=== PATIENT | female | born 1955 | race Caucasian/White ===

== ENCOUNTER → 2019-07-26 13:02 | Outpatient (BNVA) | payer MEDICARE, OTHER, SELFPAY | PROVIDERS: Visit Provider Internal Medicine Rheumatology | DX: M05.9 Rheumatoid arthritis with rheumatoid factor, unspecified (principal); L23.0 Allergic contact dermatitis due to metals; M25.561 Pain in right knee; M25.562 Pain in left knee; G89.29 Other chronic pain; Z96.653 Presence of artificial knee joint, bilateral | CPT/HCPCS: 99214 ==

== ENCOUNTER 2019-11-20 06:24 | Emergency (ER) | payer MEDICARE, OTHER, SELFPAY ==
[2019-11-20] VITALS (9 sets, daily range): BP systolic 119–156; BP diastolic 52–75; PULSE 74–81; RESP 16–20; TEMP 36.8; O2SAT 92–100; BMI 44.4
--- NOTE | 2019-11-20 06:45 | XR_ITS ---
WS: [id number] LEFT HIP HISTORY: pain COMPARISON: 04/18/2019 LEFT hip: Quality examination is limited by body habitus. Poor visualization of the joint and osseous structures. Mild narrowing of the hip joint. XR/XR hip LT 2-3V wo/w pel* [id number] IMPRESSION: 1. Technically very limited evaluation of the LEFT hip due to body habitus. 2. No fracture identified.
--- NOTE | 2019-11-20 06:45 | XR_ITS ---
WS: [id number] LEFT KNEE: 3 VIEW(S) TECHNIQUE: AP, oblique(s) and lateral. HISTORY: pain COMPARISON: 04/18/2019 LEFT knee prosthesis with long revision's on each side of the joint space. No joint space narrowing or osteophytes. No joint effusion. No soft tissue abnormality. XR/XR knee LT 3V* [id number] IMPRESSION: 1. Status post LEFT knee arthroplasty. 2. No fracture.
--- NOTE | 2019-11-20 06:45 | USCV_ITS ---
LazaroRadha steinberg Age: 64 Gender: F : 1955 Exam Date: 11/20/2019 08:17 Ordering Phys: Jacinta Moore MD Technologist: Marycruz Vargas [place] [facility] [place]: [place] HISTORY: Left lower extremity pain. PROCEDURES: Comparison: none available. Venous duplex imaging was performed in only the left lower extremity. The following venous structures were evaluated: common femoral vein, profunda vein, proximal portion of the greater saphenous vein, superficial femoral vein, and the popliteal vein. In addition, the posterior tibial and peroneal trunk were evaluated. Serial compression, augmentation maneuvers, and spectral Doppler flow evaluation were performed. FINDINGS: Examination was technically limited due to body habitus. Normal 2-D Doppler and augmentation and compressibility throughout the lower extremity venous structures. Additional imaging through the proximal calf veins also reveals no thrombus. Limited evaluation of the greater saphenous vein is patent with no thrombus.. There is subcutaneous left lower extremity edema noted. CONCLUSIONS No DVT left lower extremity. There is subcutaneous left lower extremity edema noted. Dr. Amy Parsons DO (Electronically Signed) Final Date: 20 Nov 2019 09:55 S
--- NOTE | 2019-11-20 06:45 | XR_ITS ---
WS: [id number] PORTABLE CHEST HISTORY: cp COMPARISON: None available. Lungs are clear and well expanded. No pleural effusion or pneumothorax. Cardiac size: Normal. Mediastinum/Aorta: Normal mediastinum. No osseous abnormality seen. XR/XR chest 1V portable [id number] IMPRESSION: Unremarkable portable chest.
--- NOTE | 2019-11-20 06:45 | ECG_ITS ---
Measurements Intervals [place] Rate: 73 P: 43 ME: 161 QRS: -22 QRSD: 91 T: 7 QT: 363 QTc: 401 SINUS RHYTHM LOW QRS VOLTAGE IN PRECORDIAL LEADS [QRS DEFLECTION < 1.0 mV IN CHEST LEADS] No previous ECG available for comparison Electronically Signed On 11-20-2019 10:29:34 CDT by Ciro Villegas MD [id number]
--- NOTE | 2019-11-20 06:48 | W.ED.EXTPRO ---
HPI - Extremity Problem General: Chief complaint: Extremity Injury, Lower Stated complaint: L LEG PAIN Time Seen by Provider: 11/20/19 06:26 Source: patient Mode of arrival: ambulatory Limitations: no limitations History of Present Illness: HPI Narrative: 64-year-old female with a history of chronic left knee pain from arthritis. Patient has had multiple knee replacements on that knee. She states she started having knee pain again yesterday and is went to her hip as well. States the pain is sharp in nature and much worse with walking. It is improved with rest. States she has had pain in her calf as well and does have a history of DVT in the past. She states she had slight chest pain yesterday with her pain in her knee that is since resolved. She denies any shortness of breath. She denies any fever or cough. MD Complaint: extremity pain Onset (ago): day(s) Pain Consistency: constant Location: left Severity scale (1-10): 6 Quality: sharp Radiation: none Relieving factors: nothing Exacerbating factors: nothing Associated symptoms: Deny chest pain, fever(s) or rash Review of Systems Const: Denies: fever(s), chills, body aches or change in appetite Eyes: Denies: blurry vision or eye discomfort ENMT: Denies: throat pain or dental pain Card: Denies: chest pain Resp: Denies: dyspnea GI: Denies: abdominal pain, nausea, vomiting or diarrhea : Denies: dysuria Musc: Reports: joint pain Skin/Breast: Denies: rash Neuro: Denies: headache(s) Psych: Denies: depression Andrés/Lymph: Denies: easy bruising All/Imm: Denies: urticaria PFSH ED PFSH: Medical History Chronic knee pain after total replacement of both knee joints Hypersensitivity reaction 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, current reaction Surgical History History of bilateral knee replacement Social History Smoking and tobacco status: never smoked Physical Exam Const: COMMON NORMALS: no acute distress, patient oriented x3 and healthy appearing HENMT: COMMON NORMALS: normocephalic and atraumatic HEAD & SCALP: normocephalic and atraumatic Eye: COMMON NORMALS: Equal, round and reactive pupils present and EOMs intact bilaterally PUPIL: Yes Equal, round and reactive pupils present Neck/C-Spine: COMMON NORMALS: full ROM and supple Chest: COMMONS NORMALS: normal inspection of the chest and normal palpation of entire chest wall Resp: COMMON NORMALS: normal respiratory effort, No retractions, No use of accessory muscles and clear to auscultation bilaterally AUSCULTATION: clear to auscultation bilaterally Cardio: COMMON NORMALS: regular rate, regular rhythm and No murmurs present (Cardio) RATE: regular rate RHYTHM: regular rhythm GI: COMMON NORMALS: Normal to inspection, nondistended, normoactive bowel sounds present, Soft to palpation, non-tender and no masses PALPATION: Yes Soft to palpation Extremity: NARRATIVE EXTREMITY EXAM: Tenderness to left calf along with knee and hip on the left side. No warmth or redness. Patient does have swelling but it is chronic due to lymphedema. Neuro: COMMON NORMALS: patient oriented x3, moves all extremities and no focal motor deficits Psych: COMMON NORMALS: mental status grossly normal, Normal thought process present and cooperative THOUGHT PROCESS: Normal thought process present Skin: COMMON NORMALS: no rashes or lesions noted and no wounds GENERAL SKIN EXAM: no rashes or lesions noted Course Vital Signs: Vital signs: Vital Signs Temperature 98.2 F 11/20/19 06:41 Pulse Rate 78 11/20/19 09:39 Respiratory Rate 18 11/20/19 09:39 Blood Pressure 119/52 11/20/19 09:39 Pulse Oximetry 92 11/20/19 09:39 MDM - Extremity (Nontraumatic) MDM Narrative: Medical decision making narrative: Patient presents here with knee and hip pain is acute on chronic in nature. Patient has no signs of blood clot or septic joint. X-rays are normal. Patient is stable for discharge and is to follow-up with primary care doctor in 3 to 5 days return if worsening. Lab Data: Labs: Lab Results 11/20/19 11/20/19 11/20/19 Range/Units 06:45 06:45 06:45 WBC 9.7 (4.0-10.0) 10^3/ uL RBC 4.43 (4.1-5.3) 10^6/u L Hgb 13.1 (11.5-15.3) g/dL Hct 42.2 (37.0-47.0) % MCV 95.3 (81-99) fL MCH 29.6 (28.0-34.0) pg MCHC 31.0 (30.0-36.0) g/dL RDW 14.6 (12.1-15.1) % Plt Count 308 (130-400) 10^3/c mm MPV 10.0 (7.4-10.4) fL Neut % (Auto) 69.0 % Lymph % (Auto) 18.0 % Mcduffie % (Auto) 7.9 % Eos % (Auto) 3.2 % Baso % (Auto) 0.7 % Neut # (Auto) 6.7 (1.8-7.7) 10^3/u L Lymph # (Auto) 1.8 (0.8-4.8) 10^3/u L Mcduffie # (Auto) 0.8 (0.2-0.9) 10^3/u L Eos # (Auto) 0.3 (0.0-0.8) 10^3/u L Baso # (Auto) 0.1 (0.0-0.1) 10^3/u L Nucleated RBC % (a uto) 0 % Nucleated RBCs # 0.0 /100WBC Sodium 138 (136-145) mmol/L Potassium 4.2 (3.5-5.1) mmol/L Chloride 98 (98-107) mmol/L Carbon Dioxide 27 (22-29) mmol/L Anion Gap 17.2 (5-19) BUN 21 (8-23) mg/dL Creatinine 1.0 H (0.5-0.9) mg/dL GFR Calculation 55.5 L (90-130) mL/min Glucose 146 H (65-115) mg/dL Calculated Osmolal ity 285 (285-295) mOsm/k g Calcium 9.8 (8.5-10.5) mg/dL Total Bilirubin 0.3 (0.15-1.2) mg/dL AST 15 (0-32) U/L ALT 22 (0-33) U/L Alkaline Phosphata se 80 (35-105) IU/L Troponin T Baselin e 8 (0-10) ng/mL Troponin T 120 Min cachil dehe (0-10) ng/mL Delta Troponin T (0-10) ABS# Total Protein 7.2 (6.6-8.7) g/dL Albumin 4.3 (3.5-5.2) g/dL Globulin 2.9 (1.3-4.6) g/dL 05/25/20 Range/Units 08:48 WBC (4.0-10.0) 10^3/ uL RBC (4.1-5.3) 10^6/u L Hgb (11.5-15.3) g/dL Hct (37.0-47.0) % MCV (81-99) fL MCH (28.0-34.0) pg MCHC (30.0-36.0) g/dL RDW (12.1-15.1) % Plt Count (130-400) 10^3/c mm MPV (7.4-10.4) fL Neut % (Auto) % Lymph % (Auto) % Mcduffie % (Auto) % Eos % (Auto) % Baso % (Auto) % Neut # (Auto) (1.8-7.7) 10^3/u L Lymph # (Auto) (0.8-4.8) 10^3/u L Mcduffie # (Auto) (0.2-0.9) 10^3/u L Eos # (Auto) (0.0-0.8) 10^3/u L Baso # (Auto) (0.0-0.1) 10^3/u L Nucleated RBC % (a uto) % Nucleated RBCs # /100WBC Sodium (136-145) mmol/L Potassium (3.5-5.1) mmol/L Chloride (98-107) mmol/L Carbon Dioxide (22-29) mmol/L Anion Gap (5-19) BUN (8-23) mg/dL Creatinine (0.5-0.9) mg/dL GFR Calculation (90-130) mL/min Glucose (65-115) mg/dL Calculated Osmolal ity (285-295) mOsm/k g Calcium (8.5-10.5) mg/dL Total Bilirubin (0.15-1.2) mg/dL AST (0-32) U/L ALT (0-33) U/L Alkaline Phosphata se (35-105) IU/L Troponin T Baselin e (0-10) ng/mL Troponin T 120 Min cachil dehe 8.94 (0-10) ng/mL Delta Troponin T 0.94 (0-10) ABS# Total Protein (6.6-8.7) g/dL Albumin (3.5-5.2) g/dL Globulin (1.3-4.6) g/dL Imaging Data^: CXR: Attestation: I personally reviewed and interpreted this imaging study as follows: My impression: no acute abnormality xr L hip: Attestation: I personally reviewed and interpreted this imaging study as follows: My impression: no acute abnormality xr L knee: Attestation: I personally reviewed and interpreted this imaging study as follows: My impression: no acute abnormality EKG Data^: EKG 1: Attestation: I personally reviewed and interpreted this EKG as follows: EKG interpretation date: 11/20/19 EKG interpretation time: 07:16 Interpretation: nsr hr [address] or t wave abnormalities qrs 91 qtc 388 EKG 2: Attestation: I personally reviewed and interpreted this EKG as follows: EKG interpretation date: 11/20/19 EKG interpretation time: 08:46 Interpretation: nsr hr [address] or t wave abnormalities qrs 93 qtc 373 Discharge Plan Discharge Patient Disposition: Home, Self-Care Clinical Impression: Hip pain, left Knee pain, left Qualifiers: Chronicity: acute Qualified Code(s): M25.562 - Pain in left knee Condition: Stable Prescriptions: New Robaxin-750 750 mg tablet 750 mg PO Q6H Qty: 30 RF: 0 Naprosyn 500 mg tablet 500 mg PO BID PRN (Reason: pain) Qty: 20 RF: 0 No Action potassium chloride 10 mEq capsule, extended release 10 meq PO BID RF: 0 oxycodone 5 mg tablet 5 mg PO Q6H PRN (Reason: Pain) RF: 0 losartan 50 mg tablet 25 mg PO DAILY RF: 0 tizanidine 4 mg capsule 4 mg PO Q8H PRN (Reason: Pain) RF: 0 furosemide [Lasix] 20 mg tablet 40 mg PO QAM RF: 0 pioglitazone 30 mg tablet 30 mg PO DAILY RF: 0 albuterol sulfate 90 mcg/actuation HFA aerosol inhaler 2 puff INHALATION Q6H PRN (Reason: Shortness Of Breath) RF: 0 levothyroxine 100 mcg capsule 175 mcg PO DAILY RF: 0 pramipexole 0.5 mg tablet 0.5 mg PO TID RF: 0 diclofenac sodium [Voltaren] 1 % gel 2 gm TOPICAL QID PRN (Reason: UNKNOWN) RF: 0 lactulose 10 gram/15 mL solution See Rx Instructions .ROUTE .COMPLEX RF: 0 aspirin [Aspirin Low Dose] 81 mg Tablet,Delayed Release (Dr/Ec) 81 mg PO DAILY RF: 0 glimepiride 4 mg Tablet 4 mg PO QAM RF: 0 nitroglycerin 0.4 mg Tablet, Sublingual 0.4 mg SUBLINGUAL Q5M PRN (Reason: Chest Pain) RF: 0 gabapentin 300 mg Capsule 300 mg PO TID RF: 0 montelukast 10 mg Tablet 10 mg PO QPM RF: 0 metoprolol succinate 50 mg Capsule,Sprinkle,Er 24hr 50 mg PO DAILY RF: 0 magnesium oxide 400 mg magnesium Tablet 400 mg PO DAILY RF: 0 Calcium 500 500 mg calcium (1,250 mg) Tablet 500 mg PO DAILY RF: 0 Arnuity Ellipta 200 mcg/actuation Blister With Device 1 inh INHALATION DAILY RF: 0 Spiriva Respimat 1.25 mcg/actuation Mist 2 puff INHALATION DAILY RF: 0 Discharge Orders: Discharge Order (Routine); Ordered 11/20/19 Ordered By: Jacinta Moore Discharge Diet: Advance as tolerated Discharge Activity: Resume usual activity Patient Instructions: Knee Pain (ED) Discharge Date/Time: 11/20/19 09:39 Coding Level of Care Code ED Contract Designer for Chg Fwd Exam Comprehensive
[2019-11-20 06:58] LABS: Basophils # 0.1 10^3/uL (0.0-0.1); Basophils % 0.7 %; Eosinophils # 0.3 10^3/uL (0.0-0.8); Eosinophils % 3.2 %; Hematocrit 42.2 % (37.0-47.0); Hemoglobin 13.1 g/dL (11.5-15.3); Lymphocytes # 1.8 10^3/uL (0.8-4.8); Mean Corpuscular Hemoglobin 29.6 pg (28.0-34.0); Mean Corpuscular Volume 95.3 fL (81-99); Monocytes # 0.8 10^3/uL (0.2-0.9); Monocytes % 7.9 %; Neutrophils # 6.7 10^3/uL (1.8-7.7); Nucleated Red Blood Cells % 0 %; Platelet Count 308 10^3/cmm (130-400); Red Blood Count 4.43 10^6/uL (4.1-5.3); Red Cell Distribution Width 14.6 % (12.1-15.1); White Blood Count 9.7 10^3/uL (4.0-10.0)
[2019-11-20] MEDS: ondansetron 2 mg/ML SDV 2 mL 4 MG IVP (07:05)
[2019-11-20] MEDS: morphine 4 mg/mL SDV 1 mL IVP ×3 (07:05→08:46)
[2019-11-20 07:11] LABS: Alanine Aminotransferase 22 U/L (0-33); Albumin Level 4.3 g/dL (3.5-5.2); Alkaline Phosphatase 80 IU/L (35-105); Anion Gap 17.2 (5-19); Aspartate Amino Transferase 15 U/L (0-32); Blood Urea Nitrogen 21 mg/dL (8-23); Calcium 9.8 mg/dL (8.5-10.5); Carbon Dioxide 27 mmol/L (22-29); Chloride 98 mmol/L (98-107); Globulin 2.9 g/dL (1.3-4.6); Glomerular Filtration Rate 55.5 mL/min (90-130); Glucose 146 mg/dL (65-115); Osmolality Calculated 285 mOsm/kg (285-295); Potassium 4.2 mmol/L (3.5-5.1); Sodium 138 mmol/L (136-145); Total Bilirubin 0.3 mg/dL (0.15-1.2); Total Protein 7.2 g/dL (6.6-8.7)
[2019-11-20 07:12] LABS: Troponin(5th) Baseline 8 ng/mL (0-10)
[2019-11-20] MEDS: dexamethasone 10 mg/mL INJ IVP (09:09)
[2019-11-20 09:25] LABS: Troponin 5 2HR 8.94 ng/mL (0-10); Troponin 5 2HR Delta 0.94 ABS# (0-10)
--- NOTE | 2019-11-20 12:45 | ECG_ITS ---
Measurements Intervals [place] Rate: 64 P: 52 MS: 155 QRS: -16 QRSD: 93 T: 26 QT: 364 QTc: 376 SINUS RHYTHM WITH OCCASIONAL VENTRICULAR PREMATURE COMPLEXES LOW QRS VOLTAGE IN PRECORDIAL LEADS [QRS DEFLECTION < 1.0 mV IN CHEST LEADS] POSSIBLE ANTERIOR MYOCARDIAL INFARCTION , PROBABLY OLD [30 ms Q WAVE IN V3/V4, OR R < 0.2 mV IN V4] No previous ECG available for comparison Electronically Signed On 11-20-2019 10:33:21 CDT by Ciro Villegas MD [email or web address]
== END 2019-11-20 09:39 | disposition home or self-care (01) ==
PROVIDERS: Emergency Provider Emergency Medicine
DX: M25.552 Pain in left hip (principal); Z79.82 Long term (current) use of aspirin; Z96.653 Presence of artificial knee joint, bilateral
CPT/HCPCS: 12345; 36415; 71045; 73502; 73562; 80053; 84484; 85025; 93005; 93010; 93971; 96374; 96375; 96376; 99283; 99284; J1100; J2270; J2405

== ENCOUNTER 2019-12-07 06:00 | Outpatient (RCR) | payer MEDICARE, OTHER, SELFPAY | END 2019-12-26 23:59 | disposition home or self-care (01) | LOC: MPT 06:00 | PROVIDERS: PCP Internal Medicine; Visit Provider Internal Medicine | DX: M54.42 Lumbago with sciatica, left side (principal) | CPT/HCPCS: 97110; 97140; 97161; 97530 ==

== ENCOUNTER 2020-01-24 15:18 | Outpatient (CLI) | payer MEDICARE, OTHER, SELFPAY ==
[2020-01-24 15:50] LABS: Basophils # 0.1 10^3/uL (0.0-0.1); Basophils % 0.9 %; Eosinophils # 0.3 10^3/uL (0.0-0.8); Eosinophils % 2.3 %; Hematocrit 41.9 % (37.0-47.0); Hemoglobin 12.9 g/dL (11.5-15.3); Mean Corpuscular HGB Conc 30.8 g/dL (30.0-36.0); Mean Corpuscular Hemoglobin 30.2 pg (28.0-34.0); Mean Corpuscular Volume 98.1 fL (81-99); Mean Platelet Volume 9.7 fL (7.4-10.4); Monocytes # 0.9 10^3/uL (0.2-0.9); Neutrophils # 7.71 10^3/uL (1.8-7.7); Neutrophils % 69.7 %; Nucleated Red Blood Cells % 0 %; Platelet Count 307 10^3/cmm (130-400); Red Blood Count 4.27 10^6/uL (4.1-5.3); Red Cell Distribution Width 14.7 % (12.1-15.1); White Blood Count 11.1 10^3/uL (4.0-10.0)
[2020-01-25 17:44] LABS: Immunoglobulin E 7 kU/L (<OR=114)
== END 2020-01-24 15:19 | disposition home or self-care (01) ==
LOC: LAB 15:22
PROVIDERS: PCP Internal Medicine; Visit Provider Internal Medicine Pulmonary Disease
DX: R05 Cough (principal); K21.9 Gastro-esophageal reflux disease without esophagitis; R09.82 Postnasal drip; J45.909 Unspecified asthma, uncomplicated; Z86.718 Personal history of other venous thrombosis and embolism; Z86.711 Personal history of pulmonary embolism
CPT/HCPCS: 82785; 85025

== ENCOUNTER 2020-02-05 10:39 | Outpatient (CLI) | payer MEDICARE, SELFPAY ==
--- NOTE | 2020-02-05 10:45 | FL_ITS ---
WS: [id number] UPPER GI WITH AIR TECHNICAL: Double contrast upper GI. Only AP imaging could be performed due to patient's difficulty w ith mobility. Limited examination. FLUOROSCOPY TIME: 3 minutes CLINICAL INFORMATION: K21.9 Gastro-esophageal reflux disease without esophagitis COMPARISON: None. FINDINGS: Swallowing: Normal. Esophagus: Moderate esophageal dysmotility. Fundoplication appears intact with narrowing at the GE ju nction. Delayed emptying on the upright and supine imaging with tertiary contractions. Gastroesophageal reflux: Moderate Stomach: Limited evaluation grossly normal. Duodenum: Limited evaluation grossly normal Other findings: None. FL/FL upper GI w air* [id number] IMPRESSION: 1. Limited examination due to patient's difficulty with positioning 2. Moderate esophageal dysmotility with tertiary contractions in the distal es ophagus. Active reflux is visualized into the mid and upper esophagus with calvin yed emptying. 3. Delayed emptying on the upright and supine imaging. Gen fundoplication a ppears grossly intact. Expected Gen narrowing at the GE junction. 4. Limited double contrast stomach appears unremarkable with no gross abnormal ities
== END 2020-02-05 10:40 | disposition home or self-care (01) ==
PROVIDERS: PCP Internal Medicine; Visit Provider Surgery
DX: K21.9 Gastro-esophageal reflux disease without esophagitis (principal)
CPT/HCPCS: 74246

== ENCOUNTER → 2020-02-12 11:19 | Outpatient (BNVA) | payer MEDICARE, OTHER, SELFPAY | PROVIDERS: PCP Internal Medicine; Visit Provider Internal Medicine | DX: R05 Cough (principal); Z20.828 Contact with and (suspected) exposure to other viral communicable diseases | CPT/HCPCS: 87635 ==

== ENCOUNTER 2020-02-15 11:19 | Outpatient (CLI) | payer MEDICARE, SELFPAY ==
--- NOTE | 2020-02-15 13:46 | PFTS_ITS ---
Date of Study:02/15/20 Date of Dictation: MECHANICS: Forced vital capacity (FVC) is normal. Forced expiratory volume in one second (FEV1) is normal. FEV1/FVC is normal. FLOW VOLUME LOOP: Normal. LUNG VOLUMES: Total lung capacity (TLC) is normal. Residual volume (RV) is elevated. DIFFUSING CAPACITY FOR CARBON MONOXIDE: Mild reduced. INTERPRETATION: Spirometry is normal. Lung volumes revealed mildly increased residual volume which is likely nonspecific. Gas exchange (DLCO) is mildly reduced. MTDD
== END 2020-02-15 11:20 | disposition home or self-care (01) ==
LOC: RT 11:21
PROVIDERS: PCP Internal Medicine; Visit Provider Internal Medicine Pulmonary Disease
DX: J45.909 Unspecified asthma, uncomplicated (principal)
CPT/HCPCS: 94010; 94726; 94729

== ENCOUNTER 2020-03-18 11:22 | Outpatient (RCR) | payer MEDICARE, SELFPAY | END 2020-03-27 23:59 | disposition home or self-care (01) | LOC: MPT 11:22 | PROVIDERS: PCP Internal Medicine; Referring Provider Internal Medicine; Visit Provider Internal Medicine | DX: M54.30 Sciatica, unspecified side (principal) | CPT/HCPCS: 97110; 97140; 97161; 97530 ==

== ENCOUNTER 2020-03-28 06:00 | Outpatient (RCR) | payer MEDICARE, SELFPAY | END 2020-04-27 23:59 | disposition home or self-care (01) | LOC: MPT 06:00 | PROVIDERS: PCP Internal Medicine; Referring Provider Internal Medicine; Visit Provider Internal Medicine | DX: M54.42 Lumbago with sciatica, left side (principal) | CPT/HCPCS: 97110; 97113; 97140; 97530; L0637 ==

== ENCOUNTER 2020-04-28 06:00 | Outpatient (RCR) | payer MEDICARE, SELFPAY | END 2020-05-27 23:59 | disposition home or self-care (01) | LOC: MPT 06:00 | PROVIDERS: PCP Internal Medicine; Referring Provider Internal Medicine; Visit Provider Internal Medicine | DX: M54.30 Sciatica, unspecified side (principal) | CPT/HCPCS: 97110; 97140; 97530 ==

== ENCOUNTER 2020-04-29 13:14 | Outpatient (CLI) | payer MEDICARE, SELFPAY ==
--- NOTE | 2020-04-29 13:30 | USCV_ITS ---
Lazaro Radha Age: 65 Gender: F : 1955 Exam Date: 04/29/2020 13:16 Ordering Phys: Pio Samuels MD Technologist: Mabel Urrutia [place] [facility] [place] HX OF PE BP: 120 / 51 HR: 92 Rhythm: Sinus Technical Quality: Adequate MEASUREMENTS (Male / Female) Normal Values 2D ECHO LV Diastolic Diameter PLAX 4.0 cm 4.2 - 5.9 / 3.9 - 5.3 cm LV Systolic Diameter PLAX 2.9 cm LV Chamber Size 3.2 cm IVS Diastolic Thickness 0.9 cm 0.6 - 1.0 / 0.6 - 0.9 cm IVS Systolic Thickness 1.4 cm LVPW Diastolic Thickness 2.2 cm 0.6 - 1.0 / 0.6 - 0.9 cm LVPW Systolic Thickness 2.3 cm RV Chamber Size 2.8 cm LVOT Diameter 2.0 cm LV Ejection Fraction 2D Teich 52.9 % LV Ejection Fraction MOD 2C 66.3 % LV Ejection Fraction 2C AL 70.3 % LA Diameter 3.5 cm LA Width 3.1 cm LA Height 4.5 cm RA Width 2.8 cm RA Height 4.2 cm Aorta at Sinotubular Diameter 2.9 cm M-MODE LV Diastolic Diameter MM 4.9 cm 4.2 - 5.9 / 3.9 - 5.3 cm LV Systolic Diameter MM 2.9 cm LV Ejection Fraction MM Teich 72.9 % IVS Diastolic Thickness MM 0.7 cm 0.6 - 1.0 / 0.6 - 0.9 cm IVS Systolic Thickness MM 1.0 cm LVPW Diastolic Thickness MM 0.8 cm 0.6 - 1.0 / 0.6 - 0.9 cm LVPW Systolic Thickness MM 1.2 cm Aortic Annulus Diameter 3.1 cm LA Ao Ratio MM 1.4 MV E Point Septal Separation 0.7 cm DOPPLER AV Peak Velocity 134.0 cm/s LVOT Peak Velocity 109.0 cm/s AV Area Cont Eq vti 2.9 cm squared AV Area Cont Eq pk 2.6 cm squared MV Area PHT 6.5 cm squared Mitral E to A Ratio 0.6 MV E' Velocity 37.5 cm/s Mitral E to MV E' Ratio 5.5 Mitral E to LV E' Lateral Ratio 5.1 Mitral E to LV E' Septal Ratio 6.0 TR Peak Velocity 234.3 cm/s TR Peak Gradient 22.0 mmHg TV Peak E Velocity 53.0 cm/s Right Atrial Pressure 3.0 mmHg Pulmonary Artery Systolic Pressu 25.0 mmHg PV Peak Velocity 82.0 cm/s RV Acceleration Time 0.2 s RV Ejection Time 0.4 s RV AcT/ET 0.4 FINDINGS Left Ventricle Normal left ventricular size and systolic function, EF 67 %. No regional wall motion abnormalities. Grade I/IV diastolic dysfunction (abnormal relaxation filling pattern), normal to mildly elevated filling pressures. Right Ventricle Possibly normal size and ejection fraction Right Atrium Normal right atrial size. Normal right atrial size. Left Atrium Normal left atrial size. Mitral Valve No gross abnormalities noted Aortic Valve No gross abnormalities noted Tricuspid Valve No gross abnormalities noted Pulmonic Valve Pulmonic valve not well visualized. Pericardium No pericardial effusion. Aorta Normal aortic annulus size. CONCLUSIONS Normal left ventricular size and systolic function, EF 67 %. No regional wall motion abnormalities. Grade I/IV diastolic dysfunction (abnormal relaxation filling pattern), normal to mildly elevated filling pressures. No significant valvular abnormalities Normal cardiac chamber sizes Technically difficult study because of the poor ultrasonic window. Dr Uday Ramirez MD FACC (Electronically Signed) Final Date: 29 April 2020 21:13 S
== END 2020-04-29 13:15 | disposition home or self-care (01) ==
LOC: US 13:16
PROVIDERS: PCP Internal Medicine; Visit Provider Internal Medicine Pulmonary Disease
DX: Z86.711 Personal history of pulmonary embolism (principal); Z86.718 Personal history of other venous thrombosis and embolism
CPT/HCPCS: 93306

== ENCOUNTER 2020-05-28 06:00 | Outpatient (RCR) | payer MEDICARE, SELFPAY | END 2020-06-27 23:59 | disposition home or self-care (01) | LOC: MPT 06:00 | PROVIDERS: PCP Internal Medicine; Referring Provider Internal Medicine; Visit Provider Internal Medicine | DX: M54.30 Sciatica, unspecified side (principal) | CPT/HCPCS: 97110; 97140; 97530 ==

== ENCOUNTER 2020-06-17 12:35 | Outpatient (CLI) | payer MEDICARE, SELFPAY ==
--- NOTE | 2020-06-17 12:46 | XRR_ITS ---
PROCEDURE INFORMATION: Exam: XR Chest, 2 Views Exam date and time: 06/17/2020 12:51 PM Age: 65 years old Clinical indication: Cough and shortness of breath; Additional info: Rule out pneumonia TECHNIQUE: Imaging protocol: XR of the chest Views: 2 views. COMPARISON: CR XR chest 1V portable [id number] 11/20/2019 6:47 AM FINDINGS: Lungs: Unremarkable. No consolidation. Pleural space: Unremarkable. No pleural effusion. No pneumothorax. Heart/Mediastinum: Unremarkable. No cardiomegaly. Bones/joints: Unremarkable. XR/XR chest 2V* [id number] IMPRESSION: No acute findings.
== END 2020-06-17 12:36 | disposition home or self-care (01) ==
PROVIDERS: PCP Internal Medicine; Visit Provider Internal Medicine Pulmonary Disease
DX: J18.9 Pneumonia, unspecified organism (principal)
CPT/HCPCS: 71046

== ENCOUNTER 2020-06-28 06:00 | Outpatient (RCR) | payer MEDICARE, SELFPAY | END 2020-07-28 23:59 | disposition home or self-care (01) | LOC: MPT 06:00 | PROVIDERS: PCP Internal Medicine; Referring Provider Internal Medicine; Visit Provider Internal Medicine | DX: M54.30 Sciatica, unspecified side (principal) | CPT/HCPCS: 97110; 97140; 97530 ==

== ENCOUNTER 2020-07-29 06:00 | Outpatient (RCR) | payer MEDICARE, SELFPAY | END 2020-08-25 23:59 | disposition home or self-care (01) | LOC: MPT 06:00 | PROVIDERS: PCP Internal Medicine; Referring Provider Internal Medicine; Visit Provider Internal Medicine | DX: M54.30 Sciatica, unspecified side (principal) | CPT/HCPCS: 97110; 97140 ==

== ENCOUNTER → 2020-08-15 00:01 | Outpatient (BNVA) | payer MEDICARE, SELFPAY | PROVIDERS: PCP Internal Medicine; Visit Provider Family Medicine | DX: R30.0 Dysuria (principal) | CPT/HCPCS: 81000; 87077; 87086; 87184 ==

== ENCOUNTER 2020-08-26 06:00 | Outpatient (RCR) | payer MEDICARE, SELFPAY | END 2020-09-25 23:59 | disposition home or self-care (01) | LOC: MPT 06:00 | PROVIDERS: PCP Internal Medicine; Referring Provider Internal Medicine; Visit Provider Internal Medicine | DX: M54.30 Sciatica, unspecified side (principal) | CPT/HCPCS: 97140; 97530 ==

== ENCOUNTER 2020-09-26 06:00 | Outpatient (RCR) | payer MEDICARE, SELFPAY | END 2020-10-25 23:59 | disposition home or self-care (01) | LOC: MPT 06:00 | PROVIDERS: PCP Internal Medicine; Referring Provider Internal Medicine; Visit Provider Internal Medicine | DX: R22.43 Localized swelling, mass and lump, lower limb, bilateral (principal) | CPT/HCPCS: 97140; 97530 ==

== ENCOUNTER → 2020-10-07 11:11 | Outpatient (BNVA) | payer MEDICARE, SELFPAY | PROVIDERS: PCP Internal Medicine; Visit Provider Family Medicine | DX: R39.9 Unspecified symptoms and signs involving the genitourinary system (principal) | CPT/HCPCS: 81000; 87077; 87086; 87184 ==

== ENCOUNTER → 2020-10-16 08:44 | Outpatient (BNVA) | payer MEDICARE, SELFPAY | PROVIDERS: PCP Internal Medicine; Referring Provider Family Medicine; Visit Provider Podiatrist Foot & Ankle Surgery | DX: M79.671 Pain in right foot (principal); M79.672 Pain in left foot; M21.41 Flat foot [pes planus] (acquired), right foot; M21.42 Flat foot [pes planus] (acquired), left foot | CPT/HCPCS: 73630 ==

== ENCOUNTER 2020-10-16 13:31 | Outpatient (CLI) | payer MEDICARE, SELFPAY | END 2020-10-16 13:32 | disposition home or self-care (01) | LOC: SPT 13:33 | PROVIDERS: PCP Internal Medicine; Visit Provider Podiatrist Foot & Ankle Surgery | DX: Z46.89 Encounter for fitting and adjustment of other specified devices (principal); M76.821 Posterior tibial tendinitis, right leg | CPT/HCPCS: 97760; L1902 ==

== ENCOUNTER 2020-11-03 08:46 | Emergency (ER) | payer MEDICARE, SELFPAY ==
[2020-11-03 08:57] VITALS: BP 154/75; PULSE 99; RESP 20; TEMP 36.7; O2SAT 100; BMI 43.2
--- NOTE | 2020-11-03 09:00 | CTR_ITS ---
PROCEDURE INFORMATION: Exam: CT Abdomen And Pelvis With Contrast Exam date and time: 11/03/2020 9:20 AM Age: 65 years old Clinical indication: Abdominal pain TECHNIQUE: Imaging protocol: Computed tomography of the abdomen and pelvis with contrast. Radiation optimization: All CT scans at this facility use at least one of these dose optimization techniques: automated exposure control; mA and/or kV adjustment per patient size (includes targeted exams where dose is matched to clinical indication); or iterative reconstruction. Contrast material: OMNI 300; Contrast volume: 95 ml; Contrast route: INTRAVENOUS (IV); COMPARISON: CR XR hip LT 2-3V wo/w pel* [id number] 11/20/2019 6:47 AM RADIATION DOSE METRICS: Total DLP (mGy-cm): 1804.42 FINDINGS: Liver: Normal. No mass. Gallbladder and bile ducts: Normal. No calcified stones. No ductal dilation. Pancreas: Normal. No ductal dilation. Spleen: Normal. No splenomegaly. Adrenal glands: Normal. No mass. Kidneys and ureters: Normal. No hydronephrosis. Stomach and bowel: 3.1 x 2.4 x 1.7 cm epiploic appendagitis anterior to the mid descending colon. Mild bowel wall thickening in the mid descending colon at the same level which could represent coexisting mild infectious colitis. Mild diverticulosis in the left colon without definite diverticulitis. Appendix: Normal appendix. Intraperitoneal space: Unremarkable. No free air. No significant fluid collection. Vasculature: IVC filter. Lymph nodes: Unremarkable. No enlarged lymph nodes. Urinary bladder: Unremarkable as visualized. Reproductive: Unremarkable as visualized. Bones/joints: Unremarkable. No acute fracture. Soft tissues: Unremarkable. CT/CT abdomen pelvis w con* [id number] IMPRESSION: 1. 3.1 x 2.4 x 1.7 cm epiploic appendagitis anterior to the mid descending colon. 2. Mild bowel wall thickening in the mid descending colon at the same level which could represent coexisting mild infectious colitis. 3. Mild diverticulosis in the left colon without definite diverticulitis. COMMENTS: For patients with an IVC filter, recommend assessment for a management plan for the patient's IVC filter. If there is no established management plan, recommend referral to an interventional clinician on a nonemergent basis for evaluation. Radiation Dose CTDIVOL = (mGy): DLP = 1804.42 (mGy-cm)
--- NOTE | 2020-11-03 09:04 | W.ED.ABDPA2 ---
HPI - Abdominal Pain General: Chief Complaint: Abdominal Pain Stated Complaint: L SIDE PAIN (3 DAYS) Time Seen by Provider: 11/03/20 08:50 Source: patient Mode of arrival: ambulatory Limitations: no limitations History of Present Illness: HPI narrative: Radha is a very nice 44-year-old female comes in complaining of a 3-day history of left-sided abdominal pain. Said the pain was gradual in onset this got progressively worse. She stated initially the pain was in the left lower quadrant was a dull aching pain with occasional sharp stabbing pains. Over the next 2 days the patient is describing pain that is moved more proximal is not the left upper quadrant. The pain is causing her to feel nauseous but she has not vomited. She denies any fevers or chills. She denies any urinary frequency, urgency or dysuria. She has not witnessed any hematuria. Patient denies any vaginal discharge or bleeding. Patient states that she is chronically constipated but has noticed that her stools have been more loose but was not called in maru diarrhea. Is been no blood in her stools. She is unaware of anything that makes her symptoms better or worse. Patient denies ever having anything similar to this in the past. Because the pain is progressed and she cannot get relief she decided to come to the hospital to be evaluated. Associated Symptoms: Reports diarrhea and nausea; Denies chills, coffee ground emesis, constipation, GI cramping, dysuria, fever(s), heartburn, hematochezia, hematuria, hematemesis, melena, syncope and vomiting Review of Systems Const: Denies: fever(s), chills, body aches, fatigue, malaise or diaphoresis Eyes: Denies: change in vision, blurry vision, photophobia, eye discomfort, eye discharge, eye redness or yellow eyes ENMT: Denies: throat pain, odynophagia, hoarseness, swelling of lips/tongue, ear or mastoid pain, ear discharge, change in hearing or nasal discharge Card: Denies: chest pain, palpitations, irregular heart rhythm, edema, lightheadedness, syncope, pre-syncope, dyspnea on exertion or orthopnea Resp: Denies: dyspnea, productive cough, non-productive cough, wheezing, hemoptysis or chest congestion GI: Reports: abdominal pain, nausea and diarrhea; Denies: vomiting, hematemesis, coffee ground emesis, heartburn, constipation, GI cramping, hematochezia or melena : Denies: flank pain, dysuria, urinary frequency, urinary urgency or hematuria Musc: Denies: neck pain, back pain, extremity pain, extremity swelling, joint pain, joint swelling, joint redness, joint warmth or joint stiffness Skin/Breast: Denies: rash, pruritus, erythema, skin pain or skin tenderness Neuro: Denies: headache(s), numbness in extremities, weakness in extremities, sensory changes, lack of coordination, difficulty walking, dizziness, vertigo, confusion, Slurred speech present or seizure-like activity Andrés/Lymph: Denies: easy bruising, easy bleeding, petechiae, purpura or enlarged lymph nodes All/Imm: Denies: urticaria, throat swelling, tongue swelling, facial swelling or acute wheezing PFSH ED PFSH: Medical History Arthritis of both knees Chronic knee pain after total replacement of both knee joints Diabetes mellitus Encounter for health education History of revision of total replacement of left knee joint (~2017) Hypersensitivity reaction Mechanical complication of prosthetic knee implant Morbid obesity Nickel allergy, current reaction Surgical History History of bilateral knee replacement History of colonoscopy (~2017) History of esophagogastroduodenoscopy (EGD) (~2017) History of Gen fundoplication (~2010) History of total bilateral knee replacement Family History Denies family history of Anesthesia complication Bleeding disorder Social History Smoking and tobacco status: never smoked Second hand smoke exposure: Yes Smoking risk assessment/counseling performed?: Yes Alcohol intake: never Lives independently: Yes Household members: spouse Marital status: Current occupational status: retired Pets and animals: No History of recent travel: No Current gender identity: Female Female Reproductive History: Spontaneous abortions: No Physical Exam Const: COMMON NORMALS: no acute distress, patient oriented x3, no limitations and alert GENERAL APPEARANCE: cooperative HENMT: COMMON NORMALS: normocephalic, atraumatic, external ears normal, EAC's normal and Normal external nose present HEAD & SCALP: normal to inspection, normocephalic and atraumatic FACE & SINUS: normal facial exam and face symmetric NOSE: Normal external nose present and Normal nares present EXTERNAL EAR: Yes external ears normal EXTERNAL AUDITORY CANAL: EAC's normal MOUTH: Normal oral and palatal mucosa present, lip normal and tongue normal Eye: COMMON NORMALS: Equal, round and reactive pupils present and conjunctivae normal GENERAL EYE: appearance normal, both eyes and all related structures ALIGNMENT: Yes alignment normal PERIORBITAL: periorbital findings normal EYELID: eyelids normal CONJUNCTIVA: Yes conjunctivae normal SCLERA: sclerae normal PUPIL: Yes Equal, round and reactive pupils present Neck/C-Spine: COMMON NORMALS: full ROM, no lymphadenopathy, supple, no meningeal signs and no JVD GENERAL: Yes normal visual inspection and Yes trachea midline Chest: COMMONS NORMALS: normal inspection of the chest and normal palpation of entire chest wall Resp: COMMON NORMALS: normal respiratory effort, No retractions, No use of accessory muscles and clear to auscultation bilaterally EFFORT & INSPECTION: Yes able to speak in complete sentences and Yes symmetric chest movement AUSCULTATION: clear to auscultation bilaterally, no crackles, no rales, no rhonchi and no wheezes Cardio: COMMON NORMALS: no JVD, regular rate, regular rhythm, S1 normal heart sound present and S2 normal heart sound present RATE: regular rate RHYTHM: regular rhythm HEART SOUNDS: S1 normal heart sound present, S2 normal heart sound present, no click, no gallops, no murmurs and no rubs GI: COMMON NORMALS: Soft to palpation and No hepatosplenomegaly present PALPATION: Yes Soft to palpation, Yes Tenderness to palpation present (GI) Details: LUQ (Mild without rebound or guarding), No Guarding due to palpation present (GI), No Rigid due to palpation, Yes No hepatosplenomegaly present, No Hernia present, No Palpable mass present and No Pulsatile mass present : COMMON NORMALS: Yes no CVA tenderness BLADDER/KIDNEY EXAM: Yes no CVA tenderness EXTERNAL FEMALE EXAM: No Hernia present Back/Pelvis: COMMON NORMALS: no CVA tenderness, thoracic and lumbar spine normal to inspection, no thoracic nor lumbar tenderness and thoraco-lumbar ROM normal Extremity: COMMON NORMALS: normal to inspection, full ROM, capillary refill normal, no joint enlargement, no clubbing, cyanosis or edema and no calf tenderness Neuro: COMMON NORMALS: patient oriented x3, CN's II-XII intact bilaterally, moves all extremities, no focal motor deficits and no sensory deficits noted SENSORIUM/ORIENTATION: Yes alert MENINGEAL SIGNS: Yes no meningeal signs SPEECH: speech normal Psych: COMMON NORMALS: mental status grossly normal, Normal thought process present, cooperative, normal affect, speech normal and activity/motor behavior normal SPEECH: Yes normal speech THOUGHT PROCESS: Normal thought process present Skin: COMMON NORMALS: no rashes or lesions noted, turgor normal, no jaundice, no petechiae and no mottling GENERAL SKIN EXAM: no rashes or lesions noted and turgor normal Course Vital Signs: Vital signs: Vital Signs Temperature 98.0 F 11/03/20 08:57 Pulse Rate 99 11/03/20 08:57 Respiratory Rate 18 11/03/20 09:36 Blood Pressure 154/75 11/03/20 08:57 Pulse Oximetry 100 11/03/20 08:57 MDM - Abdominal Pain MDM Narrative: Medical decision making narrative: 0907 -patient is a nice 65-year-old female who comes in complaining of a 3-day history of sharp and dull constant left-sided abdominal pain. Patient's vital signs are stable and her exam does not reveal any evidence of peritonitis at this time. Differential includes diverticulitis, abdominal artery aneurysm, pancreatitis, gastritis, kidney stone among many others. We will proceed with work-up for lab, CT scan and will treat the patient for pain and nausea. 1205 -Radha CT scan comes back with epiploic appendagitis as well as some focal colitis. Her exam does not reveal evidence of peritonitis. Her white count is only slightly elevated. I reviewed the case in full with Dr. Howard who is on-call for surgery and he did not believe this needs to be treated any different than normal. She could go home with pain medication, antibiotics and nausea medication. He recommended a liquid diet and he agreed to see the patient in follow-up in his office. I reviewed this plan with the patient and she states she is currently planning on having a revision of a gastric bypass surgery by Dr. Sorenson in [place]. The surgery is scheduled for the next 9 days. She understands this may delay that surgery and she agrees to go home with the medicines as I have prescribed and we will continue her liquid diet and follow-up with Dr. Sorenson on Wednesday or Wednesday to be rechecked and to plan for her surgery in the future. She understands if she develops more pain, fever, has blood in her stools or has any other concerns she needs to return here immediately for recheck. Differential Diagnosis: Differential diagnosis abdominal pain: Likely abdominal pain, acute appendicitis, calculus of kidney, constipation, diverticulitis, gastroenteritis, pancreatitis and small bowel obstruction Lab Data: Attestation: I reviewed the patient's lab results. Labs: Lab Results 11/03/20 11/03/20 11/03/20 Range/Units 09:25 09:25 09:25 WBC 10.6 H (4.0-10.0) 10^3/ uL RBC 4.45 (4.1-5.3) 10^6/u L Hgb 13.5 (11.5-15.3) g/dL Hct 42.4 (37.0-47.0) % MCV 95.3 (81-99) fL MCH 30.3 (28.0-34.0) pg MCHC 31.8 (30.0-36.0) g/dL RDW 13.8 (12.1-15.1) % Plt Count 286 (130-400) 10^3/c mm MPV 9.9 (7.4-10.4) fL Neut % (Auto) 71.0 % Lymph % (Auto) 16.9 % Bradford % (Auto) 9.1 % Eos % (Auto) 1.5 % Baso % (Auto) 0.6 % Neut # (Auto) 7.54 (1.8-7.7) 10^3/u L Lymph # (Auto) 1.8 (0.8-4.8) 10^3/u L Bradford # (Auto) 1.0 H (0.2-0.9) 10^3/u L Eos # (Auto) 0.2 (0.0-0.8) 10^3/u L Baso # (Auto) 0.1 (0.0-0.1) 10^3/u L Nucleated RBC % (a uto) 0 % Nucleated RBCs # 0.0 /100WBC Sodium 139 (136-145) mmol/L Potassium 4.0 (3.5-5.1) mmol/L Chloride 101 (98-107) mmol/L Carbon Dioxide 26 (22-29) mmol/L Anion Gap 16.0 (5-19) BUN 17 (8-23) mg/dL Creatinine 0.7 (0.5-0.9) mg/dL GFR Calculation 83.5 L (90-130) mL/min Glucose 136 H (65-115) mg/dL Calculated Osmolal ity 292 (285-295) mOsm/k g Calcium 9.0 (8.5-10.5) mg/dL Total Bilirubin 0.4 (0.15-1.2) mg/dL AST 27 (0-32) U/L ALT 24 (0-33) U/L Alkaline Phosphata se 73 (35-105) IU/L Total Protein 7.1 (6.6-8.7) g/dL Albumin 4.1 (3.5-5.2) g/dL Globulin 3.0 (1.3-4.6) g/dL Lipase 24 (13-60) U/L Urine Color Straw (Yellow) Urine Appearance Cloudy (CLEAR) Urine pH 5 (5-7) Ur Specific Gravit y 1.020 (1.005-1.030) Urine Protein Neg (Negative) Urine Glucose (UA) Norm (Normal) Urine Ketones Negative (Negative) Urine Blood 2+ H (Negative) Urine Nitrate Negative (Negative) Urine Bilirubin Neg (Negative) Urine Urobilinogen Norm (Negative) mg/dL Ur Leukocyte Enriqueta ase 2+ H (Negative) Urine RBC 40-50 H (0-2) /hpf Urine WBC Too numerous to c nt H (0-5) /hpf Ur Squamous Epith Cells 5-10 H (0-5) /hpf Amorphous Sediment Not Reportable Urine Bacteria 2+ H (NONE) /hpf Urine Mucus 1+ /hpf 11/03/20 Range/Units 11:06 WBC (4.0-10.0) 10^3/ uL RBC (4.1-5.3) 10^6/u L Hgb (11.5-15.3) g/dL Hct (37.0-47.0) % MCV (81-99) fL MCH (28.0-34.0) pg MCHC (30.0-36.0) g/dL RDW (12.1-15.1) % Plt Count (130-400) 10^3/c mm MPV (7.4-10.4) fL Neut % (Auto) % Lymph % (Auto) % Bradford % (Auto) % Eos % (Auto) % Baso % (Auto) % Neut # (Auto) (1.8-7.7) 10^3/u L Lymph # (Auto) (0.8-4.8) 10^3/u L Bradford # (Auto) (0.2-0.9) 10^3/u L Eos # (Auto) (0.0-0.8) 10^3/u L Baso # (Auto) (0.0-0.1) 10^3/u L Nucleated RBC % (a uto) % Nucleated RBCs # /100WBC Sodium (136-145) mmol/L Potassium (3.5-5.1) mmol/L Chloride (98-107) mmol/L Carbon Dioxide (22-29) mmol/L Anion Gap (5-19) BUN (8-23) mg/dL Creatinine (0.5-0.9) mg/dL GFR Calculation (90-130) mL/min Glucose (65-115) mg/dL Calculated Osmolal ity (285-295) mOsm/k g Calcium (8.5-10.5) mg/dL Total Bilirubin (0.15-1.2) mg/dL AST (0-32) U/L ALT (0-33) U/L Alkaline Phosphata se (35-105) IU/L Total Protein (6.6-8.7) g/dL Albumin (3.5-5.2) g/dL Globulin (1.3-4.6) g/dL Lipase (13-60) U/L Urine Color Straw (Yellow) Urine Appearance Sl hazy (CLEAR) Urine pH 5 (5-7) Ur Specific Gravit y 1.010 (1.005-1.030) Urine Protein Neg (Negative) Urine Glucose (UA) Norm (Normal) Urine Ketones Negative (Negative) Urine Blood 2+ H (Negative) Urine Nitrate Negative (Negative) Urine Bilirubin Neg (Negative) Urine Urobilinogen Norm (Negative) mg/dL Ur Leukocyte Enriqueta ase Negative (Negative) Urine RBC 0-4 H (0-2) /hpf Urine WBC 15-25 H (0-5) /hpf Ur Squamous Epith Cells Rare (0-5) /hpf Amorphous Sediment Not Reportable Urine Bacteria 1+ H (NONE) /hpf Urine Mucus /hpf Imaging Data ^: CT Abd/Pel: Radiologist's impression: [facility] [address] [place] [address] CT Scan Report Signed Patient: Radha Willis Unit #: [id number] : [id number] Age/Sex: 65 / F ADM Date: 11/03/20 Loc: ER Room/Bed: Attending Dr: Ordering Provider/Ordering MD: Yeimy Ghosh DO Date of Service: 11/03/20 Procedure(s): CT abdomen pelvis w con* [id number] Accession Number(s): [id number] Report Number: [id number] PROCEDURE INFORMATION: Exam: CT Abdomen And Pelvis With Contrast Exam date and time: 11/03/2020 9:20 AM Age: 65 years old Clinical indication: Abdominal pain TECHNIQUE: Imaging protocol: Computed tomography of the abdomen and pelvis with contrast. Radiation optimization: All CT scans at this facility use at least one of these dose optimization techniques: automated exposure control; mA and/or kV adjustment per patient size (includes targeted exams where dose is matched to clinical indication); or iterative reconstruction. Contrast material: OMNI 300; Contrast volume: 95 ml; Contrast route: INTRAVENOUS (IV); COMPARISON: CR XR hip LT 2-3V wo/w pel* [id number] 11/20/2019 6:47 AM RADIATION DOSE METRICS: Total DLP (mGy-cm): 1804.42 FINDINGS: Liver: Normal. No mass. Gallbladder and bile ducts: Normal. No calcified stones. No ductal dilation. Pancreas: Normal. No ductal dilation. Spleen: Normal. No splenomegaly. Adrenal glands: Normal. No mass. Kidneys and ureters: Normal. No hydronephrosis. Stomach and bowel: 3.1 x 2.4 x 1.7 cm epiploic appendagitis anterior to the mid descending colon. Mild bowel wall thickening in the mid descending colon at the same level which could represent coexisting mild infectious colitis. Mild diverticulosis in the left colon without definite diverticulitis. Appendix: Normal appendix. Intraperitoneal space: Unremarkable. No free air. No significant fluid collection. Vasculature: IVC filter. Lymph nodes: Unremarkable. No enlarged lymph nodes. Urinary bladder: Unremarkable as visualized. Reproductive: Unremarkable as visualized. Bones/joints: Unremarkable. No acute fracture. Soft tissues: Unremarkable. CT/CT abdomen pelvis w con* [id number] IMPRESSION: 1. 3.1 x 2.4 x 1.7 cm epiploic appendagitis anterior to the mid descending colon. 2. Mild bowel wall thickening in the mid descending colon at the same level which could represent coexisting mild infectious colitis. 3. Mild diverticulosis in the left colon without definite diverticulitis. COMMENTS: For patients with an IVC filter, recommend assessment for a management plan for the patient's IVC filter. If there is no established management plan, recommend referral to an interventional clinician on a nonemergent basis for evaluation. Radiation Dose CTDIVOL = (mGy): DLP = 1804.42 (mGy-cm) Dictated By: Vinay Ponce MD Signed By: Vinay Ponce MD Signed Date/Time: 11/03/201130 DD/ 1131 Discharge Plan Discharge Patient Disposition: Home Clinical Impression: Epiploic appendagitis, Acute UTI, Colitis Condition: Stable Prescriptions: New hydrocodone-acetaminophen 5-325 mg tablet 1 tab PO Q8H PRN (Reason: pain) Qty: 14 RF: 0 ciprofloxacin HCl [Cipro] 500 mg tablet 500 mg PO BID Qty: 20 RF: 0 metronidazole [Flagyl] 500 mg tablet 500 mg PO TID 10 Days Qty: 30 RF: 0 promethazine 25 mg tablet 25 mg PO Q4H PRN (Reason: nausea and vomiting) Qty: 20 RF: 0 No Action potassium chloride 10 mEq capsule, extended release 20 meq PO DAILY PRN (Reason: TAKES WITH LASIX) RF: 0 tizanidine 4 mg capsule 4 mg PO Q8H PRN (Reason: Pain) RF: 0 furosemide [Lasix] 20 mg tablet 40 mg PO QAM PRN (Reason: Edema) RF: 0 pioglitazone 30 mg tablet 30 mg PO QAM RF: 0 albuterol sulfate 90 mcg/actuation HFA aerosol inhaler 2 puff INHALATION Q6H PRN (Reason: Shortness Of Breath) RF: 0 pramipexole 0.5 mg tablet See Rx Instructions .ROUTE .COMPLEX RF: 0 diclofenac sodium [Voltaren] 1 % gel 2 - 4 gm TOPICAL QID PRN (Reason: Pain) RF: 0 (DME) pen needle, diabetic [Comfort EZ Pen [place]] 32 gauge x 1/4 needle See Rx Instructions .ROUTE .MEDSUPPLY Qty: 50 RF: 0 (DME) supinator to the right ankle See Rx Instructions .Route .MEDSUPPLY Qty: 1 RF: 0 (DME) accomadative orthotic See Rx Instructions .Route .MEDSUPPLY Qty: 1 RF: 0 montelukast 10 mg tablet 10 mg PO QPM 30 Days Qty: 30 RF: 2 (DME) Blood Glucose Test Strip See Rx Instructions .ROUTE .MEDSUPPLY Qty: 100 RF: 2 (DME) OneTouch Verio test strips Strip See Rx Instructions .ROUTE .MEDSUPPLY Qty: 50 RF: 12 glimepiride 4 mg Tablet 4 mg PO QAM RF: 0 nitroglycerin 0.4 mg Tablet, Sublingual 0.4 mg SUBLINGUAL Q5M PRN (Reason: Chest Pain) RF: 0 gabapentin 300 mg Capsule 300 mg PO BID@08,17 RF: 0 Euthyrox 25 mcg tablet 25 mcg PO QAM RF: 0 losartan 25 mg tablet 25 mg PO QPM RF: 0 levothyroxine 200 mcg tablet 200 mcg PO QAM RF: 0 Arnuity Ellipta 100 mcg/actuation Blister With Device 1 inh INHALATION DAILY PRN (Reason: UNKNOWN) RF: 0 Zyrtec 10 mg tablet 10 mg PO BID RF: 0 pantoprazole 40 mg tablet,delayed release (DR/EC) 40 mg PO QPM RF: 0 Victoza 2-Carlton 0.6 mg/0.1 mL (18 mg/3 mL) pen injector 1.8 mg SUBCUT DAILY RF: 0 Spiriva Respimat 1.25 mcg/actuation mist 2 puff inhalation DAILY PRN (Reason: UNKNOWN) RF: 0 Discharge Orders: Discharge ED (Routine); Ordered 11/03/20 Ordered By: Yeimy Ghosh Referrals: Natalya Rivero MD [Primary Care Provider] - Discharge Diet: Full LIquid Discharge Activity: Limit activity as instructed Patient Instructions: Infectious Colitis (ED), Opioid Safety Activity Restrictions/Additional Instructions: Please return to the ER immediately for any of the signs or symptoms listed on your discharge instruction sheets, worsening/changing of your symptoms, you are not getting better as quickly as expected, or for ANY other cause or concerns. Continue your liquid diet until advised further by your surgeon Dr. Sorenson. Call for an appointment to be seen by him in the next 1 to 2 days. If your abdominal pain worsens, you develop a fever, began to vomit, you have blood in your stools, or you have any worsening of your symptoms at all please return to the ER immediately for recheck. Do not take your tizanidine while you are taking the antibiotic ciprofloxacin that I have prescribed you. 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
[2020-11-03] MEDS: sodium chloride 0.9% 1,000 ML 999 ML IV (09:33)
[2020-11-03] MEDS: ondansetron 2 mg/ML SDV 2 mL 4 MG IVP (09:35)
[2020-11-03 09:36] VITALS: RESP 18
[2020-11-03] MEDS: HYDROmorphone 1 mg/mL INJ 1 mL 0.5 MG IVP (09:36)
[2020-11-03 09:40] LABS: Basophils # 0.1 10^3/uL (0.0-0.1); Basophils % 0.6 %; Eosinophils # 0.2 10^3/uL (0.0-0.8); Eosinophils % 1.5 %; Hematocrit 42.4 % (37.0-47.0); Hemoglobin 13.5 g/dL (11.5-15.3); Lymphocytes # 1.8 10^3/uL (0.8-4.8); Lymphocytes % 16.9 %; Mean Corpuscular HGB Conc 31.8 g/dL (30.0-36.0); Mean Corpuscular Hemoglobin 30.3 pg (28.0-34.0); Mean Corpuscular Volume 95.3 fL (81-99); Mean Platelet Volume 9.9 fL (7.4-10.4); Monocytes % 9.1 %; Neutrophils # 7.54 10^3/uL (1.8-7.7); Nucleated Red Blood Cells % 0 %; Platelet Count 286 10^3/cmm (130-400); Red Blood Count 4.45 10^6/uL (4.1-5.3); Red Cell Distribution Width 13.8 % (12.1-15.1); White Blood Count 10.6 10^3/uL (4.0-10.0)
[2020-11-03 09:53] LABS: Add Urine Microscopic? YES; Bilirubin Urine Neg (Negative); Blood Urine 2+ (Negative); Glucose Urine UA Norm (Normal); Ketones Urine Negative (Negative); Leukocyte Esterase Urine 2+ (Negative); Nitrate Urine Negative (Negative); Protein Urine Neg (Negative); Urine Appearance Cloudy (CLEAR); Urine Color Straw (Yellow); Urobilinogen Urine Norm (Negative); pH Urine 5 (5-7)
[2020-11-03 09:54] LABS: RBC Urine 40-50 /hpf (0-2); WBC Urine TOO NUMEROUS TO CNT /hpf (0-5)
[2020-11-03 09:55] LABS: Add Urine Culture? Yes; Bacteria Urine 2+ /hpf; Mucus Urine 1+ /hpf
[2020-11-03 10:00] LABS: Alanine Aminotransferase 24 U/L (0-33); Albumin Level 4.1 g/dL (3.5-5.2); Alkaline Phosphatase 73 IU/L (35-105); Aspartate Amino Transferase 27 U/L (0-32); Blood Urea Nitrogen 17 mg/dL (8-23); Carbon Dioxide 26 mmol/L (22-29); Chloride 101 mmol/L (98-107); Glomerular Filtration Rate 83.5 mL/min (90-130); Glucose 136 mg/dL (65-115); Lipase 24 U/L (13-60); Osmolality Calculated 292 mOsm/kg (285-295); Sodium 139 mmol/L (136-145); Total Bilirubin 0.4 mg/dL (0.15-1.2); Total Protein 7.1 g/dL (6.6-8.7)
--- NOTE | 2020-11-03 10:22 | PC.PHAR ---
PT STATES SHE TAKES CARE OF HER OWN MEDICATIONS-PT STATES SHE HASNT HAD TO USE HER VICTOZA IN A WEEK-PT STATES SHE USES HER SPIRIVA RESPIMAT AND ARNUITY INHALER PRN-PT STATES SHE CANT TAKE CRESTOR FILLED ON 09/12/20 90D/S-PT STATES SHE HAS BEEN OFF OF ASPIRIN SINCE August-PT STATES SHE ONLY TAKES LASIX AND KCL PRN-PT STATES SHE ONLY TAKES GABAPENTIN BID FILLED TID-PT STATES DR CLIFTON WHEELER DCED HER METOPROLOL ER AND ASPIRIN-NOTES ARE MADE ON RXS
[2020-11-03] MEDS: iohexol 300 mg/mL 100 mL Btl IV (10:43)
[2020-11-03 11:39] LABS: Bacteria Urine 1+ /hpf; Bilirubin Urine Neg (Negative); Blood Urine 2+ (Negative); Glucose Urine UA Norm (Normal); Ketones Urine Negative (Negative); Leukocyte Esterase Urine Negative (Negative); Nitrate Urine Negative (Negative); Protein Urine Neg (Negative); RBC Urine 0-4 /hpf (0-2); Squamous Epithelial Cell Urine RARE /hpf (0-5); Urine Appearance SL Hazy (CLEAR); Urine Color Straw (Yellow); Urobilinogen Urine Norm (Negative); WBC Urine 15-25 /hpf (0-5); pH Urine 5 (5-7)
[2020-11-03 11:40] LABS: Add Urine Culture? Yes
[2020-11-03] MEDS: ciprofloxacin 400 MG/200 ML PREMIX 200 MG IV (12:08)
[2020-11-03 12:27] VITALS: BP 151/68; PULSE 97; RESP 18; O2SAT 94
[2020-11-03] MEDS: metroNIDAZOLE IV 500 MG/100 ML PREMIX 100 MG IV (13:42)
[2020-11-03 13:51] VITALS: RESP 19
[2020-11-03] MEDS: morphine 4 mg/mL SDV 1 mL IVP (13:51)
[2020-11-03 14:40] VITALS: BP 132/58; PULSE 84; RESP 18; TEMP 36.4; O2SAT 97
== END 2020-11-03 15:01 | disposition home or self-care (01) ==
PROVIDERS: Emergency Provider Emergency Medicine; PCP Internal Medicine
DX: K63.89 Other specified diseases of intestine (principal); N39.0 Urinary tract infection, site not specified; K52.9 Noninfective gastroenteritis and colitis, unspecified; E11.9 Type 2 diabetes mellitus without complications; Z77.22 Contact with and (suspected) exposure to environmental tobacco smoke (acute) (chronic)
CPT/HCPCS: 74177; 80053; 81001; 83690; 85025; 87077; 87086; 87186; 96365; 96367; 96375; 99284; J0744; J1170; J2270; J2405; J7030; Q9967; S0030

== ENCOUNTER → 2020-11-24 10:29 | Outpatient (BNVA) | payer MEDICARE, SELFPAY | PROVIDERS: PCP Internal Medicine; Visit Provider Nurse Practitioner Family | DX: N30.00 Acute cystitis without hematuria (principal); B37.9 Candidiasis, unspecified | CPT/HCPCS: 81000 ==

== ENCOUNTER 2020-12-05 06:00 | Outpatient (RCR) | payer MEDICARE, SELFPAY | END 2020-12-25 23:59 | disposition home or self-care (01) | LOC: MPT 06:00 | PROVIDERS: PCP Internal Medicine; Referring Provider Emergency Medicine; Visit Provider Emergency Medicine | DX: M54.30 Sciatica, unspecified side (principal) | CPT/HCPCS: 97140; 97161; 97530 ==

== ENCOUNTER → 2020-12-16 15:47 | Outpatient (BNVA) | payer MEDICARE, SELFPAY | PROVIDERS: PCP Family Medicine; Visit Provider Family Medicine | DX: R22.43 Localized swelling, mass and lump, lower limb, bilateral (principal); E03.9 Hypothyroidism, unspecified; E11.59 Type 2 diabetes mellitus with other circulatory complications; E11.9 Type 2 diabetes mellitus without complications; Z98.84 Bariatric surgery status | CPT/HCPCS: 80053; 83036; 84439; 84443; 84481; 85025 ==

== ENCOUNTER 2020-12-26 06:00 | Outpatient (RCR) | payer MEDICARE, SELFPAY | END 2021-01-25 23:59 | disposition home or self-care (01) | LOC: MPT 06:00 | PROVIDERS: PCP Family Medicine; Referring Provider Emergency Medicine; Visit Provider Emergency Medicine | DX: M54.30 Sciatica, unspecified side (principal); M54.5 Low back pain; M79.605 Pain in left leg; M79.604 Pain in right leg; N39.0 Urinary tract infection, site not specified | CPT/HCPCS: 81003; 87086; 97110; 97116; 97140; 97530 ==

== ENCOUNTER 2021-01-26 06:00 | Outpatient (RCR) | payer MEDICARE, SELFPAY | END 2021-02-25 23:59 | disposition home or self-care (01) | LOC: MPT 06:00 | PROVIDERS: PCP Family Medicine; Referring Provider Emergency Medicine; Visit Provider Emergency Medicine | DX: M54.30 Sciatica, unspecified side (principal) | CPT/HCPCS: 97110; 97116; 97140 ==

== ENCOUNTER → 2021-02-05 13:37 | Outpatient (BNVA) | payer MEDICARE, SELFPAY | PROVIDERS: PCP Family Medicine; Visit Provider Urology | DX: N39.0 Urinary tract infection, site not specified (principal); B37.3 Candidiasis of vulva and vagina | CPT/HCPCS: 81003 ==

== ENCOUNTER 2021-02-26 06:00 | Outpatient (RCR) | payer MEDICARE, SELFPAY | END 2021-03-27 23:59 | disposition home or self-care (01) | LOC: MPT 06:00 | PROVIDERS: PCP Family Medicine; Referring Provider Emergency Medicine; Visit Provider Emergency Medicine | DX: M54.30 Sciatica, unspecified side (principal) | CPT/HCPCS: 97110 ==

== ENCOUNTER → 2021-03-06 11:30 | Outpatient (BNVA) | payer MEDICARE, SELFPAY | PROVIDERS: PCP Family Medicine; Visit Provider Family Medicine | DX: E03.9 Hypothyroidism, unspecified (principal); E11.59 Type 2 diabetes mellitus with other circulatory complications; I10 Essential (primary) hypertension; M51.36 Other intervertebral disc degeneration, lumbar region; N39.0 Urinary tract infection, site not specified; E66.01 Morbid (severe) obesity due to excess calories; L65.9 Nonscarring hair loss, unspecified; Z98.890 Other specified postprocedural states | CPT/HCPCS: 80053; 82607; 83036; 84439; 84443; 84481 ==

== ENCOUNTER 2021-04-01 20:35 | Emergency (ER) | payer MEDICARE, SELFPAY ==
[2021-04-01 20:50] VITALS: BP 119/68; PULSE 75; RESP 20; TEMP 36.7; O2SAT 95; BMI 35.2
--- NOTE | 2021-04-01 20:51 | CTR_ITS ---
PROCEDURE INFORMATION: Exam: CT Cervical Spine Without Contrast Exam date and time: 04/01/2021 8:51 PM Age: 66 years old Clinical indication: Injury or trauma; Blunt trauma; Patient HX: Fall at home. C/O neck pain. TECHNIQUE: Imaging protocol: Computed tomography images of the cervical spine without contrast. Radiation optimization: All CT scans at this facility use at least one of these dose optimization techniques: automated exposure control; mA and/or kV adjustment per patient size (includes targeted exams where dose is matched to clinical indication); or iterative reconstruction. COMPARISON: CT head wo con* [id number] 04/01/2021 9:05 PM RADIATION DOSE METRICS: Total DLP (mGy-cm): 327.16 FINDINGS: Bones/joints: Mild to moderate multilevel spine degenerative changes including degenerative disc disease, spondylosis and facet degenerative changes. Mild kyphosis which may be secondary to patient positioning and/or muscle spasm and/or multilevel degenerative change. Discs/Spinal canal/Neural foramina: No significant disc protrusion. No severe spinal canal stenosis. No significant neural foraminal narrowing. Lungs: Lung apices are normal. Soft tissues: Exam limitation secondary to artifact from one or more metallic earrings. CT/CT cervical spin wo con* [id number] IMPRESSION: No acute C-spine findings. Radiation Dose CTDIVOL = (mGy): DLP = 327.16 (mGy-cm)
--- NOTE | 2021-04-01 20:51 | CTR_ITS ---
PROCEDURE INFORMATION: Exam: CT Head Without Contrast Exam date and time: 04/01/2021 8:51 PM Age: 66 years old Clinical indication: Injury or trauma; Blunt trauma (contusions or hematomas); Injury details: Fall x travel pta. Hit chin on hardwood floor. Headache and neck pain TECHNIQUE: Imaging protocol: Computed tomography of the head without contrast. Radiation optimization: All CT scans at this facility use at least one of these dose optimization techniques: automated exposure control; mA and/or kV adjustment per patient size (includes targeted exams where dose is matched to clinical indication); or iterative reconstruction. COMPARISON: No relevant prior studies available. RADIATION DOSE METRICS: Total DLP (mGy-cm): 835.28 FINDINGS: Brain: Normal. No hemorrhage. Unremarkable white matter. No mass effect. Cerebral ventricles: No ventriculomegaly. Paranasal sinuses: Visualized sinuses are unremarkable. No fluid levels. Mastoid air cells: Visualized mastoid air cells are well aerated. Bones/joints: Unremarkable. No acute fracture. Soft tissues: Unremarkable. CT/CT head wo con* [id number] IMPRESSION: No acute intracranial abnormality. Radiation Dose CTDIVOL = (mGy): DLP = 835.28 (mGy-cm)
--- NOTE | 2021-04-01 20:51 | ED_ITS ---
HPI - Fall General: Chief Complaint: Fall Stated Complaint: NECK/BACK PAIN/FALL Time Seen by Provider: 04/01/21 20:51 History of Present Illness: HPI Narrative: Ms. Gracia is a 66-year-old lady with history of hypertension, hyperlipidemia, diabetes, and chronic knee pain s/p bilateral knee replacements who presents emergency department due to fall. She reports over the past few weeks she has had a lot of social stressors and has been very tired. She just had a trip to [place] and was sitting on edge of a chair when she fell asleep. She fell forward striking her face and landing on her bilateral knees. She immediately had pain primarily in the back of her neck and bilateral knees. She did not ambulate after this fall. Pain is moderate to severe in intensity and worse in the back of her neck. She does endorse right shoulder pain as well and mild sensory changes in this extremity. No other specific exacerbating relieving factors, changes in health, or any other new symptoms reported. Review of Systems General: Reports: 10 or more systems reviewed and unremarkable except in HPI and below PFSH ED PFSH: Medical History Arthritis of both knees Chronic knee pain after total replacement of both knee joints Diabetes mellitus Encounter for health education History of revision of total replacement of left knee joint (~2017) Hypersensitivity reaction Hypertension Mechanical complication of prosthetic knee implant Morbid obesity Nickel allergy, current reaction Urinary tract infection Yeast vaginitis Surgical History History of bilateral knee replacement History of colonoscopy (~2017) History of esophagogastroduodenoscopy (EGD) (~2017) History of Gen fundoplication (~2010) History of total bilateral knee replacement S/P gastric bypass Social History Smoking and tobacco status: never smoked Alcohol intake: never Marital status: Current occupational status: retired History of recent travel: No Female Reproductive History: Spontaneous abortions: No Physical Exam Narrative: EXAM NARRATIVE: GENERAL/CONSTITUTIONAL - well-appearing. Discomfort due to pain. Eyes - PERRL, no conjunctival injection ENMT - Atraumatic external nose and ears. Moist mucous membranes. No obvious intraoral lesion requiring intervention. NECK -c-collar in place. trachea midline CARDIOVASCULAR - regular rate and rhythm. Peripheral pulses 2+ and equal RESPIRATORY -clear to auscultation bilaterally. No retractions or accessory muscle use. ABDOMEN/GI - Nontender/Nondistended. No tenderness to percussion or evidence of peritonitis MSK - Extremities without obvious deformity. Bilateral knees and left hip tenderness to palpation. Right shoulder tenderness palpation no midline T or L- spine tenderness. SKIN - Warm, Dry NEURO - alert and appropriately oriented. strength and sensation intact. Moves all extremities equally. PSYCH - Appropriate mood and affect Course ED course: - Patient was seen and evaluated by me at bedside - Patient placed on cardiac monitors, IV access obtained - Initial evaluation notable for discomfort due to pain -Analgesia given - Imaging notable for no acute bony abnormality. - Upon serial reexamination after treatment the patient was improved with analgesia - Based on patient history, evaluation, labs, and imaging as interpreted the most likely cause of the patient's condition is soft tissue injury secondary to fall without evidence of bony injury. No evidence of clinical exam of spinal cord injury related to fall with head strike. - The results of ED evaluation were discussed with the patient including prescriptions and/or symptomatic cares (if applicable) including appropriate and responsible use, followup plan, and return precautions. The patient verbalized understanding and felt safe for discharge. - Patient discharged in satisfactory condition. Vital Signs: Vital signs: Vital Signs Temperature 98.1 F 04/01/21 20:50 Pulse Rate 61 04/01/21 23:31 Respiratory Rate 15 04/01/21 23:31 Blood Pressure 133/59 04/01/21 23:31 Pulse Oximetry 95 04/01/21 23:31 MDM - Fall Medical Records: Attestation: I reviewed the patient's medical records. Lab Data: Attestation: I reviewed the patient's lab results. Discharge Plan Discharge Patient Disposition: Home Clinical Impression: Neck pain, Acute shoulder pain, Chronic hip pain, Chronic knee pain Fall Qualifiers: Encounter type: subsequent encounter Qualified Code(s): W19.XXXD - Unspecified fall, subsequent encounter Condition: Stable Prescriptions: New oxycodone 5 mg tablet 2.5 mg PO Q6H PRN (Reason: pain) Qty: 8 RF: 0 No Action albuterol sulfate 90 mcg/actuation HFA aerosol inhaler 2 puff INHALATION Q6H PRN (Reason: Shortness Of Breath) RF: 0 (DME) supinator to the right ankle See Rx Instructions .Route .MEDSUPPLY Qty: 1 RF: 0 (DME) accomadative orthotic See Rx Instructions .Route .MEDSUPPLY Qty: 1 RF: 0 biotin 1 mg tablet 1 mg PO TID RF: 0 Maximum Daily Multivitamin 18-0.4 mg tablet PO DAILY RF: 0 mecobalamin (vitamin B12) 5,000 mcg tablet,disintegrating PO DAILY RF: 0 amoxicillin-pot clavulanate 875-125 mg tablet 1 tab PO BID Qty: 30 RF: 2 fluconazole 150 mg tablet 150 mg PO Q3D Qty: 2 RF: 2 metoprolol tartrate 25 mg tablet 25 mg PO DAILY 90 Days Qty: 90 RF: 1 losartan 25 mg tablet 12.5 mg PO QPM 90 Days Qty: 45 RF: 1 levothyroxine 200 mcg tablet 200 mcg PO QAM 90 Days Qty: 90 RF: 1 Euthyrox 25 mcg tablet 25 mcg PO QAM 90 Days Qty: 90 RF: 1 Hold Instructions: Doctor's Order pantoprazole 40 mg tablet,delayed release (DR/EC) 40 mg PO QPM 90 Days Qty: 90 RF: 0 potassium chloride 10 mEq capsule, extended release 20 meq PO DAILY Qty: 60 RF: 2 furosemide 20 mg tablet 40 mg PO DAILY PRN (Reason: edema) Qty: 60 RF: 5 montelukast 10 mg tablet 10 mg PO QPM 30 Days Qty: 30 RF: 2 pramipexole 0.5 mg tablet See Rx Instructions .ROUTE .COMPLEX 30 Days Qty: 120 RF: 2 tizanidine 4 mg tablet 4 mg PO Q8H PRN (Reason: muscle spasticity) Qty: 90 RF: 2 nitroglycerin 0.4 mg Tablet, Sublingual 0.4 mg SUBLINGUAL Q5M PRN (Reason: Chest Pain) RF: 0 gabapentin 300 mg Capsule 300 mg PO BID@,17 RF: 0 Discharge Orders: Discharge ED (Routine); Ordered 04/01/21 Ordered By: Sammy Torrez Referrals: Re Nathan MD [Primary Care Provider] - Discharge Diet: Usual diet Discharge Activity: Increase activity as tolerated Patient Instructions: Contusion in Adults (ED), Fall Prevention (ED), Acute Neck Pain (ED), Opioid Safety Activity Restrictions/Additional Instructions: Thank you for visiting the emergency department. You were seen and evaluated for a fall. There were no fractures identified on imaging. You do have likely bruising of the lung and other soft tissues. In addition to Tylenol you will be given a prescription for oxycodone, please use this extremely cautiously as it can cause sedation. It can also cause constipation so we recommend taking it with a stool softener. Please follow-up with your primary care provider. Please return the emergency department for worsening pain, uncontrolled pain, numbness, tingling, weakness, or anything else that you are concerned about and feel needs emergency department evaluation. Coding Level of Care Code ED Risk Assessment Consultant for Bernie Colvin
--- NOTE | 2021-04-01 21:23 | XRR_ITS ---
PROCEDURE INFORMATION: Exam: XR Right Shoulder Exam date and time: 04/01/2021 9:23 PM Age: 66 years old Clinical indication: Injury or trauma; Fall; Blunt trauma (contusions or hematomas); Shoulder; Right; Additional info: Fall, pain TECHNIQUE: Imaging protocol: XR Right shoulder. Views: 2 or more views. COMPARISON: CR XR chest 2V* [id number] 06/17/2020 12:55 PM FINDINGS: Bones/joints: Normal. Soft tissues: Normal. XR/XR shoulder RT min 2V* [id number] IMPRESSION: No acute findings. Radiation Dose CTDIVOL = (mGy): DLP = (mGy-cm)
--- NOTE | 2021-04-01 21:23 | XRR_ITS ---
PROCEDURE INFORMATION: Exam: XR Chest Exam date and time: 04/01/2021 9:23 PM Age: 66 years old Clinical indication: Injury or trauma; Fall; Blunt trauma (contusions or hematomas); Additional info: Fall, pain TECHNIQUE: Imaging protocol: XR of the chest. Views: 1 view. COMPARISON: CR XR chest 2V* [id number] 06/17/2020 12:55 PM FINDINGS: Lungs: Interval appearance of [id number] left basilar atelectasis and/or infiltrate and/or effusion and or pulmonary contusion. Pleural spaces: Unremarkable. No pleural effusion. No pneumothorax. Heart/Mediastinum: Unremarkable. No cardiomegaly. Bones/joints: Unremarkable. XR/XR chest 1V portable [id number] IMPRESSION: Interval appearance of [id number] left basilar atelectasis and/or infiltrate and/or effusion and or pulmonary contusion. Radiation Dose CTDIVOL = (mGy): DLP = (mGy-cm)
--- NOTE | 2021-04-01 21:23 | XRR_ITS ---
PROCEDURE INFORMATION: Exam: XR Left Knee Exam date and time: 04/01/2021 9:23 PM Age: 66 years old Clinical indication: Injury or trauma; Fall; Blunt trauma; Knee; Left; Additional info: Fall, pain TECHNIQUE: Imaging protocol: XR Left knee. Views: 1 or 2 views. COMPARISON: No relevant prior studies available. FINDINGS: Bones/joints: Left total knee replacement. Soft tissues: Normal. XR/XR knee LT 1-2V [id number] IMPRESSION: Left total knee replacement. Radiation Dose CTDIVOL = (mGy): DLP = (mGy-cm)
--- NOTE | 2021-04-01 21:23 | XRR_ITS ---
PROCEDURE INFORMATION: Exam: XR Left Hip Exam date and time: 04/01/2021 9:23 PM Age: 66 years old Clinical indication: Injury or trauma; Fall; Blunt trauma (contusions or hematomas); Patient HX: Left hip pain; Additional info: Fall pain TECHNIQUE: Imaging protocol: XR Left hip. Views: 2 or 3 views hip with pelvis when performed. COMPARISON: CT abdomen pelvis w con* [id number] 11/03/2020 10:40 AM FINDINGS: Bones/joints: Metallic hardware over the distal femoral shaft possibly related to the total left knee replacement Soft tissues: Unremarkable. XR/XR hip LT 2-3V wo/w pel* [id number] IMPRESSION: 1. No acute findings. 2. If pain persists, CT may be helpful to rule out occult pathology if clinically indicated. Radiation Dose CTDIVOL = (mGy): DLP = (mGy-cm)
--- NOTE | 2021-04-01 21:23 | XRR_ITS ---
PROCEDURE INFORMATION: Exam: XR Right Knee Exam date and time: 04/01/2021 9:23 PM Age: 66 years old Clinical indication: Injury or trauma; Fall; Blunt trauma; Prior surgery; Patient HX: Right knee pain; Additional info: Fall. Pain TECHNIQUE: Imaging protocol: XR Right knee. Views: 1 or 2 views. COMPARISON: No relevant prior studies available. FINDINGS: Bones/joints: Right total knee replacement. Soft tissues: Normal. XR/XR knee RT 1-2V [id number] IMPRESSION: Right total knee replacement. Radiation Dose CTDIVOL = (mGy): DLP = (mGy-cm)
[2021-04-01 21:43] VITALS: BP 116/55; PULSE 98; RESP 24; O2SAT 98
[2021-04-01 23:31] VITALS: BP 133/59; PULSE 61; RESP 15; O2SAT 95
== END 2021-04-01 23:34 | disposition home or self-care (01) ==
PROVIDERS: Emergency Provider Emergency Medicine; PCP Family Medicine
DX: M54.2 Cervicalgia (principal); M25.511 Pain in right shoulder; G89.29 Other chronic pain; M25.562 Pain in left knee; M25.552 Pain in left hip; M25.561 Pain in right knee; E11.9 Type 2 diabetes mellitus without complications; Z96.652 Presence of left artificial knee joint; I10 Essential (primary) hypertension; Z96.651 Presence of right artificial knee joint
CPT/HCPCS: 70450; 71045; 72125; 73030; 73502; 73560; 99283

== ENCOUNTER 2021-04-14 06:00 | Outpatient (RCR) | payer MEDICARE, SELFPAY | END 2021-04-27 23:59 | disposition home or self-care (01) | LOC: MPT 06:00 | PROVIDERS: PCP Family Medicine; Referring Provider Family Medicine; Visit Provider Family Medicine | DX: M62.838 Other muscle spasm (principal); W19.XXXD Unspecified fall, subsequent encounter; M54.2 Cervicalgia | CPT/HCPCS: 97110; 97140; 97162 ==

== ENCOUNTER 2021-04-21 08:15 | Outpatient (CLI) | payer MEDICARE, SELFPAY | END 2021-04-21 08:16 | disposition home or self-care (01) | LOC: WOUND 08:16 | PROVIDERS: PCP Family Medicine; Visit Provider Nurse Practitioner Family | DX: E11.622 Type 2 diabetes mellitus with other skin ulcer (principal); L97.829 Non-pressure chronic ulcer of other part of left lower leg with unspecified severity | CPT/HCPCS: 11042; 87070; 87075; 87205; 99203; G0463 ==

== ENCOUNTER 2021-04-23 06:00 | Outpatient (RCR) | payer MEDICARE, SELFPAY | END 2021-04-27 23:59 | disposition home or self-care (01) | LOC: SPT 06:00 | PROVIDERS: PCP Family Medicine; Visit Provider Nurse Practitioner Family | DX: I87.2 Venous insufficiency (chronic) (peripheral) (principal); E11.622 Type 2 diabetes mellitus with other skin ulcer | CPT/HCPCS: 29581; 97140; 97161 ==

== ENCOUNTER 2021-04-28 06:00 | Outpatient (RCR) | payer MEDICARE, SELFPAY | END 2021-05-27 23:59 | disposition home or self-care (01) | LOC: MPT 06:00 | PROVIDERS: PCP Family Medicine; Visit Provider Family Medicine | DX: I87.2 Venous insufficiency (chronic) (peripheral) (principal); E11.622 Type 2 diabetes mellitus with other skin ulcer | CPT/HCPCS: 97110; 97116; 97140; G0283 ==

== ENCOUNTER 2021-05-08 08:58 | Outpatient (CLI) | payer MEDICARE, SELFPAY | END 2021-05-08 08:59 | disposition home or self-care (01) | LOC: WOUND 09:16 | PROVIDERS: PCP Family Medicine; Visit Provider Emergency Medicine | DX: G89.29 Other chronic pain (principal); M25.561 Pain in right knee; M25.562 Pain in left knee; M25.552 Pain in left hip; M54.50 Low back pain, unspecified; R10.30 Lower abdominal pain, unspecified; M62.838 Other muscle spasm; Z79.891 Long term (current) use of opiate analgesic; I87.2 Venous insufficiency (chronic) (peripheral); L97.822 Non-pressure chronic ulcer of other part of left lower leg with fat layer exposed; E11.9 Type 2 diabetes mellitus without complications | CPT/HCPCS: 11042; 99204 ==

== ENCOUNTER → 2021-05-14 09:49 | Outpatient (BNVA) | payer MEDICARE, SELFPAY | PROVIDERS: PCP Family Medicine; Visit Provider Nurse Practitioner Family | DX: S69.92XA Unspecified injury of left wrist, hand and finger(s), initial encounter (principal); W19.XXXA Unspecified fall, initial encounter | CPT/HCPCS: 73100; 73120 ==

== ENCOUNTER 2021-05-15 10:06 | Outpatient (CLI) | payer MEDICARE, SELFPAY | END 2021-05-15 10:07 | disposition home or self-care (01) | LOC: WOUND 10:07 | PROVIDERS: PCP Family Medicine; Visit Provider Nurse Practitioner Family | DX: Z09 Encounter for follow-up examination after completed treatment for conditions other than malignant neoplasm (principal) | CPT/HCPCS: G0463 ==

== ENCOUNTER 2021-05-28 06:00 | Outpatient (RCR) | payer MEDICARE, SELFPAY | END 2021-06-10 23:59 | disposition home or self-care (01) | LOC: MPT 06:00 | PROVIDERS: PCP Family Medicine; Visit Provider Family Medicine | DX: I87.2 Venous insufficiency (chronic) (peripheral) (principal); E11.622 Type 2 diabetes mellitus with other skin ulcer | CPT/HCPCS: 73630; 97140 ==

== ENCOUNTER 2021-06-11 10:20 | Outpatient (CLI) | payer MEDICARE, SELFPAY ==
--- NOTE | 2021-06-11 10:27 | USCV_ITS ---
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 Dr Uday Ramirez MD [facility] (Electronically Signed) Final Date: 11 June 2021 16:13 S
== END 2021-06-11 10:21 | disposition home or self-care (01) ==
LOC: RAD 10:22
PROVIDERS: PCP Family Medicine; Visit Provider Nurse Practitioner Family
DX: E11.622 Type 2 diabetes mellitus with other skin ulcer (principal)
CPT/HCPCS: 93923

== ENCOUNTER → 2021-10-14 14:49 | Outpatient (BNVA) | payer MEDICARE, SELFPAY | PROVIDERS: PCP Family Medicine; Visit Provider Family Medicine | DX: E11.59 Type 2 diabetes mellitus with other circulatory complications (principal); I10 Essential (primary) hypertension; E03.9 Hypothyroidism, unspecified; E11.9 Type 2 diabetes mellitus without complications; M25.561 Pain in right knee; M25.562 Pain in left knee; G89.29 Other chronic pain; Z96.653 Presence of artificial knee joint, bilateral | CPT/HCPCS: 80053; 83036; 84439; 84443; 84481 ==

== ENCOUNTER 2021-10-28 06:00 | Outpatient (RCR) | payer MEDICARE, SELFPAY | END 2021-11-25 23:59 | disposition home or self-care (01) | LOC: MPT 06:00 | PROVIDERS: PCP Family Medicine; Referring Provider Family Medicine; Visit Provider Family Medicine | DX: Z47.1 Aftercare following joint replacement surgery (principal); Z96.653 Presence of artificial knee joint, bilateral; M25.561 Pain in right knee; M25.562 Pain in left knee; G89.29 Other chronic pain | CPT/HCPCS: 97110; 97140; 97162; G0283 ==

== ENCOUNTER 2021-11-13 02:10 | Emergency (ER) | payer MEDICARE, SELFPAY ==
[2021-11-13] VITALS (10 sets, daily range): BP systolic 121–159; BP diastolic 56–93; PULSE 60–71; RESP 14–20; TEMP 36.7; O2SAT 93–100; BMI 31.3
--- NOTE | 2021-11-13 02:16 | W.ED.ABDPA2 ---
Documented by User: Sammy Torrez MD 11/18/21 04:44 HPI - Abdominal Pain General: Chief Complaint: General Medical Stated Complaint: flank pain Time Seen by Provider: 11/13/21 02:16 History of Present Illness: Ms. Gracia is a 66-year-old lady with complex past medical history including hypertension, hyperlipidemia, peripheral vascular disease, diabetes, thyroid disorder, history of esophageal spasms presenting to the emergency department due to severe left back and flank pain. She reports pain at baseline health and reports no trauma over the past few days. She woke up from sleep just prior to coming to the emergency department with severe onset of symptoms associated with nausea and vomiting. Mild radiation from the spine over the left side however no radiation of the groin or other parts of the abdomen. No associated shortness of breath, chest pain, radiation to the chest. Emesis is nonbloody. Overall course of symptoms has persisted. Intensity is severe. Denies similar episodes in the past. No other specific changes in health, exacerbating, or alleviating factors identified. Onset (ago): minute(s) Pain Consistency: constant Location: L flank Quality: cramping and sharp Associated Symptoms: Reports nausea and vomiting; Denies constipation and diarrhea Review of Systems General: Reports: 10 or more systems reviewed and unremarkable except in HPI and below GI: Reports: nausea and vomiting; Denies: diarrhea or constipation PFSH ED PFSH: Medical History Arthritis of both knees Chronic knee pain after total replacement of both knee joints Diabetes mellitus Encounter for health education History of basal cell carcinoma History of revision of total replacement of left knee joint (~2017) Hypersensitivity reaction Hypertension Mechanical complication of prosthetic knee implant Morbid obesity Nickel allergy, current reaction Urinary tract infection Yeast vaginitis Surgical History History of bilateral knee replacement History of colonoscopy (~2017) History of esophagogastroduodenoscopy (EGD) (~2017) History of Gen fundoplication (~2010) History of total bilateral knee replacement S/P gastric bypass Social History Smoking and tobacco status: never smoked Alcohol intake: never Marital status: Current occupational status: retired History of recent travel: No Female Reproductive History: Spontaneous abortions: No Physical Exam Const: COMMON NORMALS: alert GENERAL APPEARANCE: cooperative, well developed and in distress (Pain) HENMT: COMMON NORMALS: normocephalic and atraumatic HEAD & SCALP: normocephalic and atraumatic THROAT: posterior oropharynx normal Eye: COMMON NORMALS: conjunctivae normal CONJUNCTIVA: Yes conjunctivae normal SCLERA: sclerae normal Neck/C-Spine: COMMON NORMALS: supple GENERAL: Yes trachea midline Resp: COMMON NORMALS: normal respiratory effort EFFORT & INSPECTION: Yes able to speak in complete sentences Cardio: COMMON NORMALS: regular rate and regular rhythm RATE: regular rate RHYTHM: regular rhythm GI: COMMON NORMALS: Soft to palpation PALPATION: Yes Soft to palpation, Yes Tenderness to palpation present (GI) (Mild tenderness to palpation of left back and flank), No Guarding due to palpation present (GI) and No Rigid due to palpation PERCUSSION: normal to percussion Extremity: GENERAL: Yes normal exam except as noted and No edema Neuro: COMMON NORMALS: moves all extremities SENSORIUM/ORIENTATION: Yes alert and No Orientation impaired Psych: COMMON NORMALS: mental status grossly normal and Normal thought process present THOUGHT PROCESS: Normal thought process present Course ED course: - Patient was seen and evaluated by me at bedside - Patient placed on cardiac monitors, IV access obtained - Initial evaluation notable for exam as above - Labs and xrays personally interpreted by me -Analgesia given - Labs notable for no leukocytosis, normal hemoglobin. Metabolic panel without acute derangement. Urinalysis with squamous epithelial contamination. - Given severity of patient's symptoms including repeat need for analgesia imaging ordered -Chest x-ray with no acute cardiopulmonary abnormality. 3 mm left UVJ stone. Gallbladder has an abnormal appearance on CT. Given this finding ultrasound ordered and pending at time of patient care handed - Patient care handed off to morning ED physician Dr. Burr pending completion of ED evaluation Vital Signs: Vital signs: Vital Signs Temperature 98.1 F 11/13/21 02:11 Pulse Rate 71 11/13/21 09:29 Respiratory Rate 16 11/13/21 08:04 Blood Pressure 125/65 11/13/21 09:29 Pulse Oximetry 95 11/13/21 09:29 MDM - Abdominal Pain Medical Records I reviewed the patient's medical records. Lab Data I reviewed the patient's lab results. : 11/13/21 02:17 11/13/21 02:17 Labs/Radiology: Radiology Impressions Abdomen/Pelvis CT 11/13/21 02:38 IMPRESSION: 1. Mild left hydroureteronephrosis secondary to a 3 mm calculus at the left ureterovesical junction. 2. There is a cluster of nonobstructing stones layering within a lower pole calyx measuring to 1.4 cm. 3. The gallbladder is mildly distended with suggestion of subtle mural thickening. There is also mild intra and extrahepatic biliary dilation. MRCP or ERCP could further evaluate for choledocholithiasis as clinically warranted. Chest X-Ray 11/13/21 02:38 IMPRESSION: No acute cardiopulmonary abnormality. Abdomen Ultrasound 11/13/21 05:48 IMPRESSION: 1. Mildly hydropic gallbladder with sludge. 2. Dilated common bile duct to 1.2 cm. No choledocholithiasis or pancreatic head mass identified by ultrasound or the unenhanced CT performed earlier today. Consider follow-up MRCP. 3. Cirrhotic liver. 4. Suspicious for very early mild central bile duct dilatation. Notified Dr. Burr at 11/13/2021 8:39 AM. Laboratory Results WBC 9.1 10^3/uL (4.0-10.0) 11/13/21 02:17 RBC 4.41 10^6/uL (4.1-5.3) 11/13/21 02:17 Hgb 13.2 g/dL (11.5-15.3) 11/13/21 02:17 Hct 41.4 % (37.0-47.0) 11/13/21 02:17 MCV 93.9 fl (81-99) 11/13/21 02:17 MCH 29.9 pg (28.0-34.0) 11/13/21 02:17 MCHC 31.9 g/dL (30.0-36.0) 11/13/21 02:17 RDW 13.8 % (12.1-15.1) 11/13/21 02:17 Plt Count 245 10^3/cmm (130-400) 11/13/21 02:17 MPV 10.4 fL (7.4-10.4) 11/13/21 02:17 Neut % (Auto) 60.2 % 11/13/21 02:17 Lymph % (Auto) 27.4 % 11/13/21 02:17 [place] % (Auto) 8.8 % 11/13/21 02:17 Eos % (Auto) 2.8 % 11/13/21 02:17 Baso % (Auto) 0.5 % 11/13/21 02:17 Neut # (Auto) 5.50 10^3/uL (1.8-7.7) 11/13/21 02:17 Lymph # (Auto) 2.5 10^3/uL (0.8-4.8) 11/13/21 02:17 [place] # (Auto) 0.8 10^3/uL (0.2-0.9) 11/13/21 02:17 Eos # (Auto) 0.3 10^3/uL (0.0-0.8) 11/13/21 02:17 Baso # (Auto) 0.1 10^3/uL (0.0-0.1) 11/13/21 02:17 Nucleated RBC % (auto) 0 % 11/13/21 02:17 Nucleated RBCs # 0.0 /100WBC 11/13/21 02:17 Sodium 142 mmol/L (136-145) 11/13/21 02:17 Potassium 4.1 mmol/L (3.5-5.1) 11/13/21 02:17 Chloride 105 mmol/L (98-107) 11/13/21 02:17 Carbon Dioxide 28 mmol/L (22-29) 11/13/21 02:17 Anion Gap 13.1 (5-19) 11/13/21 02:17 BUN 16 mg/dL (8-23) 11/13/21 02:17 Creatinine 0.6 mg/dL (0.5-0.9) 11/13/21 02:17 GFR Calculation 99.4 mL/min (90-130) 11/13/21 02:17 Glucose 128 mg/dL (65-115) H 11/13/21 02:17 Calculated Osmolality 297 mOsm/kg (285-295) H 11/13/21 02:17 Lactate 1.3 mmol/L (0.5-2.2) 11/13/21 02:26 Calcium 9.3 mg/dL (8.5-10.5) 11/13/21 02:17 Total Bilirubin 0.5 mg/dL (0.15-1.2) 11/13/21 02:17 AST 19 U/L (0-32) 11/13/21 02:17 ALT 17 U/L (0-33) 11/13/21 02:17 Alkaline Phosphatase 89 IU/L (35-105) 11/13/21 02:17 Total Protein 6.9 g/dL (6.6-8.7) 11/13/21 02:17 Albumin 4.3 g/dL (3.5-5.2) 11/13/21 02:17 Globulin 2.6 g/dL (1.3-4.6) 11/13/21 02:17 Lipase 11 U/L (13-60) L 11/13/21 02:17 Urine Color Yellow (Yellow) 11/13/21 02:50 Urine Appearance Clear (CLEAR) 11/13/21 02:50 Urine pH 6.5 (5-7) 11/13/21 02:50 Ur Specific [place] 1.015 (1.005-1.030) 11/13/21 02:50 Urine Protein Neg (Negative) 11/13/21 02:50 Urine Glucose (UA) Norm (Normal) 11/13/21 02:50 Urine Ketones 1+ (Negative) H 11/13/21 02:50 Urine Blood Neg (Negative) 11/13/21 02:50 Urine Nitrate Negative (Negative) 11/13/21 02:50 Urine Bilirubin Neg (Negative) 11/13/21 02:50 Urine Urobilinogen 4 mg/dL (Negative) H 11/13/21 02:50 Ur Leukocyte Esterase 1+ (Negative) H 11/13/21 02:50 Urine RBC 0-4 /hpf (0-2) H 11/13/21 02:50 Urine WBC 5-10 /hpf (0-5) H 11/13/21 02:50 Ur Squamous Epith Cells 5-10 /hpf (0-5) H 11/13/21 02:50 Amorphous Sediment Not Reportable 11/13/21 02:50 Urine Bacteria Trace /hpf (NONE) 11/13/21 02:50 Urine Mucus Trace /hpf 11/13/21 02:50 Discharge Plan Discharge Patient Disposition: Home Clinical Impression: Nephrolithiasis, Common bile duct dilatation Condition: Stable Prescriptions: New Flomax 0.4 mg capsule 0.4 mg PO DAILY Qty: 20 0RF ondansetron HCl 4 mg tablet 4 mg PO Q6H PRN (Reason: nausea and vomiting) Qty: 20 0RF hydrocodone-acetaminophen 5-325 mg tablet 1 tab PO Q6H PRN (Reason: pain) Qty: 25 0RF No Action albuterol sulfate 90 mcg/actuation HFA aerosol inhaler 2 puff INHALATION Q6H PRN (Reason: Shortness Of Breath) 0RF (DME) supinator to the right ankle See Rx Instructions .Route .MEDSUPPLY Qty: 1 0RF Rx Instructions: As directed (DME) accomadative orthotic See Rx Instructions .Route .MEDSUPPLY Qty: 1 0RF Rx Instructions: As directed baclofen 10 mg tablet 20 mg PO QID MDD 8 tabs Qty: 30 1RF Rx Instructions: start 1 tab BID and may increase to max as needed mupirocin 2 % ointment 1 applic topical BID Qty: 22 0RF biotin 1 mg tablet 1 mg PO TID 0RF Maximum Daily Multivitamin 18-0.4 mg tablet PO DAILY 0RF mecobalamin (vitamin B12) 5,000 mcg tablet,disintegrating PO DAILY 0RF fluconazole 150 mg tablet 150 mg PO Q3D Qty: 2 2RF losartan 25 mg tablet 12.5 mg PO QPM 90 Days Qty: 45 1RF Rx Instructions: dose change mupirocin 2 % ointment 1 applic topical BID 14 Days Qty: 22 0RF cephalexin 500 mg capsule 500 mg PO BID 7 Days Qty: 14 0RF mupirocin 2 % ointment 1 applic topical BID Qty: 22 0RF potassium chloride 10 mEq capsule, extended release 20 meq PO DAILY Qty: 60 2RF Rx Instructions: Use with water pill as needed furosemide 20 mg tablet 40 mg PO DAILY PRN (Reason: edema) Qty: 60 5RF tizanidine 4 mg tablet 4 mg PO Q8H PRN (Reason: muscle spasticity) Qty: 90 2RF Rx Instructions: 340B pantoprazole 40 mg tablet,delayed release (DR/EC) 40 mg PO QPM 90 Days Qty: 90 0RF pramipexole 0.5 mg tablet See Rx Instructions .ROUTE .COMPLEX 30 Days Qty: 120 0RF Rx Instructions: 2 TABS IN THE AM AND 2 TABS QPM montelukast 10 mg tablet 10 mg PO QPM 30 Days Qty: 30 0RF Hold Instructions: Home Medication placed on hold at Doctor's office metoprolol tartrate 25 mg tablet 25 mg PO DAILY 90 Days Qty: 30 0RF Hold Instructions: Home Medication placed on hold at Doctor's office mupirocin 2 % ointment 1 applic topical BID 10 Days Qty: 22 2RF Rx Instructions: apply to lesion on nose levothyroxine 175 mcg tablet 175 mcg PO QAM 90 Days Qty: 90 0RF nitroglycerin 0.4 mg Tablet, Sublingual 0.4 mg SUBLINGUAL Q5M PRN (Reason: Chest Pain) 0RF gabapentin 300 mg Capsule 300 mg PO BID@08,17 0RF oxycodone 5 mg tablet 2.5 mg PO Q6H PRN (Reason: pain) Qty: 8 0RF Rx Instructions: 1/2 to 1 tab every 6 hr as needed for severe pain Discharge Orders: Discharge ED (Routine); Ordered 11/13/21 Ordered By: Kvng Burr Referrals: Re Nathan MD [Primary Care Provider] - Patient Instructions: Opioid Safety Activity Restrictions/Additional Instructions: Case management will call with appointment for urology for follow-up. Sign Out Sign Out Data: Patient Sign Out occurred on 11/13/21 at 06:15. Patient's care was discussed, and care was transferred from to Kvng Burr DO. Coding Level of Care Code ED Grinder Setup Operator for Chg Fwd Exam Comprehensive Documented by User: Kvng Burr DO 11/13/21 08:58 HPI - Abdominal Pain General: Chief Complaint: General Medical Stated Complaint: flank pain Time Seen by Provider: 11/13/21 02:16 PFSH ED PFSH: Medical History Arthritis of both knees Chronic knee pain after total replacement of both knee joints Diabetes mellitus Encounter for health education History of basal cell carcinoma History of revision of total replacement of left knee joint (~2018) Hypersensitivity reaction Hypertension Mechanical complication of prosthetic knee implant Morbid obesity Nickel allergy, current reaction Urinary tract infection Yeast vaginitis Surgical History History of bilateral knee replacement History of colonoscopy (~2017) History of esophagogastroduodenoscopy (EGD) (~2017) History of Gen fundoplication (~2010) History of total bilateral knee replacement S/P gastric bypass Social History Smoking and tobacco status: never smoked Alcohol intake: never Marital status: Current occupational status: retired History of recent travel: No Course Vital Signs: Vital signs: Vital Signs Temperature 98.1 F 11/13/21 02:11 Pulse Rate 71 11/13/21 09:29 Respiratory Rate 16 11/13/21 08:04 Blood Pressure 125/65 11/13/21 09:29 Pulse Oximetry 95 11/13/21 09:29 MDM - Abdominal Pain Medical Decision Making 3 mm distal ureteral stone. Strain urine start Flomax pain medications as needed as long well as antiemetics. If pain is uncontrollable return to the emergency room. Discussed with patient and family member that patient will need follow-up on dilated common bile duct through her primary caregiver. Liver enzymes are normal at this time but should have repeat ultrasound and/or ERCP in the future. Lab Data : 11/13/21 02:17 11/13/21 02:17 Labs/Radiology: Radiology Impressions Abdomen/Pelvis CT 11/13/21 02:38 IMPRESSION: 1. Mild left hydroureteronephrosis secondary to a 3 mm calculus at the left ureterovesical junction. 2. There is a cluster of nonobstructing stones layering within a lower pole calyx measuring to 1.4 cm. 3. The gallbladder is mildly distended with suggestion of subtle mural thickening. There is also mild intra and extrahepatic biliary dilation. MRCP or ERCP could further evaluate for choledocholithiasis as clinically warranted. Chest X-Ray 11/13/21 02:38 IMPRESSION: No acute cardiopulmonary abnormality. Abdomen Ultrasound 11/13/21 05:48 IMPRESSION: 1. Mildly hydropic gallbladder with sludge. 2. Dilated common bile duct to 1.2 cm. No choledocholithiasis or pancreatic head mass identified by ultrasound or the unenhanced CT performed earlier today. Consider follow-up MRCP. 3. Cirrhotic liver. 4. Suspicious for very early mild central bile duct dilatation. Notified Dr. Burr at 11/13/2021 8:39 AM. Laboratory Results WBC 9.1 10^3/uL (4.0-10.0) 11/13/21 02:17 RBC 4.41 10^6/uL (4.1-5.3) 11/13/21 02:17 Hgb 13.2 g/dL (11.5-15.3) 11/13/21 02:17 Hct 41.4 % (37.0-47.0) 11/13/21 02:17 MCV 93.9 fl (81-99) 11/13/21 02:17 MCH 29.9 pg (28.0-34.0) 11/13/21 02:17 MCHC 31.9 g/dL (30.0-36.0) 11/13/21 02:17 RDW 13.8 % (12.1-15.1) 11/13/21 02:17 Plt Count 245 10^3/cmm (130-400) 11/13/21 02:17 MPV 10.4 fL (7.4-10.4) 11/13/21 02:17 Neut % (Auto) 60.2 % 11/13/21 02:17 Lymph % (Auto) 27.4 % 11/13/21 02:17 [place] % (Auto) 8.8 % 11/13/21 02:17 Eos % (Auto) 2.8 % 11/13/21 02:17 Baso % (Auto) 0.5 % 11/13/21 02:17 Neut # (Auto) 5.50 10^3/uL (1.8-7.7) 11/13/21 02:17 Lymph # (Auto) 2.5 10^3/uL (0.8-4.8) 11/13/21 02:17 [place] # (Auto) 0.8 10^3/uL (0.2-0.9) 11/13/21 02:17 Eos # (Auto) 0.3 10^3/uL (0.0-0.8) 11/13/21 02:17 Baso # (Auto) 0.1 10^3/uL (0.0-0.1) 11/13/21 02:17 Nucleated RBC % (auto) 0 % 11/13/21 02:17 Nucleated RBCs # 0.0 /100WBC 11/13/21 02:17 Sodium 142 mmol/L (136-145) 11/13/21 02:17 Potassium 4.1 mmol/L (3.5-5.1) 11/13/21 02:17 Chloride 105 mmol/L (98-107) 11/13/21 02:17 Carbon Dioxide 28 mmol/L (22-29) 11/13/21 02:17 Anion Gap 13.1 (5-19) 11/13/21 02:17 BUN 16 mg/dL (8-23) 11/13/21 02:17 Creatinine 0.6 mg/dL (0.5-0.9) 11/13/21 02:17 GFR Calculation 99.4 mL/min (90-130) 11/13/21 02:17 Glucose 128 mg/dL (65-115) H 11/13/21 02:17 Calculated Osmolality 297 mOsm/kg (285-295) H 11/13/21 02:17 Lactate 1.3 mmol/L (0.5-2.2) 11/13/21 02:26 Calcium 9.3 mg/dL (8.5-10.5) 11/13/21 02:17 Total Bilirubin 0.5 mg/dL (0.15-1.2) 11/13/21 02:17 AST 19 U/L (0-32) 11/13/21 02:17 ALT 17 U/L (0-33) 11/13/21 02:17 Alkaline Phosphatase 89 IU/L (35-105) 11/13/21 02:17 Total Protein 6.9 g/dL (6.6-8.7) 11/13/21 02:17 Albumin 4.3 g/dL (3.5-5.2) 11/13/21 02:17 Globulin 2.6 g/dL (1.3-4.6) 11/13/21 02:17 Lipase 11 U/L (13-60) L 11/13/21 02:17 Urine Color Yellow (Yellow) 11/13/21 02:50 Urine Appearance Clear (CLEAR) 11/13/21 02:50 Urine pH 6.5 (5-7) 11/13/21 02:50 Ur Specific [place] 1.015 (1.005-1.030) 11/13/21 02:50 Urine Protein Neg (Negative) 11/13/21 02:50 Urine Glucose (UA) Norm (Normal) 11/13/21 02:50 Urine Ketones 1+ (Negative) H 11/13/21 02:50 Urine Blood Neg (Negative) 11/13/21 02:50 Urine Nitrate Negative (Negative) 11/13/21 02:50 Urine Bilirubin Neg (Negative) 11/13/21 02:50 Urine Urobilinogen 4 mg/dL (Negative) H 11/13/21 02:50 Ur Leukocyte Esterase 1+ (Negative) H 11/13/21 02:50 Urine RBC 0-4 /hpf (0-2) H 11/13/21 02:50 Urine WBC 5-10 /hpf (0-5) H 11/13/21 02:50 Ur Squamous Epith Cells 5-10 /hpf (0-5) H 11/13/21 02:50 Amorphous Sediment Not Reportable 11/13/21 02:50 Urine Bacteria Trace /hpf (NONE) 11/13/21 02:50 Urine Mucus Trace /hpf 11/13/21 02:50 Discharge Plan Discharge Patient Disposition: Home Clinical Impression: Nephrolithiasis, Common bile duct dilatation Condition: Stable Prescriptions: New Flomax 0.4 mg capsule 0.4 mg PO DAILY Qty: 20 0RF ondansetron HCl 4 mg tablet 4 mg PO Q6H PRN (Reason: nausea and vomiting) Qty: 20 0RF hydrocodone-acetaminophen 5-325 mg tablet 1 tab PO Q6H PRN (Reason: pain) Qty: 25 0RF No Action albuterol sulfate 90 mcg/actuation HFA aerosol inhaler 2 puff INHALATION Q6H PRN (Reason: Shortness Of Breath) 0RF (DME) supinator to the right ankle See Rx Instructions .Route .MEDSUPPLY Qty: 1 0RF Rx Instructions: As directed (DME) accomadative orthotic See Rx Instructions .Route .MEDSUPPLY Qty: 1 0RF Rx Instructions: As directed baclofen 10 mg tablet 20 mg PO QID MDD 8 tabs Qty: 30 1RF Rx Instructions: start 1 tab BID and may increase to max as needed mupirocin 2 % ointment 1 applic topical BID Qty: 22 0RF biotin 1 mg tablet 1 mg PO TID 0RF Maximum Daily Multivitamin 18-0.4 mg tablet PO DAILY 0RF mecobalamin (vitamin B12) 5,000 mcg tablet,disintegrating PO DAILY 0RF fluconazole 150 mg tablet 150 mg PO Q3D Qty: 2 2RF losartan 25 mg tablet 12.5 mg PO QPM 90 Days Qty: 45 1RF Rx Instructions: dose change mupirocin 2 % ointment 1 applic topical BID 14 Days Qty: 22 0RF cephalexin 500 mg capsule 500 mg PO BID 7 Days Qty: 14 0RF mupirocin 2 % ointment 1 applic topical BID Qty: 22 0RF potassium chloride 10 mEq capsule, extended release 20 meq PO DAILY Qty: 60 2RF Rx Instructions: Use with water pill as needed furosemide 20 mg tablet 40 mg PO DAILY PRN (Reason: edema) Qty: 60 5RF tizanidine 4 mg tablet 4 mg PO Q8H PRN (Reason: muscle spasticity) Qty: 90 2RF Rx Instructions: 340B pantoprazole 40 mg tablet,delayed release (DR/EC) 40 mg PO QPM 90 Days Qty: 90 0RF pramipexole 0.5 mg tablet See Rx Instructions .ROUTE .COMPLEX 30 Days Qty: 120 0RF Rx Instructions: 2 TABS IN THE AM AND 2 TABS QPM montelukast 10 mg tablet 10 mg PO QPM 30 Days Qty: 30 0RF Hold Instructions: Home Medication placed on hold at Doctor's office metoprolol tartrate 25 mg tablet 25 mg PO DAILY 90 Days Qty: 30 0RF Hold Instructions: Home Medication placed on hold at Doctor's office mupirocin 2 % ointment 1 applic topical BID 10 Days Qty: 22 2RF Rx Instructions: apply to lesion on nose levothyroxine 175 mcg tablet 175 mcg PO QAM 90 Days Qty: 90 0RF nitroglycerin 0.4 mg Tablet, Sublingual 0.4 mg SUBLINGUAL Q5M PRN (Reason: Chest Pain) 0RF gabapentin 300 mg Capsule 300 mg PO BID@08,17 0RF oxycodone 5 mg tablet 2.5 mg PO Q6H PRN (Reason: pain) Qty: 8 0RF Rx Instructions: 1/2 to 1 tab every 6 hr as needed for severe pain Discharge Orders: Discharge ED (Routine); Ordered 11/13/21 Ordered By: Kvng Burr Referrals: Re Nathan MD [Primary Care Provider] - Patient Instructions: Opioid Safety Activity Restrictions/Additional Instructions: Case management will call with appointment for urology for follow-up. Sign Out Sign Out Data: Patient Sign Out occurred on 11/13/21 at 06:15. Patient's care was discussed, and care was transferred from to Kvng Burr DO. Coding Level of Care Code ED Grinder Setup Operator for Kristineg Fwd Exam Comprehensive
[2021-11-13] MEDS: fentaNYL 50 mcg/mL INJ 2mL 75 MCG IVP (02:23)
[2021-11-13] MEDS: ondansetron 2 mg/ML SDV 2 mL 4 MG IVP ×2 (02:24→06:13)
[2021-11-13 02:25] LABS: Basophils # 0.1 10^3/uL (0.0-0.1); Basophils % 0.5 %; Eosinophils # 0.3 10^3/uL (0.0-0.8); Eosinophils % 2.8 %; Hematocrit 41.4 % (37.0-47.0); Hemoglobin 13.2 g/dL (11.5-15.3); Lymphocytes # 2.5 10^3/uL (0.8-4.8); Lymphocytes % 27.4 %; Mean Corpuscular HGB Conc 31.9 g/dL (30.0-36.0); Mean Corpuscular Hemoglobin 29.9 pg (28.0-34.0); Mean Corpuscular Volume 93.9 fl (81-99); Mean Platelet Volume 10.4 fL (7.4-10.4); Monocytes # 0.8 10^3/uL (0.2-0.9); Monocytes % 8.8 %; Neutrophils % 60.2 %; Nucleated Red Blood Cells % 0 %; Platelet Count 245 10^3/cmm (130-400); Red Blood Count 4.41 10^6/uL (4.1-5.3); Red Cell Distribution Width 13.8 % (12.1-15.1); White Blood Count 9.1 10^3/uL (4.0-10.0)
--- NOTE | 2021-11-13 02:38 | XRR_ITS ---
PROCEDURE INFORMATION: Exam: XR Chest Exam date and time: 11/13/2021 2:42 AM Age: 66 years old Clinical indication: Shortness of breath; Patient HX: SOB. Mild hypoxia on monitor. ; Additional info: Back pain, mid TECHNIQUE: Imaging protocol: XR of the chest. Views: 1 view. COMPARISON: CR (CHEST, ) 04/01/2021 10:02 PM FINDINGS: Lungs: No focal airspace disease. Pleural spaces: Unremarkable. No pleural effusion. No pneumothorax. Heart/Mediastinum: Cardiomediastinal silhouette is within normal limits. Bones/joints: Unremarkable. XR/XR chest 1V portable [id number] IMPRESSION: No acute cardiopulmonary abnormality.
--- NOTE | 2021-11-13 02:38 | CTR_ITS ---
PROCEDURE INFORMATION: Exam: CT Abdomen And Pelvis Without Contrast Exam date and time: 11/13/2021 3:09 AM Age: 66 years old Clinical indication: Abdominal pain; Prior surgery; Surgery type: Gastric bypass; Patient HX: Sudden onset of left flank pain this a. M. ; Additional info: Severe left flank pain TECHNIQUE: Imaging protocol: Computed tomography of the abdomen and pelvis without contrast. Radiation optimization: All CT scans at this facility use at least one of these dose optimization techniques: automated exposure control; mA and/or kV adjustment per patient size (includes targeted exams where dose is matched to clinical indication); or iterative reconstruction. COMPARISON: CT abdomen pelvis w con* [id number] 11/03/2020 10:40 AM RADIATION DOSE METRICS: Total DLP (mGy-cm): 1618.95 FINDINGS: Liver: Normal. No mass. Gallbladder and bile ducts: The gallbladder is mildly distended. There is suggestion of subtle mural thickening. There is also mild intra and extrahepatic biliary dilation. No obstructing stones are seen by CT. Pancreas: Normal. No ductal dilation. Spleen: Normal. No splenomegaly. Adrenal glands: Normal. No mass. Kidneys and ureters: Mild left hydroureteronephrosis secondary to a 3 mm calculus at the left ureterovesical junction. There is a cluster of nonobstructing stones layering within a lower pole calyx measuring to 1.4 cm. Stomach and bowel: Postsurgical changes of [place]-en-Y gastric bypass. No bowel obstruction. Appendix: No evidence of appendicitis. Intraperitoneal space: Unremarkable. No free air. No significant fluid collection. Vasculature: Mild burden of atherosclerotic plaque in the abdominal aorta and branch vessels. No aneurysm. Lymph nodes: Unremarkable. No enlarged lymph nodes. Urinary bladder: Unremarkable as visualized. Reproductive: Unremarkable as visualized. Bones/joints: Unremarkable. No acute fracture. Soft tissues: Unremarkable. CT/CT kidney stone [id number] IMPRESSION: 1. Mild left hydroureteronephrosis secondary to a 3 mm calculus at the left ureterovesical junction. 2. There is a cluster of nonobstructing stones layering within a lower pole calyx measuring to 1.4 cm. 3. The gallbladder is mildly distended with suggestion of subtle mural thickening. There is also mild intra and extrahepatic biliary dilation. MRCP or ERCP could further evaluate for choledocholithiasis as clinically warranted.
[2021-11-13] MEDS: ketorolac 30 mg/mL INJ 15 MG IVP (02:42)
[2021-11-13 02:43] LABS: Alanine Aminotransferase 17 U/L (0-33); Albumin Level 4.3 g/dL (3.5-5.2); Alkaline Phosphatase 89 IU/L (35-105); Anion Gap 13.1 (5-19); Aspartate Amino Transferase 19 U/L (0-32); Blood Urea Nitrogen 16 mg/dL (8-23); Calcium 9.3 mg/dL (8.5-10.5); Carbon Dioxide 28 mmol/L (22-29); Chloride 105 mmol/L (98-107); Globulin 2.6 g/dL (1.3-4.6); Glomerular Filtration Rate 99.4 mL/min (90-130); Glucose 128 mg/dL (65-115); Osmolality Calculated 297 mOsm/kg (285-295); Potassium 4.1 mmol/L (3.5-5.1); Sodium 142 mmol/L (136-145); Total Bilirubin 0.5 mg/dL (0.15-1.2); Total Protein 6.9 g/dL (6.6-8.7)
[2021-11-13 02:48] LABS: Lactate (Lactic Acid level) 1.3 mmol/L (0.5-2.2)
[2021-11-13 03:00] LABS: Urine Appearance Clear (CLEAR); Urine Color Yellow (Yellow)
[2021-11-13 03:00] LABS: Lipase 11 U/L (13-60)
[2021-11-13 03:01] LABS: Add Urine Microscopic? YES; Bilirubin Urine Neg (Negative); Blood Urine Neg (Negative); Glucose Urine UA Norm (Normal); Ketones Urine 1+ (Negative); Leukocyte Esterase Urine 1+ (Negative); Nitrate Urine Negative (Negative); Protein Urine Neg (Negative); Specific Gravity, Urine 1.015 (1.005-1.030); Urobilinogen Urine 4 mg/dL (Negative); pH Urine 6.5 (5-7)
[2021-11-13 03:13] LABS: Add Urine Culture? No; Bacteria Urine TRACE /hpf; Mucus Urine TRACE /hpf; RBC Urine 0-4 /hpf (0-2)
[2021-11-13] MEDS: morphine 4 mg/mL SDV 1 mL IVP ×2 (04:41→06:59)
[2021-11-13] MEDS: fentaNYL 50 mcg/mL INJ 2mL IVP (04:58)
--- NOTE | 2021-11-13 05:48 | US_ITS ---
WS: [id number] RIGHT UPPER QUADRANT ULTRASOUND HISTORY: abnormal CT, eval RUQ/biliary COMPARISON: CT 11/13/2021. Liver: 19.6 cm in length. Liver is moderately enlarged and heterogeneous. Coarsened echotexture and n odular surface. Suspect very early mild central biliary dilatation. Portal Vein: Normal hepatopetal flow with monophasic waveform. Gallbladder: Moderately distended gallbladder with sludge. No shadowing from stones. CBD: 1.2 cm, enlarged but no choledocholithiasis identified. Pancreas: Pancreatic duct is mildly dilated throughout its course. Right kidney: 11.1 cm in length. Normal size and echogenicity. No hydronephrosis or mass. Aorta and IVC: Unremarkable abdominal aorta and IVC. No ascites. US/US abdomen limited [id number] IMPRESSION: 1. Mildly hydropic gallbladder with sludge. 2. Dilated common bile duct to 1.2 cm. No choledocholithiasis or pancreatic he ad mass identified by ultrasound or the unenhanced CT performed earlier today. Consider follow-up MRCP. 3. Cirrhotic liver. 4. Suspicious for very early mild central bile duct dilatation. Notified Dr. Burr at 11/13/2021 8:39 AM.
[2021-11-13] MEDS: tamsulosin 0.4 mg Capsule PO (06:59)
[2021-11-13] MEDS: HYDROmorphone 1 mg/mL INJ 1 mL 0.5 MG IVP (09:29)
== END 2021-11-13 09:31 | disposition home or self-care (01) ==
PROVIDERS: Emergency Medicine; Emergency Provider Family Medicine; PCP Family Medicine
DX: N20.0 Calculus of kidney (principal); K83.8 Other specified diseases of biliary tract; E11.51 Type 2 diabetes mellitus with diabetic peripheral angiopathy without gangrene; I10 Essential (primary) hypertension; E78.5 Hyperlipidemia, unspecified; Z79.51 Long term (current) use of inhaled steroids; Z79.891 Long term (current) use of opiate analgesic
CPT/HCPCS: 71045; 74176; 76705; 80053; 81001; 83605; 83690; 85025; 96374; 96375; 96376; 99284; J1170; J1885; J2270; J2405; J3010

== ENCOUNTER 2021-11-26 06:00 | Outpatient (RCR) | payer MEDICARE, SELFPAY | END 2021-12-25 23:59 | disposition home or self-care (01) | LOC: MPT 06:00 | PROVIDERS: PCP Family Medicine; Referring Provider Family Medicine; Visit Provider Family Medicine | DX: M25.562 Pain in left knee (principal) | CPT/HCPCS: 97110; 97140; G0283 ==

== ENCOUNTER → 2021-11-27 14:06 | Outpatient (BNVA) | payer MEDICARE, SELFPAY | PROVIDERS: PCP Family Medicine; Referring Provider Family Medicine; Visit Provider Surgery | DX: Z98.84 Bariatric surgery status (principal); K83.8 Other specified diseases of biliary tract; R11.2 Nausea with vomiting, unspecified; R10.9 Unspecified abdominal pain; I10 Essential (primary) hypertension; E11.8 Type 2 diabetes mellitus with unspecified complications | CPT/HCPCS: 99213 ==

== ENCOUNTER 2021-11-28 06:56 | Outpatient (CLI) | payer MEDICARE, SELFPAY ==
--- NOTE | 2021-11-28 07:00 | XRR_ITS ---
PROCEDURE INFORMATION: Exam: XR Abdomen Exam date and time: 11/28/2021 7:10 AM Age: 66 years old Clinical indication: Condition or disease; Kidney or ureter condition; Calculus (stone) in ureter; Additional info: Ureteral calculus, [email or web address] 11/28/21 @0700 appt to follow TECHNIQUE: Imaging protocol: XR of the abdomen. Views: Frontal supine view of the abdomen. 1 View. COMPARISON: CT kidney stone [id number] 11/13/2021 3:09 AM FINDINGS: Gastrointestinal tract: There is moderate colonic fecal stasis throughout the colon. No bowel dilation. Surgical sutures are seen in the left upper quadrant and epigastric region. Bones/joints: There is osteoarthritis and levoscoliosis in the lumbar spine. XR/XR KUB [id number] IMPRESSION: 1. No acute findings. 2. Surgical sutures left upper quadrant 3. Lumbar spine osteoarthritis and levoscoliosis
== END 2021-11-28 06:57 | disposition home or self-care (01) ==
LOC: RAD 06:58
PROVIDERS: PCP Family Medicine; Visit Provider Urology
DX: M47.816 Spondylosis without myelopathy or radiculopathy, lumbar region; N20.2 Calculus of kidney with calculus of ureter; N39.0 Urinary tract infection, site not specified
CPT/HCPCS: 74018; 81003; 88300; 99213

== ENCOUNTER → 2021-12-02 09:09 | Outpatient (BNVA) | payer MEDICARE, SELFPAY | PROVIDERS: PCP Family Medicine; Visit Provider Urology | DX: N39.0 Urinary tract infection, site not specified (principal); N20.1 Calculus of ureter; N20.0 Calculus of kidney | CPT/HCPCS: 82365 ==

== ENCOUNTER 2021-12-04 06:58 | Outpatient (CLI) | payer MEDICARE, SELFPAY | END 2021-12-04 06:59 | disposition home or self-care (01) | LOC: RAD 06:59 | PROVIDERS: PCP Family Medicine; Visit Provider Nurse Practitioner Family | DX: I87.2 Venous insufficiency (chronic) (peripheral) (principal); E66.01 Morbid (severe) obesity due to excess calories; J45.909 Unspecified asthma, uncomplicated; K21.9 Gastro-esophageal reflux disease without esophagitis; R22.43 Localized swelling, mass and lump, lower limb, bilateral; Z86.711 Personal history of pulmonary embolism; Z86.718 Personal history of other venous thrombosis and embolism; R06.02 Shortness of breath; I10 Essential (primary) hypertension | CPT/HCPCS: 99214 ==

== ENCOUNTER 2021-12-25 06:40 | Outpatient (CLI) | payer MEDICARE, SELFPAY ==
--- NOTE | 2021-12-25 07:15 | MR_ITS ---
WS: [id number] MRI/MRCP OF THE ABDOMEN WITHOUT GADOLINIUM ENHANCEMENT TECHNIQUE: Thin and thick slab MRCP, Axial T2, Coronal MRCP, Axial Dual Echo, and Axial 2-D Fiesta imaging was obtained. Coronal 2-D Fiesta imaging. CLINICAL INFORMATION: abd pain COMPARISON: Ultrasound November 13, [address] November 13, 2021. FINDINGS: Hydropic distended gallbladder similar in appearance to the recent studies. No cholelithiasis. Gallbl adder sludge seen on the recent ultrasound. Lobulated dilatation of the cystic duct and common bile d uct measuring 12 mm at the pancreatic head. No visualized obstructing stone bile duct stone or lesion . Mild dilatation of the pancreatic duct. No visualized pancreatic lesion. Mild central intrahepatic biliary ductal dilatation with slightly increased T2 signal along the cee l triads. Intrahepatic ducts otherwise appear normal. Spleen size measures 12 mm within normal limits. Normal c aliber upper abdominal aorta. Prior postoperative changes at the GE junction. Adrenal glands are norm al. Fatty atrophy of the pancreas. Lumbar curve. No hydronephrosis in either kidney. MR/MR MRCP [id number] Impression: 1. Hydropic distended gallbladder is similar to the prior examinations. No cho lelithiasis. Gallbladder sludge but are visualized in the recent ultrasound. 2. Dilatation of the cystic duct and common bile duct. Common bile duct measur es 12 mm. This tapers distally. No obstructing mass or lesion. 3. Normal pancreatic duct. No mass measuring of the pancreas. 4. Mild central bile duct dilatation with slight increased T2 signal along the portal triads. Recommend correlation for cholangitis and hepatitis. Recommend correlation with liver function tests and consider further evaluation with ERCP to exclude distal occult ampulla obstruction or stricture.
== END 2021-12-25 06:41 | disposition home or self-care (01) ==
LOC: RAD 06:41
PROVIDERS: PCP Family Medicine; Visit Provider Surgery
DX: K82.8 Other specified diseases of gallbladder (principal)
CPT/HCPCS: 74181

== ENCOUNTER 2021-12-26 06:00 | Outpatient (RCR) | payer MEDICARE, SELFPAY | END 2022-01-25 23:59 | disposition home or self-care (01) | LOC: MPT 06:00 | PROVIDERS: PCP Family Medicine; Referring Provider Family Medicine; Visit Provider Family Medicine | DX: M25.562 Pain in left knee (principal) | CPT/HCPCS: 97110; 97140; G0283 ==

== ENCOUNTER 2022-01-01 15:49 | Emergency (ER) | payer MEDICARE, SELFPAY ==
[2022-01-01 16:40] VITALS: BP 112/65; PULSE 56; RESP 18; TEMP 37.5; O2SAT 99
--- NOTE | 2022-01-01 17:13 | CTR_ITS ---
PROCEDURE INFORMATION: Exam: CT Abdomen And Pelvis With Contrast Exam date and time: 01/01/2022 9:13 PM Age: 66 years old Clinical indication: Abdominal pain; Localized; Prior surgery; Surgery type: Gastric bypass. Gen fundoplication; Patient HX: C/O severe left sided abd pain TECHNIQUE: Imaging protocol: Computed tomography of the abdomen and pelvis with contrast. Radiation optimization: All CT scans at this facility use at least one of these dose optimization techniques: automated exposure control; mA and/or kV adjustment per patient size (includes targeted exams where dose is matched to clinical indication); or iterative reconstruction. Contrast material: OMNI 350; Contrast volume: 95 ml; Contrast route: INTRAVENOUS (IV); COMPARISON: MR MRCP [id number] 12/25/2021 7:45 AM RADIATION DOSE METRICS: Total DLP (mGy-cm): 1142.34 FINDINGS: Liver: There is a diffuse decrease in hepatic parenchymal density, consistent with mild fatty infiltration. There is no focal abnormality within the liver. Gallbladder and bile ducts: There is moderate dilatation of the gallbladder which measures 5 cm in diameter and 11 cm in length. Common bile duct is dilated to 15 mm and there is mild intrahepatic biliary tract dilatation. The significance and etiology of these findings is not certain but these are not significantly changed from recent prior studies. Pancreas: The pancreas is normal. Spleen: The spleen is normal. Adrenal glands: The adrenal glands are normal. Kidneys and ureters: The right kidney is normal. There are multiple left renal collecting system calcifications. There is new or increased perinephric stranding around the left kidney. There is moderate left hydronephrosis. There is left hydroureter. There is a 2.5 mm sized stone at the left ureterovesical junction stone measures up to 559 Hounsfield units but is not definitely seen on the dietitian teacher image. This stone was present previously Stomach and bowel: There is no evidence of colitis/diverticulitis. There is no evidence of intestinal obstruction. There are findings of gastric bypass surgery not changed from 11/13/2021. Appendix: A normal appendix is identified. Intraperitoneal space: There is no evidence of free intraperitoneal fluid. Vasculature: The aorta demonstrates mild atherosclerotic calcification. Lymph nodes: There is no evidence of lymphadenopathy. Urinary bladder: Unremarkable as visualized. Reproductive: Unremarkable as visualized. Bones/joints: The lumbar spine demonstrates moderate degenerative changes at multiple levels. There is mild scoliosis of the lumbar spine concave to the right. Soft tissues: Unremarkable. CT/CT abdomen pelvis w con* [id number] IMPRESSION: 1. Obstructing stone at the left ureterovesical junction causing increased left hydronephrosis and hydroureter. 2. Left nephrolithiasis 3. Hydrops of the gallbladder. Gallbladder size increased from previous 4. Dilated intrahepatic and extrahepatic bile ducts of uncertain etiology and significance not significantly changed.
--- NOTE | 2022-01-01 17:14 | ECG_ITS ---
[facility] Test Date: 2022-01-01 Pat Name: Radha Willis Department: Room: Gender: Female [employer] Gateman: : 1955 Requested By: Vinay Berg Order Number: [id number] Jackie MD: Uday Ramirez M.D. Measurements Intervals [place] Rate: 54 P: 62 NJ: 144 QRS: -22 QRSD: 86 T: 23 QT: 400 QTc: 381 Interpretive Statements SINUS BRADYCARDIA WITH OCCASIONAL ECTOPIC PREMATURE COMPLEXES BORDERLINE LEFT AXIS DEVIATION [QRS AXIS < -20] LOW QRS VOLTAGE IN PRECORDIAL LEADS [QRS DEFLECTION < 1.0 mV IN CHEST LEADS] Compared to ECG 11/20/2019 08:46:51 Sinus rhythm no longer present Ventricular premature complex(es) no longer present Myocardial infarct finding no longer present Electronically Signed On 01-01-2022 19:25:56 CDT by Uday Ramirez M.D. [id number]
[2022-01-01 17:15] VITALS: BP 145/50; PULSE 58; O2SAT 98
--- NOTE | 2022-01-01 17:15 | ED_ITS ---
HPI - Abdominal Pain General: Chief Complaint: Abdominal Pain Stated Complaint: left side abd pain Time Seen by Provider: 01/01/22 17:09 History of Present Illness: 66-year-old presents for left flank pain rating to the umbilicus. Does report nausea and nonbloody nonbilious emesis. Denies diarrhea or constipation. Denies dysuria or pelvic discharge. Denies fevers or chills. States that this started a week ago. States it is achy. Received some fentanyl and Zofran with some improvement by EMS. Review of Systems Narrative: - CONSTITUTIONAL: Denies weight loss, fever and chills. - HEENT: Denies changes in vision and hearing. - RESPIRATORY: Denies SOB and cough. - CV: Denies palpitations and CP. - GI: As above - : Denies dysuria and urinary frequency. - MSK: Denies myalgia and joint pain. - SKIN: Denies rash and pruritus. - NEUROLOGICAL: Denies headache, weakness, numbness and syncope. - PSYCHIATRIC: Denies suicidal ideation PFS ED PFSH: Medical History Arthritis of both knees Chronic knee pain after total replacement of both knee joints Diabetes mellitus Encounter for health education History of basal cell carcinoma History of revision of total replacement of left knee joint (~2017) Hypersensitivity reaction Hypertension Mechanical complication of prosthetic knee implant Morbid obesity Nickel allergy, current reaction Renal calculus, left Urinary tract infection Yeast vaginitis Surgical History History of bilateral knee replacement History of colonoscopy (~2017) History of esophagogastroduodenoscopy (EGD) (~2017) History of Gen fundoplication (~2010) History of total bilateral knee replacement S/P gastric bypass Social History Smoking and tobacco status: never smoked Alcohol intake: never Marital status: Current occupational status: retired History of recent travel: No Female Reproductive History: Spontaneous abortions: No Physical Exam Narrative: EXAM NARRATIVE: - GENERAL: Alert and oriented x 3. No acute distress. Well-nourished. - EYES: EOMI. Anicteric. - HENT: Atraumatic, no C-spine tenderness. Moist mucous membranes. No scleral icterus. No cervical lymphadenopathy. - LUNGS: Clear to auscultation bilaterally. No accessory muscle use. Equal lung sounds bilaterally. No respiratory distress. - CARDIOVASCULAR: Regular rate and rhythm. No murmur. No JVD. - ABDOMEN: Soft, periumbilical tenderness, non-distended. Positive CVA tenderness on the left, no rebound or guarding, negative Stafford sign. No p alpable masses. - EXTREMITIES: No edema. Non-tender. - SKIN: No rashes or lesions. Warm. - NEUROLOGIC: No meningismus or focal neurological deficits. CN II-XII grossly intact. - PSYCHIATRIC: Cooperative. Appropriate mood and affect. Course Vital Signs: Vital signs: Vital Signs Temperature 99.5 F 01/01/22 16:40 Pulse Rate 59 L 01/01/22 18:00 Respiratory Rate 16 01/01/22 20:02 Blood Pressure 137/49 01/01/22 18:00 Pulse Oximetry 96 01/01/22 18:00 MDM - Abdominal Pain Medical Decision Making 66-year-old presents with left flank pain radiating to the umbilicus. CT scan does not reveal any sign of dissection or AAA or appendicitis however there is a left-sided kidney stone which likely explains her symptoms. Remainder of lab work unremarkable. EKG and troponin do not reveal any significant ischemia or acute abnormality. Prescription for [place] Flomax and Zofran provided. At this time I believe patient would be safe for discharge and outpatient follow-up. Return precautions provided. Plan was reviewed with the patient who expressed understanding. Questions answered. Patient will follow up with PCP. Patient discharged in stable condition. Lab Data : 01/01/22 20:11 01/01/22 20:11 Labs/Radiology: Radiology Impressions Abdomen/Pelvis CT 01/01/22 17:13 IMPRESSION: 1. Obstructing stone at the left ureterovesical junction causing increased left hydronephrosis and hydroureter. 2. Left nephrolithiasis 3. Hydrops of the gallbladder. Gallbladder size increased from previous 4. Dilated intrahepatic and extrahepatic bile ducts of uncertain etiology and significance not significantly changed. Laboratory Results WBC 12.2 10^3/uL (4.0-10.0) H 01/01/22 20:11 RBC 4.23 10^6/uL (4.1-5.3) 01/01/22 20:11 Hgb 13.1 g/dL (11.5-15.3) 01/01/22 20:11 Hct 40.9 % (37.0-47.0) 01/01/22 20:11 MCV 96.7 fl (81-99) 01/01/22 20:11 MCH 31.0 pg (28.0-34.0) 01/01/22 20:11 MCHC 32.0 g/dL (30.0-36.0) 01/01/22 20:11 RDW 12.9 % (12.1-15.1) 01/01/22 20:11 Plt Count 224 10^3/cmm (130-400) 01/01/22 20:11 MPV 10.6 fL (7.4-10.4) H 01/01/22 20:11 Neut % (Auto) 87.3 % 01/01/22 20:11 Lymph % (Auto) 8.2 % 01/01/22 20:11 Jay % (Auto) 3.8 % 01/01/22 20:11 Eos % (Auto) 0.1 % 01/01/22 20:11 Baso % (Auto) 0.2 % 01/01/22 20:11 Neut # (Auto) 10.65 10^3/uL (1.8-7.7) H 01/01/22 20:11 Lymph # (Auto) 1.0 10^3/uL (0.8-4.8) 01/01/22 20:11 Jay # (Auto) 0.5 10^3/uL (0.2-0.9) 01/01/22 20:11 Eos # (Auto) 0.0 10^3/uL (0.0-0.8) 01/01/22 20:11 Baso # (Auto) 0.0 10^3/uL (0.0-0.1) 01/01/22 20:11 Nucleated RBC % (auto) 0 % 01/01/22 20:11 Nucleated RBCs # 0.0 /100WBC 01/01/22 20:11 Sodium 138 mmol/L (136-145) 01/01/22 20:11 Potassium 4.1 mmol/L (3.5-5.1) 01/01/22 20:11 Chloride 104 mmol/L (98-107) 01/01/22 20:11 Carbon Dioxide 21 mmol/L (22-29) L 01/01/22 20:11 Anion Gap 17.1 (5-19) 01/01/22 20:11 BUN 11 mg/dL (8-23) 01/01/22 20:11 Creatinine 0.7 mg/dL (0.5-0.9) 01/01/22 20:11 GFR Calculation 83.2 mL/min (90-130) L 01/01/22 20:11 Glucose 117 mg/dL (65-115) H 01/01/22 20:11 Calculated Osmolality 286 mOsm/kg (285-295) 01/01/22 20:11 Lactate 0.9 mmol/L (0.5-2.2) 01/01/22 17:50 Calcium 8.5 mg/dL (8.5-10.5) 01/01/22 20:11 Total Bilirubin 0.3 mg/dL (0.15-1.2) 01/01/22 20:11 AST 15 U/L (0-32) 01/01/22 20:11 ALT 12 U/L (0-33) 01/01/22 20:11 Alkaline Phosphatase 86 IU/L (35-105) 01/01/22 20:11 Troponin T Baseline 9 ng/L (0-10) 01/01/22 17:50 Total Protein 6.0 g/dL (6.6-8.7) L 01/01/22 20:11 Albumin 3.7 g/dL (3.5-5.2) 01/01/22 20:11 Globulin 2.3 g/dL (1.3-4.6) 01/01/22 20:11 Lipase 9 U/L (13-60) L 01/01/22 20:11 Urine Color Colorless (Yellow) 01/01/22 20:11 Urine Appearance Clear (CLEAR) 01/01/22 20:11 Urine pH 6 (5-7) 01/01/22 20:11 Ur Specific [place] 1.010 (1.005-1.030) 01/01/22 20:11 Urine Protein Neg (Negative) 01/01/22 20:11 Urine Glucose (UA) Norm (Normal) 01/01/22 20:11 Urine Ketones 1+ (Negative) H 01/01/22 20:11 Urine Blood 2+ (Negative) H 01/01/22 20:11 Urine Nitrate Negative (Negative) 01/01/22 20:11 Urine Bilirubin Neg (Negative) 01/01/22 20:11 Urine Urobilinogen Norm mg/dL (Negative) 01/01/22 20:11 Ur Leukocyte Esterase Negative (Negative) 01/01/22 20:11 Urine RBC 0-4 /hpf (0-2) H 01/01/22 20:11 Urine WBC 0-4 /hpf (0-5) H 01/01/22 20:11 Ur Squamous Epith Cells 0-4 /hpf (0-5) H 01/01/22 20:11 Amorphous Sediment Not Reportable 01/01/22 20:11 Urine Bacteria Trace /hpf (NONE) 01/01/22 20:11 EKG Data EKG 1: Other EKG comments: Sinus bradycardia with occasional PVC, no sign of acute ischemia by cardiology. Discharge Plan Discharge Condition: Stable Prescriptions: No Action (DME) supinator to the right ankle See Rx Instructions .Route .MEDSUPPLY Qty: 1 0RF Rx Instructions: As directed (DME) accomadative orthotic See Rx Instructions .Route .MEDSUPPLY Qty: 1 0RF Rx Instructions: As directed baclofen 10 mg tablet 20 mg PO QID MDD 8 tabs Qty: 30 1RF Rx Instructions: start 1 tab BID and may increase to max as needed mupirocin 2 % ointment 1 applic topical BID Qty: 22 0RF biotin 1 mg tablet 1 mg PO TID 0RF Maximum Daily Multivitamin 18-0.4 mg tablet PO DAILY 0RF mecobalamin (vitamin B12) 5,000 mcg tablet,disintegrating PO DAILY 0RF fluconazole 150 mg tablet 150 mg PO Q3D Qty: 2 2RF losartan 25 mg tablet 12.5 mg PO QPM 90 Days Qty: 45 1RF Rx Instructions: dose change mupirocin 2 % ointment 1 applic topical BID 14 Days Qty: 22 0RF cephalexin 500 mg capsule 500 mg PO BID 7 Days Qty: 14 0RF mupirocin 2 % ointment 1 applic topical BID Qty: 22 0RF potassium chloride 10 mEq capsule, extended release 20 meq PO DAILY Qty: 60 2RF Rx Instructions: Use with water pill as needed furosemide 20 mg tablet 40 mg PO DAILY PRN (Reason: edema) Qty: 60 5RF tizanidine 4 mg tablet 4 mg PO Q8H PRN (Reason: muscle spasticity) Qty: 90 2RF Rx Instructions: 340B pramipexole 0.5 mg tablet See Rx Instructions .ROUTE .COMPLEX 30 Days Qty: 120 0RF Rx Instructions: 2 TABS IN THE AM AND 2 TABS QPM montelukast 10 mg tablet 10 mg PO QPM 30 Days Qty: 30 0RF Hold Instructions: Home Medication placed on hold at Doctor's office metoprolol tartrate 25 mg tablet 25 mg PO DAILY 90 Days Qty: 30 0RF Hold Instructions: Home Medication placed on hold at Doctor's office mupirocin 2 % ointment 1 applic topical BID 10 Days Qty: 22 2RF Rx Instructions: apply to lesion on nose levothyroxine 175 mcg tablet 175 mcg PO QAM 90 Days Qty: 90 0RF pantoprazole 40 mg tablet,delayed release (DR/EC) 40 mg PO QPM 90 Days Qty: 90 0RF fluticasone furoate-vilanterol [Breo Ellipta] 100-25 mcg/dose blister with device 1 inh inhalation DAILY Qty: 60 3RF albuterol sulfate [Ventolin HFA] 90 mcg/actuation HFA aerosol inhaler 2 puff inhalation Q6H PRN (Reason: shortness of breath or wheezing) Qty: 8.5 5RF nitroglycerin 0.4 mg Tablet, Sublingual 0.4 mg SUBLINGUAL Q5M PRN (Reason: Chest Pain) 0RF gabapentin 300 mg Capsule 300 mg PO BID@08,17 0RF oxycodone 5 mg tablet 2.5 mg PO Q6H PRN (Reason: pain) Qty: 8 0RF Rx Instructions: 1/2 to 1 tab every 6 hr as needed for severe pain Flomax 0.4 mg capsule 0.4 mg PO DAILY Qty: 20 0RF ondansetron HCl 4 mg tablet 4 mg PO Q6H PRN (Reason: nausea and vomiting) Qty: 20 0RF hydrocodone-acetaminophen 5-325 mg tablet 1 tab PO Q6H PRN (Reason: pain) Qty: 25 0RF Referrals: Re Nathan MD [Primary Care Provider] - Coding Level of Care Code ED Grill Chef for Bernie Colvin
[2022-01-01] MEDS: morphine 4 mg/mL SDV 1 mL IVP (17:50)
[2022-01-01] MEDS: ondansetron 2 mg/ML SDV 2 mL 4 MG IVP (17:50)
[2022-01-01 18:00] VITALS: BP 137/49; PULSE 59; O2SAT 96
[2022-01-01] MEDS: sodium chloride 0.9% 1,000 ML 999 ML IV (18:07)
[2022-01-01 18:26] LABS: Troponin(5th) Baseline 9 ng/L (0-10)
[2022-01-01 18:27] LABS: Lactate (Lactic Acid level) 0.9 mmol/L (0.5-2.2)
[2022-01-01 20:02] VITALS: RESP 16
[2022-01-01] MEDS: HYDROmorphone 1 mg/mL INJ 1 mL 0.5 MG IVP ×2 (20:02→21:50)
[2022-01-01 20:31] LABS: Add Urine Culture? No; Add Urine Microscopic? YES; Bacteria Urine TRACE /hpf; Basophils % 0.2 %; Bilirubin Urine Neg (Negative); Blood Urine 2+ (Negative); Eosinophils % 0.1 %; Glucose Urine UA Norm (Normal); Hematocrit 40.9 % (37.0-47.0); Hemoglobin 13.1 g/dL (11.5-15.3); Ketones Urine 1+ (Negative); Leukocyte Esterase Urine Negative (Negative); Lymphocytes % 8.2 %; Mean Corpuscular Volume 96.7 fl (81-99); Mean Platelet Volume 10.6 fL (7.4-10.4); Monocytes # 0.5 10^3/uL (0.2-0.9); Monocytes % 3.8 %; Neutrophils # 10.65 10^3/uL (1.8-7.7); Neutrophils % 87.3 %; Nitrate Urine Negative (Negative); Nucleated Red Blood Cells % 0 %; Platelet Count 224 10^3/cmm (130-400); Protein Urine Neg (Negative); RBC Urine 0-4 /hpf (0-2); Red Blood Count 4.23 10^6/uL (4.1-5.3); Red Cell Distribution Width 12.9 % (12.1-15.1); Squamous Epithelial Cell Urine 0-4 /hpf (0-5); Urine Appearance Clear (CLEAR); Urine Color Colorless (Yellow); Urobilinogen Urine Norm (Negative); WBC Urine 0-4 /hpf (0-5); White Blood Count 12.2 10^3/uL (4.0-10.0); pH Urine 6 (5-7)
[2022-01-01 20:49] LABS: Alanine Aminotransferase 12 U/L (0-33); Albumin Level 3.7 g/dL (3.5-5.2); Alkaline Phosphatase 86 IU/L (35-105); Anion Gap 17.1 (5-19); Aspartate Amino Transferase 15 U/L (0-32); Blood Urea Nitrogen 11 mg/dL (8-23); Calcium 8.5 mg/dL (8.5-10.5); Carbon Dioxide 21 mmol/L (22-29); Chloride 104 mmol/L (98-107); Globulin 2.3 g/dL (1.3-4.6); Glomerular Filtration Rate 83.2 mL/min (90-130); Glucose 117 mg/dL (65-115); Lipase 9 U/L (13-60); Osmolality Calculated 286 mOsm/kg (285-295); Potassium 4.1 mmol/L (3.5-5.1); Sodium 138 mmol/L (136-145); Total Bilirubin 0.3 mg/dL (0.15-1.2)
[2022-01-01] MEDS: iohexol 350 mg/mL 100 mL Btl IV (21:25)
[2022-01-01 21:40] VITALS: BP 133/58
[2022-01-01 22:00] VITALS: BP 115/62
== END 2022-01-01 23:02 | disposition home or self-care (01) ==
PROVIDERS: Nurse Practitioner Family; Emergency Provider Emergency Medicine; PCP Family Medicine
DX: N20.0 Calculus of kidney (principal)
CPT/HCPCS: 74177; 80053; 81001; 83605; 83690; 84484; 85025; 93005; 96361; 96374; 96375; 96376; 99285; J1170; J2270; J2405; J7030; Q9967

== ENCOUNTER 2022-01-06 09:06 | Outpatient (CLI) | payer MEDICARE, SELFPAY ==
--- NOTE | 2022-01-06 08:45 | XR_ITS ---
WS: [id number] KUB, AP view, 01/06/2022 Clinical Data: STONES Comparison: None. Findings: No abnormal intraabdominal masses are seen. There is no dilatated small bowel or evidence of obstruct ion. There are surgical sutures in the left side of the abdomen. There are possible left renal calcificati ons There is a large amount of fecal material and colon gas obscuring detail over the kidneys. There is a levoscoliosis of the lumbar spine. XR/XR KUB [id number] Impression: 1. Possible left renal calcifications. 2. Fecal material and colon gas obscures detail over both kidneys.
== END 2022-01-06 09:07 | disposition home or self-care (01) ==
PROVIDERS: PCP Family Medicine; Visit Provider Urology
DX: N20.2 Calculus of kidney with calculus of ureter
CPT/HCPCS: 74018; 81003; 99213

== ENCOUNTER → 2022-01-07 08:31 | Outpatient (BNVA) | payer MEDICARE, SELFPAY | PROVIDERS: PCP Family Medicine; Visit Provider Podiatrist Foot & Ankle Surgery | DX: M79.672 Pain in left foot (principal); M71.9 Bursopathy, unspecified; M21.622 Bunionette of left foot; Q82.8 Other specified congenital malformations of skin | CPT/HCPCS: 73630; 99214 ==

== ENCOUNTER 2022-01-12 05:45 | Day surgery (SDC) | payer MEDICARE, SELFPAY ==
[2022-01-09 10:05] VITALS: BMI 29.4
[2022-01-12] VITALS (8 sets, daily range): BP systolic 110–139; BP diastolic 40–68; PULSE 50–79; RESP 16–20; TEMP 36.2–36.6; O2SAT 91–99
--- NOTE | 2022-01-12 | SCC_ITS ---
Procedure done: 1. Cystoscopy, LEFT retrograde ureteropyelogram 2. Left ureterorenoscopy with laser lithotripsy, stent. (6 Turkish by 28 cm) 87.6 seconds of fluoroscopic guidance, for a cumulative dose of 16.14 mGy, was provided to Dr. Burnett by the radiology department. C-arm images of the abdomen were saved for the patient's permanent record. [facility]
--- NOTE | 2022-01-12 05:47 | XR_ITS ---
WS: [id number] XR KUB [id number] REASON FOR EXAM: Preop left ureterorenoscopy FINDINGS: Numerous small round calculi, 1 to 4 mm in diameter, overlying the lower pole of the left kidney with some central migration of several calculi compared to the previous examination of 01/06/2022. Possible calculus at a position compatible with the left ureteral vesicle junction calculus demonstra curtis on the CT scan of 01/01/2022, equivocal. No new findings. XR/XR KUB [id number] IMPRESSION: Left intrarenal calculi. Possible persistence of left ureteral vesicle junction calculus.
--- NOTE | 2022-01-12 05:47 | SC_ITS ---
WS: [id number] INTRAOPERATIVE TECHNIQUE: 3 Spot fluoroscopic images for intraoperative purposes. FLUOROSCOPY TIME: ? seconds CLINICAL INFORMATION: Left ureterorenoscopy COMPARISON: None. FINDINGS: Images obtained for LEFT double-J ureteral stent placement. Intrarenal calculi lower calyx LEFT kidne y appears similar to previous SC/C-arm [place] for Urology IMPRESSION: Images obtained for intraoperative purposes.
--- NOTE | 2022-01-12 06:17 | W.PM.OPSUD ---
Surgery/Procedure H&P Update DATE OF PROCEDURE: January 12, 2022 DATE H&P PERFORMED: 01/06/22 H&P UPDATE INFORMATION: I have reviewed H&P completed within last 30 days, I have examined patient prior to procedure, Changes to prior documentation as noted here and H&P is in [facility] EMR on date indicated CHANGES TO PREVIOUS DOCUMENTATION: Was seen at [facility] with c/o renal colic and passing 3 small stones again since last visit Currently she is doing well. We reviewed the procedure expectations possible staged approach etc. in detail again and she seemed content. Asked good questions and expressed her contentment with my answers. PREOP DIAGNOSIS: Multiple left renal calculi PLANNED PROCEDURE: Operation Date: 01/12/22 07:00 Proposed Procedures p CYSTOSCOPY LEFT RETROGRADE URETEROSCOPY RENOSCOPY LASER STENT 18897 MODIFIER 26 66491,N20.1(Not Applicable) - Craig Burnett MD s Retrograde Pyelogram(Left) - Craig Burnett MD s Ureteroscopy(Left) - Craig Burnett MD s Laser Lithotripsy(Left) - Craig Burnett MD s Ureteral Stent Placement(Left) - Craig Burnett MD
[2022-01-12] MEDS: sodium chloride 0.9% 1,000 ML 30 ML IV (06:44)
[2022-01-12] MEDS: scopolamine 1.5 Patch 1 PATCH TRANSDERMA (06:48)
[2022-01-12] MEDS: levofloxacin-dextrose 5 % 500 MG/100 ML PREMIX 100 MG IV (07:00)
--- NOTE | 2022-01-12 07:09 | PM.OP ---
Operative Report Date of procedure: January 12, 2022 Pre-op diagnosis: Multiple left renal calculi Post-op diagnosis: Multiple left renal calculi Procedure done: 1. Cystoscopy, LEFT retrograde ureteropyelogram 2. Left ureterorenoscopy with laser lithotripsy, stent. (6 Malagasy by 28 cm) Implants: Ureteral stent Specimens removed/disposition: Sand fragments Pathology: Articulation Officer sand Surgeon: Lex Estimated blood loss: Minimal Urine output: Not measured Complications: None Findings: Stones located in the expected position of the lower pole. They were very numerous. Well fragmented with combination of 200 and 365 ?m thulium superpulse laser fiber was into mostly sand and very small fragments smaller than the laser fiber tip. A lot of sand flushed from the system. Stent left indwelling. Brief History: Ms. Gracia is a very pleasant 66-year-old white female recently diagnosed with a large cluster of stones in the left lower pole calyx having passed multiple small stones since that diagnosis. We reviewed her options which would include continued conservative management in hopes of spontaneously clearing the stones, ESWL, or endoscopy, the latter with or without stent. Ultimately after detailed [id number] conversation we elected to proceed with endoscopic approach anticipating postoperative stent placement. We also reviewed the possibility of difficult access to the kidney and if that was the case a staged approach with stenting for passive dilation followed by repeat ureteroscopy. Procedure: After routine preoperative evaluation examination and obtaining of informed consent she was taken to the operating suite on 01/12/2022 where general anesthesia was administered without difficulty after appropriate timeout was performed, SCDs confirmed to be functioning, preoperative antibiotics administered, beta-kurt protocol confirmed. Prepped and draped in usual sterile fashion in dorsolithotomy position paying careful attention to avoiding pressure points. 21 Malagasy cystoscope with 30 degree lens was introduced into the urethra meatus and advanced into the bladder under videoscopy. The bladder was systematically examined. No stones were seen. An 8 Malagasy cone-tip catheter was intubated into the left ureteral orifice for left retrograde ureteropyelogram: Normal course and caliber of the ureter. Pyelocalyceal system was normal except for filling defects consistent with the 100s of small stones identified on CT as well as prior KUBs in the area of the lower pole calyx. Flexible tip guidewire was then advanced up the left ureter. The distal ureter was then dilated with a 15 Malagasy 4 cm balloon with no waist. A second guidewire was then passed. The first wire was secured to the drapes as a safety wire and the second wire was utilized as a working wire. Flexible ureteroscope was then passed over the working wire up into the kidney. Kidney was inspected and the calyx in the lower pole with the stones was confirmed to be accessible. The wire was replaced and then a 38 cm ureteral access sheath was passed over the working wire to just below the UPJ Scope was then passed through the sheath into the renal pelvis. The pyelocalyceal system was carefully inspected and appeared all the stones to be in the lower pole. A combination of 200 ?m and 365 ?m thulium superpulse laser fibers were utilized to fragment these 100s of small stones into mostly sand and some very small particles. Multiple stones migrated into other calyces than the original lower pole calyx and these were identified and treated in these calyces. A large amount of the sand was flushed through the scope. On final inspection both fluoroscopically and endoscopically I could find no additional fragments of any consequence. This was a tedious procedure but went very well. The ureteral access sheath was backed down to the hub of the scope and the ureter was carefully inspected as the scope was removed. The ureter appeared to be in good shape. It was decided to leave a stent for further passive dilation to help facilitate passage of the remaining small fragments. The cystoscope was then backloaded over the safety wire and a 6 Malagasy by 28 cm double-pigtail stent was advanced over the guidewire through the cystoscope into appropriate position as confirmed via fluoroscopy and cystoscopy. Bladder was drained. Procedure was completed. She tolerated procedure well without complications and was awakened in the operating room and returned to the recovery room in stable condition. PLANS: 1. Anticipate discharge from outpatient surgery 2. Follow-up in approximately 2 weeks with KUB likely stent removal 3. She is to strain her urine 4. I reviewed my out-of-town schedule at the end of this week and encouraged her to call prior to that time if she has any concerns or questions. Reviewed availability of nurse practitioner in my absence
[2022-01-12] MEDS: iohexol 300 mg/mL 50 mL Btl (OR ONLY) XX (07:35)
[2022-01-12] MEDS: ondansetron 2 mg/ML SDV 2 mL 4 MG IVP (09:49)
[2022-01-12] MEDS: oxyCODONE 5 mg IR Tab/Cap PO (10:26)
--- NOTE | 2022-01-12 12:47 | P.ANESASSM_ITS ---
Pre-Anesthetic Assessment Height/Weight: Height 1.7 m Weight 85.275 kg Temp Pulse Resp BP Pulse Ox 97.5 F L 50 L 18 132/56 99 01/12/22 11:10 01/12/22 11:10 01/12/22 11:10 01/12/22 11:10 01/12/22 11:10 Preop Diagnosis: Multiple left renal calculi Operation Date: 01/12/22 07:00 Proposed Procedures p CYSTOSCOPY LEFT RETROGRADE URETEROSCOPY RENOSCOPY LASER STENT 11317 MODIFIER 26 70631,N20.1(Not Applicable) - Craig Burnett MD s Retrograde Pyelogram(Left) - Craig Burnett MD s Ureteroscopy(Left) - Craig Burnett MD s Laser Lithotripsy(Left) - Craig Burnett MD s Ureteral Stent Placement(Left) - Craig Burnett MD Familial anesthetic complications: None Was Beta Kadie taken within 24 hours: N/A Was Clonidine taken within 24 hours: N/A Last intake: Intake Last Liquid Date 01/11/22 Last Liquid Time 10:15 Last Solid Date 01/11/22 Last Solid Time 22:15 Social No alcohol and No tobacco Exam alert, oriented x 3, clear to auscultation bilaterally and regular rate & rhythm Airway Submandibular: within normal limits Cervical ROM: within normal limits Mallampati: Class II Dentition: full Pulmonary Asthma CV/HEM Hypertension GI Gastroesophageal Reflux Disease Metabolic Thyroid Disease Musc/skel Lower Back Pain and Osteoarthritis/DJD Anesthetic Plan ASA status: 2 Anesthesia: General Medications/Allergies Home Medications Medication Instructions Recorded Confirmed Last Taken Type gabapentin 300 mg capsule 300 mg PO BID@11/20/19 01/12/22 01/11/22 16:00 History nitroglycerin 0.4 mg sublingual 0.4 mg SUBLINGUAL Q5M PRN 11/20/19 01/09/22 Unknown History tablet accomadative orthotic #1 ea 10/16/20 01/07/22 Unknown Rx supinator to the right ankle #1 ea 10/16/20 01/07/22 Unknown Rx mecobalamin (vitamin B12) 5,000 mcg PO DAILY tab 02/05/21 01/07/22 01/11/22 History mcg disintegrating tablet furosemide 20 mg tablet 40 mg PO DAILY PRN #60 tab 03/11/21 01/09/22 Unknown Rx tizanidine 4 mg tablet 4 mg PO Q8H PRN #90 tab 03/25/21 01/09/22 Unknown Rx oxycodone 5 mg tablet 2.5 mg PO Q6H PRN #8 tab 04/01/21 01/09/22 Unknown Rx pramipexole 0.5 mg tablet See Rx Instructions .ROUTE 09/03/21 01/12/22 01/11/22 Rx .COMPLEX 30 Days #120 tab levothyroxine 175 mcg tablet 175 mcg PO QAM 90 Days #90 tab 11/04/21 01/12/22 01/11/22 Rx hydrocodone 5 mg-acetaminophen 325 1 tab PO Q6H PRN #25 tab 11/13/21 01/09/22 Unknown Rx mg tablet ondansetron HCl 4 mg tablet 4 mg PO Q6H PRN #20 tab 11/13/21 01/12/22 01/11/22 Rx pantoprazole 40 mg tablet,delayed 40 mg PO QPM 90 Days #90 tab 11/21/21 01/12/22 01/11/22 Rx release albuterol sulfate 90 mcg/actuation 2 puff INHALATION Q6H PRN #8.5 g 12/10/21 01/09/22 Unknown Rx aerosol inhaler (Ventolin HFA) tamsulosin 0.4 mg capsule (Flomax) 0.4 mg PO DAILY #7 cap 01/01/22 01/12/22 01/11/22 Rx potassium citrate 10 mEq (1,080 10 meq PO BID #60 tab 01/12/22 Unknown Rx mg) tablet,extended release Allergies Allergy/AdvReac Type Severity Reaction Status Date / Time nickel Allergy Severe skin Verified 01/07/22 08:52 lesions, issues with Knee implant, pain latex Allergy Unknown Verified 01/07/22 08:52 lisinopril Allergy ADR-Cough Verified 01/07/22 08:52 metformin Allergy nausea and Verified 01/07/22 08:52 hives sulfamethoxazole Allergy hives and Verified 01/07/22 08:52 [From Bactrim] irritation trimethoprim [From Bactrim] Allergy hives and Verified 01/07/22 08:52 irritation NSAIDS (Non-Steroidal AdvReac Mild ADR-Gastrointestinal Verified 01/07/22 08:52 Anti-Inflamma Upset [facility] Anesthesia Medical History Arthritis of both knees Chronic knee pain after total replacement of both knee joints Diabetes mellitus Encounter for health education History of basal cell carcinoma History of revision of total replacement of left knee joint (~2017) Hypersensitivity reaction Hypertension Mechanical complication of prosthetic knee implant Morbid obesity Nickel allergy, current reaction Renal calculus, left Urinary tract infection Yeast vaginitis Surgical History History of bilateral knee replacement History of colonoscopy (~2017) History of esophagogastroduodenoscopy (EGD) (~2017) History of Gen fundoplication (~2010) History of total bilateral knee replacement S/P gastric bypass Social History Smoking and tobacco status: never smoked Alcohol intake: never Marital status: Current occupational status: retired History of recent travel: No Female Reproductive History Spontaneous abortions: No Data Anesthesia Cardiac Studies: Echocardiogram Ultrasound 04/29/20
--- NOTE | 2022-01-12 15:00 | ANE.PACU2 ---
Inpatient post-anesthesia follow up: Airway intact: Yes Vital signs: Temperature 97.5 F Pulse Rate 50 Respiratory Rate 18 Blood Pressure 132/56 Pulse Oximetry 99 Oxygen Delivery Me thod Room Air Oxygen Flow Rate 6 Fraction of Inspir ed Oxygen Hydration adequate: Yes Nausea and vomiting: No Pain level: 2 Mental status: Baseline
[2022-01-15 22:33] LABS: Stone Source LEFT URETER
== END 2022-01-12 11:05 | disposition home or self-care (01) ==
PROVIDERS: PCP Family Medicine; Visit Provider Urology
PROC: 0TJB8ZZ Inspection of Bladder, Via Natural or Artificial Opening Endoscopic (ICD-10-PCS; CPT 52000; principal; 2022-01-12 07:00)
PROC: (CPT 74420; 2022-01-12 07:00)
PROC: 0TJ98ZZ Inspection of Ureter, Via Natural or Artificial Opening Endoscopic (ICD-10-PCS; CPT 52351; 2022-01-12 07:00)
PROC: (CPT 52356; 2022-01-12 07:00)
PROC: (CPT 50605; 2022-01-12 07:00)
DX: N20.0 Calculus of kidney (principal); I10 Essential (primary) hypertension; K21.9 Gastro-esophageal reflux disease without esophagitis; E11.9 Type 2 diabetes mellitus without complications; Z98.84 Bariatric surgery status
CPT/HCPCS: 52356; 74018; 76000; 82365; 88300; C2625; J1100; J1200; J1956; J2370; J2405; J2704; J2710; J3010; J3490; J7030

== ENCOUNTER → 2022-01-15 13:22 | Outpatient (BNVA) | payer MEDICARE, SELFPAY | PROVIDERS: PCP Family Medicine; Visit Provider Family Medicine | DX: N20.0 Calculus of kidney (principal); N20.1 Calculus of ureter; N39.0 Urinary tract infection, site not specified; L02.92 Furuncle, unspecified; K80.20 Calculus of gallbladder without cholecystitis without obstruction; M51.36 Other intervertebral disc degeneration, lumbar region; J45.909 Unspecified asthma, uncomplicated; R31.0 Gross hematuria | CPT/HCPCS: 81000; 87086 ==

== ENCOUNTER 2022-01-26 06:00 | Outpatient (RCR) | payer MEDICARE, SELFPAY | END 2022-02-25 23:59 | disposition home or self-care (01) | LOC: MPT 06:00 | PROVIDERS: PCP Family Medicine; Referring Provider Family Medicine; Visit Provider Family Medicine | DX: I87.2 Venous insufficiency (chronic) (peripheral) (principal); E11.622 Type 2 diabetes mellitus with other skin ulcer | CPT/HCPCS: 97110; 97140; G0283 ==

== ENCOUNTER 2022-01-26 15:33 | Outpatient (CLI) | payer MEDICARE, SELFPAY ==
--- NOTE | 2022-01-26 15:15 | XR_ITS ---
WS: [id number] KUB, AP view, 01/26/2022. Clinical Data: LEFT URETERAL STONE Comparison: KUB, 01/12/2022. Findings: No abnormal intraabdominal masses are seen. There is no dilatated small bowel or evidence of obstruct ion. A left ureteral stent is in good position. There may be small calcifications overlying the inferior p ole of the left kidney. There is surgical material in the left upper quadrant. There is a levoscolios is. There is a clip in the true pelvis. XR/XR KUB [id number] Impression: 1. Probable left ureteral calculi. 2. Satisfactory position left ureteral stent.
== END 2022-01-26 15:34 | disposition home or self-care (01) ==
LOC: RAD 15:34
PROVIDERS: PCP Family Medicine; Visit Provider Urology
DX: Z96.0 Presence of urogenital implants; N20.2 Calculus of kidney with calculus of ureter
CPT/HCPCS: 52310; 74018; 81003

== ENCOUNTER → 2022-02-12 11:51 | Outpatient (BNVA) | payer MEDICARE, SELFPAY | PROVIDERS: PCP Family Medicine; Visit Provider Nurse Practitioner Family | DX: K91.2 Postsurgical malabsorption, not elsewhere classified (principal); Z79.899 Other long term (current) drug therapy | CPT/HCPCS: 82607; 82652; 82728; 82747; 83735; 84590 ==

== ENCOUNTER 2022-02-26 06:00 | Outpatient (RCR) | payer MEDICARE, SELFPAY | END 2022-03-27 23:59 | disposition home or self-care (01) | LOC: MPT 06:00 | PROVIDERS: PCP Family Medicine; Visit Provider Family Medicine | DX: M25.562 Pain in left knee (principal); M25.561 Pain in right knee; G89.29 Other chronic pain | CPT/HCPCS: 97110; 97140; G0283 ==

== ENCOUNTER → 2022-04-16 10:58 | Outpatient (BNVA) | payer MEDICARE, SELFPAY | PROVIDERS: PCP Family Medicine; Visit Provider Family Medicine | DX: E03.9 Hypothyroidism, unspecified (principal); E11.59 Type 2 diabetes mellitus with other circulatory complications; I10 Essential (primary) hypertension | CPT/HCPCS: 80048; 83036; 84439; 84443; 84481 ==

== ENCOUNTER 2022-05-06 12:21 | Outpatient (CLI) | payer MEDICARE, SELFPAY ==
--- NOTE | 2022-05-06 12:53 | XR_ITS ---
WS: [id number] KUB, AP view, 05/06/2022 Clinical Data: N20.0 - Calculus of kidney Comparison: KUB, 01/26/2022 Findings: The left ureteral stent has been removed. No abnormal intraabdominal masses or calcifications are seen. There is no dilatated small bowel or ev idence of obstruction. There is a large amount of small bowel and colon gas obscuring detail over both kidneys. The multiple surgical clips remain in the same position. There is a levoscoliosis. XR/XR KUB [id number] Impression: Removal of left ureteral stent.
== END 2022-05-06 12:22 | disposition home or self-care (01) ==
LOC: RAD 12:23
PROVIDERS: PCP Family Medicine; Visit Provider Urology
DX: N20.0 Calculus of kidney (principal)
CPT/HCPCS: 74018; 81003; 99213

== ENCOUNTER → 2022-05-18 10:07 | Outpatient (BNVA) | payer MEDICARE, SELFPAY | PROVIDERS: PCP Family Medicine; Visit Provider Family Medicine | DX: M25.562 Pain in left knee (principal) | CPT/HCPCS: 73562 ==

== ENCOUNTER → 2022-07-13 10:18 | Outpatient (BNVA) | payer MEDICARE, SELFPAY | PROVIDERS: PCP Family Medicine; Visit Provider Podiatrist Foot & Ankle Surgery | DX: L60.3 Nail dystrophy (principal); L60.0 Ingrowing nail; M77.52 Other enthesopathy of left foot and ankle; M21.622 Bunionette of left foot; Q82.8 Other specified congenital malformations of skin; M67.40 Ganglion, unspecified site | CPT/HCPCS: 11750 ==

== ENCOUNTER 2022-07-16 14:33 | Emergency (ER) | payer MEDICARE, SELFPAY ==
[2022-07-16] VITALS (21 sets, daily range): BP systolic 112–147; BP diastolic 36–76; PULSE 75–96; RESP 15–29; O2SAT 90–96; BMI 28.5
--- NOTE | 2022-07-16 14:53 | ECG_ITS ---
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 Measurements Intervals [place] Rate: 81 P: 55 LA: 160 QRS: -41 QRSD: 95 T: 43 QT: 332 QTc: 386 Interpretive Statements SINUS RHYTHM LEFT AXIS DEVIATION [QRS AXIS < -30] Compared to ECG 01/01/2022 17:30:20 Sinus bradycardia no longer present Electronically Signed On 07-16-2022 17:01:29 GRID OPERATOR by Emil Lopez M.D. [id number] f
--- NOTE | 2022-07-16 15:08 | XRR_ITS ---
PROCEDURE INFORMATION: Exam: XR Chest Exam date and time: 07/16/2022 3:13 PM Age: 67 years old Clinical indication: Pain; Other: Sharp, reproducible; Additional info: Chest pain TECHNIQUE: Imaging protocol: Radiologic exam of the chest. Views: 1 view. COMPARISON: CR XR chest 1V portable [id number] 11/13/2021 2:42 AM FINDINGS: Lungs: No consolidation. Pleural spaces: No pleural effusion. No pneumothorax. Heart/Mediastinum: No cardiomegaly. Bones/joints: Visualized osseous structures are intact. XR/XR chest 1V portable [id number] IMPRESSION: No acute findings.
[2022-07-16] MEDS: aspirin 81 mg Chew Tablet 324 MG PO (15:12)
[2022-07-16 15:20] LABS: Basophils # 0.1 10^3/uL (0.0-0.1); Basophils % 0.3 %; Eosinophils # 0.1 10^3/uL (0.0-0.8); Eosinophils % 0.6 %; Hematocrit 41.6 % (37.0-47.0); Hemoglobin 13.3 g/dL (11.5-15.3); Lymphocytes # 1.6 10^3/uL (0.8-4.8); Lymphocytes % 10.6 %; Mean Corpuscular Hemoglobin 30.3 pg (28.0-34.0); Mean Corpuscular Volume 94.8 fl (81-99); Mean Platelet Volume 10.9 fL (7.4-10.4); Monocytes # 1.3 10^3/uL (0.2-0.9); Monocytes % 8.3 %; Neutrophils # 12.07 10^3/uL (1.8-7.7); Neutrophils % 79.7 %; Nucleated Red Blood Cells % 0 %; Platelet Count 257 10^3/cmm (130-400); Red Blood Count 4.39 10^6/uL (4.1-5.3); Red Cell Distribution Width 12.9 % (12.1-15.1); White Blood Count 15.1 10^3/uL (4.0-10.0)
[2022-07-16 15:55] LABS: Troponin(5th) Baseline 10 ng/L (0-10)
--- NOTE | 2022-07-16 16:58 | W.ED.CHESTPA ---
Documented by User: Kvng Burr DO 07/28/22 17:33 HPI - Chest Pain General: Chief Complaint: Chest Pain Stated Complaint: SHARP REPRODUCIBLE CP/ SOB Time Seen by Provider: 07/16/22 15:07 Source: patient Mode of arrival: ambulatory History of Present Illness: 67-year-old female presents to the emergency room with chest pain on the right side of her chest rating towards her neck and her arm. It began earlier today while she was at home pain is somewhat reproducible. She got oxygen fentanyl in route did not really significantly change her symptoms she had taken 3 sublingual nitro at home with no relief she still has some discomfort now. She has a history of previous blood clots but those are related to being postop from knee replacement she is not currently on any anticoagulants. She not had any fever sweats or chills recently no cough or flulike symptoms. She still has some mild chest discomfort that is reproducible with palpation and deep inspiration on the right side MD complaint: chest pain Onset (ago): hour(s) Timing of current episode: episodic Onset: during rest Pain location: right chest Pain radiation: right arm and neck Quality: tightness and aching Relieving factors: nothing Exacerbating factors: nothing Associated symptoms: Deny abdominal pain, diaphoresis, dyspnea, fever(s), leg edema, nausea, palpitations, sense of impending doom, syncope or vomiting Treatment prior to arrival: none Review of Systems Const: Denies: fever(s), chills, fatigue, malaise or diaphoresis ENMT: Denies: throat pain, ear or mastoid pain, nasal discharge or nasal congestion Card: Denies: chest pain, palpitations or syncope Resp: Denies: dyspnea GI: Denies: abdominal pain, nausea or vomiting : Denies: flank pain, difficulty voiding, dysuria, urinary frequency or urinary urgency Musc: Denies: neck pain or back pain Skin/Breast: Denies: rash or pruritus Neuro: Denies: headache(s) PFSH ED PFSH: Medical History Arthritis of both knees Chronic knee pain after total replacement of both knee joints Diabetes mellitus Encounter for health education History of basal cell carcinoma History of revision of total replacement of left knee joint (~2018) Hypersensitivity reaction Hypertension Mechanical complication of prosthetic knee implant Morbid obesity Nickel allergy, current reaction Renal calculus, left Urinary tract infection Yeast vaginitis Surgical History History of bilateral knee replacement History of colonoscopy (~2017) History of esophagogastroduodenoscopy (EGD) (~2017) History of Gen fundoplication (~2010) History of total bilateral knee replacement S/P gastric bypass Status post laser lithotripsy of ureteral calculus Social History Smoking and tobacco status: never smoked Alcohol intake: never Marital status: Current occupational status: retired History of recent travel: No Female Reproductive History: Spontaneous abortions: No Physical Exam Const: COMMON NORMALS: no acute distress GENERAL APPEARANCE: cooperative and comfortable ORIENTATION/CONSCIOUSNESS: Yes awake, Yes oriented to person, Yes oriented to place and Yes oriented to time HENMT: COMMON NORMALS: normocephalic, atraumatic and hearing grossly normal bilaterally HEAD & SCALP: normocephalic and atraumatic Chest: CHEST: Yes tenderness (Right anterior chest wall) Resp: COMMON NORMALS: normal respiratory effort, No retractions, No use of accessory muscles and clear to auscultation bilaterally AUSCULTATION: clear to auscultation bilaterally Cardio: COMMON NORMALS: regular rate, regular rhythm and No murmurs present (Cardio) RATE: regular rate RHYTHM: regular rhythm GI: COMMON NORMALS: Soft to palpation and No hepatosplenomegaly present AUSCULTATION: Yes normoactive bowel sounds PALPATION: Yes Soft to palpation, No Tenderness to palpation present (GI), No Guarding due to palpation present (GI) and Yes No hepatosplenomegaly present Extremity: COMMON NORMALS: normal to inspection, capillary refill normal, no clubbing, cyanosis or edema, no calf tenderness and no pedal edema Neuro: SENSORIUM/ORIENTATION: Yes oriented to person, Yes oriented to place and Yes oriented to time Skin: COMMON NORMALS: no rashes or lesions noted GENERAL SKIN EXAM: no rashes or lesions noted Course Vital Signs: Vital signs: Vital Signs Pulse Rate 96 07/16/22 21:25 Respiratory Rate 17 07/16/22 21:25 Blood Pressure 123/68 07/16/22 21:25 Pulse Oximetry 93 07/16/22 21:25 Oxygen Delivery Me thod 07/16/22 16:00 MDM - Chest Pain Medical Decision Making Care signed out to Dr. Moore at change of shift. See final notes for diagnosis and disposition. Patient presents here with chest pain that is right-sided and atypical in nature CT angio here is normal troponins are normal as well. She is to follow-up with her senior environmental scientist return if worsening she understands agrees to plan. Lab Data 07/16/22 15:04 07/16/22 16:24 Radiology Impressions Chest X-Ray 07/16/22 15:08 IMPRESSION: No acute findings. Chest CTA 07/16/22 18:56 IMPRESSION: 1. Negative for pulmonary embolism. 2. Debris noted within a distal bronchiole the inferior medial segment of the right upper lobe with corresponding atelectasis. Additional areas of curvilinear atelectasis or scarring at the lingula. Laboratory Results WBC 15.1 10^3/uL (4.0-10.0) H 07/16/22 15:04 RBC 4.39 10^6/uL (4.1-5.3) 07/16/22 15:04 Hgb 13.3 g/dL (11.5-15.3) 07/16/22 15:04 Hct 41.6 % (37.0-47.0) 07/16/22 15:04 MCV 94.8 fl (81-99) 07/16/22 15:04 MCH 30.3 pg (28.0-34.0) 07/16/22 15:04 MCHC 32.0 g/dL (30.0-36.0) 07/16/22 15:04 RDW 12.9 % (12.1-15.1) 07/16/22 15:04 Plt Count 257 10^3/cmm (130-400) 07/16/22 15:04 MPV 10.9 fL (7.4-10.4) H 07/16/22 15:04 Neut % (Auto) 79.7 % 07/16/22 15:04 Lymph % (Auto) 10.6 % 07/16/22 15:04 Taney % (Auto) 8.3 % 07/16/22 15:04 Eos % (Auto) 0.6 % 07/16/22 15:04 Baso % (Auto) 0.3 % 07/16/22 15:04 Neut # (Auto) 12.07 10^3/uL (1.8-7.7) H 07/16/22 15:04 Lymph # (Auto) 1.6 10^3/uL (0.8-4.8) 07/16/22 15:04 Taney # (Auto) 1.3 10^3/uL (0.2-0.9) H 07/16/22 15:04 Eos # (Auto) 0.1 10^3/uL (0.0-0.8) 07/16/22 15:04 Baso # (Auto) 0.1 10^3/uL (0.0-0.1) 07/16/22 15:04 Nucleated RBC % (auto) 0 % 07/16/22 15:04 Nucleated RBCs # 0.0 /100WBC 07/16/22 15:04 D-Dimer 0.79 ug/mIFEU (0-0.59) H 07/16/22 17:25 Sodium 138 mmol/L (136-145) 07/16/22 16:24 Potassium 3.8 mmol/L (3.5-5.1) 07/16/22 16:24 Chloride 101 mmol/L (98-107) 07/16/22 16:24 Carbon Dioxide 31 mmol/L (22-29) H 07/16/22 16:24 Anion Gap 9.8 (5-19) 07/16/22 16:24 BUN 12 mg/dL (8-23) 07/16/22 16:24 Creatinine 0.6 mg/dL (0.5-0.9) 07/16/22 16:24 GFR Calculation 99.1 mL/min (90-130) 07/16/22 16:24 Glucose 104 mg/dL (65-115) 07/16/22 16:24 Calculated Osmolality 286 mOsm/kg (285-295) 07/16/22 16:24 Calcium 9.4 mg/dL (8.5-10.5) 07/16/22 16:24 Total Bilirubin 0.6 mg/dL (0.15-1.2) 07/16/22 16:24 AST 16 U/L (0-32) 07/16/22 16:24 ALT 18 U/L (0-33) 07/16/22 16:24 Alkaline Phosphatase 96 U/L (35-105) 07/16/22 16:24 Troponin T Baseline 10 ng/L (0-10) 07/16/22 15:04 Troponin T 120 Minute 14.42 ng/L (0-10) H 07/16/22 17:44 Delta Troponin T 4.42 ABS# (0-10) 07/16/22 17:44 Troponin T Hi Sens 6Hr 11.84 ng/L (0-10) H 07/16/22 19:53 Troponin T Hi Sens 6Hr Delta 1.84 ng/L (0-12) 07/16/22 19:53 Total Protein 6.5 g/dL (6.6-8.7) L 07/16/22 16:24 Albumin 3.7 g/dL (3.5-5.2) 07/16/22 16:24 Globulin 2.8 g/dL (1.3-4.6) 07/16/22 16:24 Discharge Plan Discharge Patient Disposition: Home Clinical Impression: Chest pain Condition: Stable Prescriptions: New hydrocodone-acetaminophen 5-325 mg tablet 1 tab PO Q6H PRN (Reason: pain) Qty: 14 0RF No Action (DME) supinator to the right ankle See Rx Instructions .Route .MEDSUPPLY Qty: 1 0RF Rx Instructions: As directed (DME) accomadative orthotic See Rx Instructions .Route .MEDSUPPLY Qty: 1 0RF Rx Instructions: As directed mecobalamin (vitamin B12) 5,000 mcg tablet,disintegrating 5,000 mcg PO DAILY benzonatate 100 mg capsule 100 mg PO BID PRN (Reason: cough) 14 Days Qty: 28 0RF dextromethorphan polistirex 30 mg/5 mL suspension,extended rel 12 hr 10 ml PO Q12H PRN (Reason: cough) Qty: 89 0RF duloxetine 20 mg capsule,delayed release(DR/EC) 20 mg PO BID 30 Days Qty: 60 2RF furosemide 20 mg tablet 40 mg PO DAILY PRN (Reason: edema) Qty: 60 5RF albuterol sulfate [Ventolin HFA] 90 mcg/actuation HFA aerosol inhaler 2 puff inhalation Q6H PRN (Reason: shortness of breath or wheezing) Qty: 8.5 5RF tizanidine 4 mg tablet 4 mg PO Q8H PRN (Reason: muscle spasticity) Qty: 90 2RF Rx Instructions: 340B fluorouracil 5 % cream 1 applic topical BID 42 Days Qty: 40 0RF Rx Instructions: Apply thin film to nasal tip twice daily for 6 weeks 340B potassium citrate 10 mEq (1,080 mg) tablet extended release 10 meq PO BID Qty: 60 12RF Rx Instructions: 340B levothyroxine 175 mcg tablet 175 mcg PO QAM 90 Days Qty: 90 1RF nitroglycerin 0.4 mg Tablet, Sublingual 0.4 mg SUBLINGUAL Q5M PRN (Reason: Chest Pain) potassium chloride 10 mEq tablet extended release 10 meq PO DAILY PRN (Reason: w/lasix) pramipexole 0.5 mg tablet 1 mg PO BID pantoprazole 40 mg tablet,delayed release (DR/EC) 40 mg PO QAM gabapentin 300 mg capsule 300 mg PO BID amoxicillin-pot clavulanate 875-125 mg tablet 1 tab PO BID Qty: 20 0RF ondansetron HCl 4 mg tablet 4 mg PO Q6H PRN (Reason: nausea and vomiting) Qty: 20 0RF Discharge Orders: Discharge ED (Routine); Ordered 07/16/22 Ordered By: Jacinta Moore Referrals: Emil Lopez M.D [Physician] - 1-3 days Re Nathan MD [Primary Care Provider] - Discharge Diet: Advance as tolerated Discharge Activity: Resume usual activity Patient Instructions: Chest Pain (ED) Coding Level of Care Code ED Lieutenant Ballistics for Chg Fwd Documented by User: Jacinta Moore MD 07/16/22 21:24 HPI - Chest Pain General: Chief Complaint: Chest Pain Stated Complaint: SHARP REPRODUCIBLE CP/ SOB Time Seen by Provider: 07/16/22 15:07 PFSH ED PFSH: Medical History Arthritis of both knees Chronic knee pain after total replacement of both knee joints Diabetes mellitus Encounter for health education History of basal cell carcinoma History of revision of total replacement of left knee joint (~2017) Hypersensitivity reaction Hypertension Mechanical complication of prosthetic knee implant Morbid obesity Nickel allergy, current reaction Renal calculus, left Urinary tract infection Yeast vaginitis Surgical History History of bilateral knee replacement History of colonoscopy (~2017) History of esophagogastroduodenoscopy (EGD) (~2017) History of Gen fundoplication (~2010) History of total bilateral knee replacement S/P gastric bypass Status post laser lithotripsy of ureteral calculus Social History Smoking and tobacco status: never smoked Alcohol intake: never Marital status: Current occupational status: retired History of recent travel: No Course Vital Signs: Vital signs: Vital Signs Pulse Rate 96 07/16/22 21:25 Respiratory Rate 17 07/16/22 21:25 Blood Pressure 123/68 07/16/22 21:25 Pulse Oximetry 93 07/16/22 21:25 Oxygen Delivery Me thod 07/16/22 16:00 MDM - Chest Pain Medical Decision Making Patient presents here with chest pain that is right-sided and atypical in nature CT angio here is normal troponins are normal as well. She is to follow-up with her senior environmental scientist return if worsening she understands agrees to plan. Lab Data 07/16/22 15:04 07/16/22 16:24 Radiology Impressions Chest X-Ray 07/16/22 15:08 IMPRESSION: No acute findings. Chest CTA 07/16/22 18:56 IMPRESSION: 1. Negative for pulmonary embolism. 2. Debris noted within a distal bronchiole the inferior medial segment of the right upper lobe with corresponding atelectasis. Additional areas of curvilinear atelectasis or scarring at the lingula. Laboratory Results WBC 15.1 10^3/uL (4.0-10.0) H 07/16/22 15:04 RBC 4.39 10^6/uL (4.1-5.3) 07/16/22 15:04 Hgb 13.3 g/dL (11.5-15.3) 07/16/22 15:04 Hct 41.6 % (37.0-47.0) 07/16/22 15:04 MCV 94.8 fl (81-99) 07/16/22 15:04 MCH 30.3 pg (28.0-34.0) 07/16/22 15:04 MCHC 32.0 g/dL (30.0-36.0) 07/16/22 15:04 RDW 12.9 % (12.1-15.1) 07/16/22 15:04 Plt Count 257 10^3/cmm (130-400) 07/16/22 15:04 MPV 10.9 fL (7.4-10.4) H 07/16/22 15:04 Neut % (Auto) 79.7 % 07/16/22 15:04 Lymph % (Auto) 10.6 % 07/16/22 15:04 Taney % (Auto) 8.3 % 07/16/22 15:04 Eos % (Auto) 0.6 % 07/16/22 15:04 Baso % (Auto) 0.3 % 07/16/22 15:04 Neut # (Auto) 12.07 10^3/uL (1.8-7.7) H 07/16/22 15:04 Lymph # (Auto) 1.6 10^3/uL (0.8-4.8) 07/16/22 15:04 Taney # (Auto) 1.3 10^3/uL (0.2-0.9) H 07/16/22 15:04 Eos # (Auto) 0.1 10^3/uL (0.0-0.8) 07/16/22 15:04 Baso # (Auto) 0.1 10^3/uL (0.0-0.1) 07/16/22 15:04 Nucleated RBC % (auto) 0 % 07/16/22 15:04 Nucleated RBCs # 0.0 /100WBC 07/16/22 15:04 D-Dimer 0.79 ug/mIFEU (0-0.59) H 07/16/22 17:25 Sodium 138 mmol/L (136-145) 07/16/22 16:24 Potassium 3.8 mmol/L (3.5-5.1) 07/16/22 16:24 Chloride 101 mmol/L (98-107) 07/16/22 16:24 Carbon Dioxide 31 mmol/L (22-29) H 07/16/22 16:24 Anion Gap 9.8 (5-19) 07/16/22 16:24 BUN 12 mg/dL (8-23) 07/16/22 16:24 Creatinine 0.6 mg/dL (0.5-0.9) 07/16/22 16:24 GFR Calculation 99.1 mL/min (90-130) 07/16/22 16:24 Glucose 104 mg/dL (65-115) 07/16/22 16:24 Calculated Osmolality 286 mOsm/kg (285-295) 07/16/22 16:24 Calcium 9.4 mg/dL (8.5-10.5) 07/16/22 16:24 Total Bilirubin 0.6 mg/dL (0.15-1.2) 07/16/22 16:24 AST 16 U/L (0-32) 07/16/22 16:24 ALT 18 U/L (0-33) 07/16/22 16:24 Alkaline Phosphatase 96 U/L (35-105) 07/16/22 16:24 Troponin T Baseline 10 ng/L (0-10) 07/16/22 15:04 Troponin T 120 Minute 14.42 ng/L (0-10) H 07/16/22 17:44 Delta Troponin T 4.42 ABS# (0-10) 07/16/22 17:44 Troponin T Hi Sens 6Hr 11.84 ng/L (0-10) H 07/16/22 19:53 Troponin T Hi Sens 6Hr Delta 1.84 ng/L (0-12) 07/16/22 19:53 Total Protein 6.5 g/dL (6.6-8.7) L 07/16/22 16:24 Albumin 3.7 g/dL (3.5-5.2) 07/16/22 16:24 Globulin 2.8 g/dL (1.3-4.6) 07/16/22 16:24 Discharge Plan Discharge Patient Disposition: Home Clinical Impression: Chest pain Condition: Stable Prescriptions: New hydrocodone-acetaminophen 5-325 mg tablet 1 tab PO Q6H PRN (Reason: pain) Qty: 14 0RF No Action (DME) supinator to the right ankle See Rx Instructions .Route .MEDSUPPLY Qty: 1 0RF Rx Instructions: As directed (DME) accomadative orthotic See Rx Instructions .Route .MEDSUPPLY Qty: 1 0RF Rx Instructions: As directed mecobalamin (vitamin B12) 5,000 mcg tablet,disintegrating 5,000 mcg PO DAILY benzonatate 100 mg capsule 100 mg PO BID PRN (Reason: cough) 14 Days Qty: 28 0RF dextromethorphan polistirex 30 mg/5 mL suspension,extended rel 12 hr 10 ml PO Q12H PRN (Reason: cough) Qty: 89 0RF duloxetine 20 mg capsule,delayed release(DR/EC) 20 mg PO BID 30 Days Qty: 60 2RF furosemide 20 mg tablet 40 mg PO DAILY PRN (Reason: edema) Qty: 60 5RF albuterol sulfate [Ventolin HFA] 90 mcg/actuation HFA aerosol inhaler 2 puff inhalation Q6H PRN (Reason: shortness of breath or wheezing) Qty: 8.5 5RF tizanidine 4 mg tablet 4 mg PO Q8H PRN (Reason: muscle spasticity) Qty: 90 2RF Rx Instructions: 340B fluorouracil 5 % cream 1 applic topical BID 42 Days Qty: 40 0RF Rx Instructions: Apply thin film to nasal tip twice daily for 6 weeks 340B potassium citrate 10 mEq (1,080 mg) tablet extended release 10 meq PO BID Qty: 60 12RF Rx Instructions: 340B levothyroxine 175 mcg tablet 175 mcg PO QAM 90 Days Qty: 90 1RF nitroglycerin 0.4 mg Tablet, Sublingual 0.4 mg SUBLINGUAL Q5M PRN (Reason: Chest Pain) potassium chloride 10 mEq tablet extended release 10 meq PO DAILY PRN (Reason: w/lasix) pramipexole 0.5 mg tablet 1 mg PO BID pantoprazole 40 mg tablet,delayed release (DR/EC) 40 mg PO QAM gabapentin 300 mg capsule 300 mg PO BID amoxicillin-pot clavulanate 875-125 mg tablet 1 tab PO BID Qty: 20 0RF ondansetron HCl 4 mg tablet 4 mg PO Q6H PRN (Reason: nausea and vomiting) Qty: 20 0RF Discharge Orders: Discharge ED (Routine); Ordered 07/16/22 Ordered By: Jacinta Moore Referrals: Emil Lopez M.D [Physician] - 1-3 days Re Nathan MD [Primary Care Provider] - Discharge Diet: Advance as tolerated Discharge Activity: Resume usual activity Patient Instructions: Chest Pain (ED) Coding Level of Care Code ED Lieutenant Ballistics for Bernie Colvin
[2022-07-16 17:00] LABS: Alanine Aminotransferase 18 U/L (0-33); Albumin Level 3.7 g/dL (3.5-5.2); Alkaline Phosphatase 96 U/L (35-105); Anion Gap 9.8 (5-19); Aspartate Amino Transferase 16 U/L (0-32); Blood Urea Nitrogen 12 mg/dL (8-23); Calcium 9.4 mg/dL (8.5-10.5); Carbon Dioxide 31 mmol/L (22-29); Chloride 101 mmol/L (98-107); Globulin 2.8 g/dL (1.3-4.6); Glomerular Filtration Rate 99.1 mL/min (90-130); Glucose 104 mg/dL (65-115); Osmolality Calculated 286 mOsm/kg (285-295); Potassium 3.8 mmol/L (3.5-5.1); Sodium 138 mmol/L (136-145); Total Bilirubin 0.6 mg/dL (0.15-1.2); Total Protein 6.5 g/dL (6.6-8.7)
--- NOTE | 2022-07-16 17:08 | ECG_ITS ---
[facility] Test Date: 2022-07-16 Pat Name: Radha Willis Department: Room: Gender: Female Wool Hanker: : 1955 Requested By: Kvng Brothers Order Number: [id number] Jackie MD: Emil Lopez M.D. Measurements Intervals [place] Rate: 74 P: 44 NM: 153 QRS: -41 QRSD: 100 T: 43 QT: 355 QTc: 394 Interpretive Statements SINUS RHYTHM LEFT AXIS DEVIATION [QRS AXIS < -30] Compared to ECG 07/16/2022 14:53:29 No significant changes Electronically Signed On 07-17-2022 14:43:49 PROTOTYPE MODEL MAKER by Emil Lopez M.D. [id number]
[2022-07-16 18:23] LABS: Troponin 5 2HR 14.42 ng/L (0-10)
[2022-07-16 18:24] LABS: Troponin 5 2HR Delta 4.42 ABS# (0-10)
[2022-07-16 18:52] LABS: D Dimer 0.79 ug/mIFEU (0-0.59)
--- NOTE | 2022-07-16 18:56 | CTR_ITS ---
PROCEDURE INFORMATION: Exam: CTA Chest With Contrast Exam date and time: 07/16/2022 8:45 PM Age: 67 years old Clinical indication: Pain and abnormal findings; Abnormal diagnostic tests; Elevated d-dimer; Right-sided; Prior surgery; Surgery type: Gastric bypass and fundoplication; Patient HX: C/O RT side chest pain with elevated d dimer. History of embolism. ; Additional info: SOB TECHNIQUE: Imaging protocol: Computed tomographic angiography of the chest with contrast. 3D rendering (Not supervised by radiologist): MIP and/or 3D reconstructed images were created by the technologist. Radiation optimization: All CT scans at this facility use at least one of these dose optimization techniques: automated exposure control; mA and/or kV adjustment per patient size (includes targeted exams where dose is matched to clinical indication); or iterative reconstruction. Contrast material: OMNI 350; Contrast volume: 55 ml; Contrast route: INTRAVENOUS (IV); COMPARISON: CR XR chest 1V portable [id number] 07/16/2022 3:13 PM RADIATION DOSE METRICS: Total DLP (mGy-cm): 197.57 FINDINGS: Pulmonary arteries: Normal. No pulmonary emboli. Aorta: No aortic aneurysm. No aortic dissection. Lungs: There is debris within a distal bronchial of the inferior medial segment of the right upper lobe with corresponding atelectasis. Posterior dependent atelectasis at the lung bases. Linear atelectasis or scarring at the lingula. No consolidation. No masses. Pleural spaces: No pneumothorax. No pleural effusion. Heart: No cardiomegaly. No pericardial effusion. Lymph nodes: No enlarged lymph nodes. Bones/joints: No acute fracture. Soft tissues: Unremarkable. CT/CT angio chest PE protcl [id number] IMPRESSION: 1. Negative for pulmonary embolism. 2. Debris noted within a distal bronchiole the inferior medial segment of the right upper lobe with corresponding atelectasis. Additional areas of curvilinear atelectasis or scarring at the lingula.
[2022-07-16] MEDS: ondansetron 2 mg/ML SDV 2 mL 4 MG IVP (19:15)
[2022-07-16] MEDS: HYDROmorphone 1 mg/mL INJ 1 mL 0.5 MG IVP (19:17)
--- NOTE | 2022-07-16 19:28 | PC.NURSE ---
patient resting in bed with side rails up x2. NAD noted. no needs voiced at this time.
[2022-07-16 20:25] LABS: Troponin 5 6HR 11.84 ng/L (0-10)
[2022-07-16 20:37] LABS: Troponin 5 6HR Delta 1.84 ng/L (0-12)
--- NOTE | 2022-07-16 20:48 | PC.NURSE ---
2040 - Patient taken to CT via stretcher with certified pharmacy tech.
[2022-07-16] MEDS: iohexol 350 mg/mL 500 mL Btl (per mL) IV (20:50)
--- NOTE | 2022-07-16 20:53 | PC.NURSE ---
patient returned from CT
--- NOTE | 2022-07-16 21:15 | ECG_ITS ---
[facility] Test Date: 2022-07-16 Pat Name: Radha Willis Department: Room: Gender: Female Eyelet Maker: : 1955 Requested By: Kvgn Brothers Order Number: [id number] Jackie MD: Emil Lopez M.D. Measurements Intervals [place] Rate: 79 P: 47 GA: 153 QRS: -41 QRSD: 97 T: 42 QT: 342 QTc: 394 Interpretive Statements SINUS RHYTHM LEFT AXIS DEVIATION [QRS AXIS < -30] Compared to ECG 07/16/2022 17:33:18 No significant changes Electronically Signed On 07-17-2022 14:43:12 CASTING AND CURING OPERATOR by Emil Lopez M.D. [id number]
[2022-07-16] MEDS: HYDROcodone-acetaminophen 5-325 mg Tablet 1 TAB PO (21:22)
--- NOTE | 2022-07-17 08:12 | DCPLANNER ---
Addendum entered by Ana Mccallum 08/12/22 08:05: Appointment was cancelled Addendum entered by Ana Mccallum 07/17/22 13:12: Patient has a follow up appointment scheduled for Friday, July 22, 2022 at 2:[address] [facility] will call patient with appointment information. Original Note: casework manager had message to schedule a follow up appointment for patient with cardiology. casework manager sent patients information to the front office staff at [facility]. patients information will be printed and reviewed. Clinic will call patient with appointment information.
== END 2022-07-16 21:44 | disposition home or self-care (01) ==
PROVIDERS: Family Medicine; Emergency Provider Emergency Medicine; PCP Family Medicine
DX: R07.9 Chest pain, unspecified (principal); E11.9 Type 2 diabetes mellitus without complications; I10 Essential (primary) hypertension
CPT/HCPCS: 36415; 71045; 71275; 80053; 84484; 85025; 85378; 93005; 96374; 96375; 99285; J1170; J2405; Q9967

== ENCOUNTER 2022-07-18 11:14 | Emergency (ER) | payer MEDICARE, SELFPAY ==
--- NOTE | 2022-07-18 11:17 | ED_ITS ---
HPI - General Adult General: Chief complaint: Shortness of Breath/Dyspnea Stated complaint: SOB, fever, chest pain Time Seen by Provider: 07/18/22 11:17 History of Present Illness: Ms. Gracia is a 67-year-old lady with history of DVT, PE, thyroid disorder, diabetes, hypertension, hyperlipidemia presenting to the emergency department for generalized illness. She reports onset of chest pain subacute on the in the chest which has been sharp and occasionally radiating. She presented to the ER and had negative evaluation at that time. She reports continued pain and mostly being concerned today because she got onset of cough starting last night with shortness of breath and productive green sputum. Additionally she endorses dyspnea on exertion and generalized malaise. 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 Density symptoms is moderate to severe. Course has persisted. Denies underlying lung disease history or smoking history. No other specific changes in health, exacerbating, or alleviating factors identified. Onset (ago): day(s) Location: chest Severity: moderate Quality: stabbing and sharp Pain Consistency: constant Relieving factors: none Exacerbating factors: movement Associated symptoms: Reports chest pain, cough, dyspnea, fevers/chills, malaise, short of breath and weakness Review of Systems General: Reports: 10 or more systems reviewed and unremarkable except in HPI and below Const: Reports: malaise Card: Reports: chest pain Resp: Reports: dyspnea PFSH ED PFSH: Medical History Arthritis of both knees Chronic knee pain after total replacement of both knee joints Diabetes mellitus Encounter for health education History of basal cell carcinoma History of revision of total replacement of left knee joint (~2017) Hypersensitivity reaction Hypertension Mechanical complication of prosthetic knee implant Morbid obesity Nickel allergy, current reaction Renal calculus, left Urinary tract infection Yeast vaginitis Surgical History History of bilateral knee replacement History of colonoscopy (~2017) History of esophagogastroduodenoscopy (EGD) (~2017) History of Gen fundoplication (~2010) History of total bilateral knee replacement S/P gastric bypass Status post laser lithotripsy of ureteral calculus Social History Smoking and tobacco status: never smoked Alcohol intake: never Marital status: Current occupational status: retired History of recent travel: No Female Reproductive History: Spontaneous abortions: No Physical Exam Const: COMMON NORMALS: alert GENERAL APPEARANCE: cooperative and well developed HENMT: COMMON NORMALS: normocephalic and atraumatic HEAD & SCALP: normocephalic and atraumatic THROAT: posterior oropharynx normal OTHER: Dry mucous membranes Eye: COMMON NORMALS: conjunctivae normal CONJUNCTIVA: Yes conjunctivae normal SCLERA: sclerae normal Neck/C-Spine: COMMON NORMALS: supple GENERAL: Yes trachea midline Resp: COMMON NORMALS: normal respiratory effort EFFORT & INSPECTION: Yes able to speak in complete sentences AUSCULTATION: diminished lung sounds Cardio: COMMON NORMALS: regular rate and regular rhythm RATE: regular rate RHYTHM: regular rhythm GI: COMMON NORMALS: Soft to palpation PALPATION: Yes Soft to palpation and No Tenderness to palpation present (GI) Extremity: GENERAL: Yes normal exam except as noted and No edema Neuro: COMMON NORMALS: moves all extremities SENSORIUM/ORIENTATION: Yes alert and No Orientation impaired Psych: COMMON NORMALS: mental status grossly normal and Normal thought process present THOUGHT PROCESS: Normal thought process present Course Vital Signs: Vital signs: Vital Signs Temperature 98.0 F 07/18/22 15:14 Pulse Rate 79 07/18/22 15:14 Respiratory Rate 16 07/18/22 15:14 Blood Pressure 132/70 07/18/22 15:14 Pulse Oximetry 96 07/18/22 15:14 Oxygen Delivery Me thod 07/18/22 13:55 Oxygen Flow Rate 2 07/18/22 13:55 [facility] - General Adult Medical Decision Making 67-year-old lady presenting with continued chest pain and respiratory symptoms. Exam as above. Patient is nontoxic and pain is not reproducible with palpation. EKG notable for sinus rhythm with left axis deviation and nonspecific ST segment abnormalities, similar on repeat, normal intervals, no STEMI. Labs notable for leukocytosis which is mildly worse than previous, otherwise similar hematologic panel. Metabolic panel with perhaps new evidence of mild dehydration intravascularly./Transaminitis is new. Negative range 2-hour delta troponin. No evidence of UTI. PCR viral testing is negative. Chest x-ray with bibasilar streaky opacities, no lobar consolidation or pneumothorax. Based on exam new since prior chest x-ray and prior CTA was reviewed. Patient feels improved with antibiotics, RT treatment, analgesia, and given evidence of worsening leukocytosis as well as description of symptoms and chest x-ray findings dose of antibiotics for pneumonia. Most likely the patient symptoms is pneumonia which will be treated with antibiotics in the outpatient setting. The results of ED evaluation were discussed with the patient including prescriptions and/or symptomatic cares (if applicable) including appropriate and responsible use, followup plan, and return precautions. The patient verbalized understanding and felt safe for discharge. Medical Records I reviewed the patient's medical records. Lab Data I reviewed the patient's lab results. 07/18/22 11:33 07/18/22 11:33 Radiology Impressions Chest X-Ray 07/18/22 11:31 IMPRESSION: Streaky bibasilar atelectasis. Pneumonia should be excluded clinically. Laboratory Results WBC 16.5 10^3/uL (4.0-10.0) H 07/18/22 11:33 RBC 4.42 10^6/uL (4.1-5.3) 07/18/22 11:33 Hgb 13.2 g/dL (11.5-15.3) 07/18/22 11:33 Hct 42.2 % (37.0-47.0) 07/18/22 11:33 MCV 95.5 fl (81-99) 07/18/22 11:33 MCH 29.9 pg (28.0-34.0) 07/18/22 11:33 MCHC 31.3 g/dL (30.0-36.0) 07/18/22 11:33 RDW 12.5 % (12.1-15.1) 07/18/22 11:33 Plt Count 269 10^3/cmm (130-400) 07/18/22 11:33 MPV 9.8 fL (7.4-10.4) 07/18/22 11:33 Neut % (Auto) 80.0 % 07/18/22 11:33 Lymph % (Auto) 8.9 % 07/18/22 11:33 Dick[place] % (Auto) 9.8 % 07/18/22 11:33 Eos % (Auto) 0.4 % 07/18/22 11:33 Baso % (Auto) 0.4 % 07/18/22 11:33 Neut # (Auto) 13.15 10^3/uL (1.8-7.7) H 07/18/22 11:33 Lymph # (Auto) 1.5 10^3/uL (0.8-4.8) 07/18/22 11:33 Dickens # (Auto) 1.6 10^3/uL (0.2-0.9) H 07/18/22 11:33 Eos # (Auto) 0.1 10^3/uL (0.0-0.8) 07/18/22 11:33 Baso # (Auto) 0.1 10^3/uL (0.0-0.1) 07/18/22 11:33 Nucleated RBC % (auto) 0 % 07/18/22 11:33 Nucleated RBCs # 0.0 /100WBC 07/18/22 11:33 Sodium 134 mmol/L (136-145) L 07/18/22 11:33 Potassium 4.0 mmol/L (3.5-5.1) 07/18/22 11:33 Chloride 97 mmol/L (98-107) L 07/18/22 11:33 Carbon Dioxide 29 mmol/L (22-29) 07/18/22 11:33 Anion Gap 12.0 (5-19) 07/18/22 11:33 BUN 14 mg/dL (8-23) 07/18/22 11:33 Creatinine 0.8 mg/dL (0.5-0.9) 07/18/22 11:33 GFR Calculation 71.1 mL/min (90-130) L 07/18/22 11:33 Glucose 163 mg/dL (65-115) H 07/18/22 11:33 Calculated Osmolality 282 mOsm/kg (285-295) L 07/18/22 11:33 Lactic Acid 0.9 mmol/L (0.5-2.2) 07/18/22 11:33 Calcium 9.1 mg/dL (8.5-10.5) 07/18/22 11:33 Total Bilirubin 0.7 mg/dL (0.15-1.2) 07/18/22 11:33 AST 40 U/L (0-32) H 07/18/22 11:33 ALT 46 U/L (0-33) H 07/18/22 11:33 Alkaline Phosphatase 170 U/L (35-105) H 07/18/22 11:33 Troponin T Baseline 12 ng/L (0-10) H 07/18/22 11:33 Troponin T 120 Minute 10.42 ng/L (0-10) H 07/18/22 13:38 Delta Troponin T -1.58 ABS# (0-10) L 07/18/22 13:38 NT-Pro-B Natriuret Pep 547 pg/mL (0-125) H 07/18/22 11:33 Total Protein 7.1 g/dL (6.6-8.7) 07/18/22 11:33 Albumin 3.7 g/dL (3.5-5.2) 07/18/22 11:33 Globulin 3.4 g/dL (1.3-4.6) 07/18/22 11:33 Urine Color Yellow (Yellow) 07/18/22 13:52 Urine Appearance Clear (CLEAR) 07/18/22 13:52 Urine pH 5 (5-7) 07/18/22 13:52 Ur Specific [place] 1.010 (1.005-1.030) 07/18/22 13:52 Urine Protein Neg (Negative) 07/18/22 13:52 Urine Glucose (UA) Norm (Normal) 07/18/22 13:52 Urine Ketones Negative (Negative) 07/18/22 13:52 Urine Blood Neg (Negative) 07/18/22 13:52 Urine Nitrate Negative (Negative) 07/18/22 13:52 Urine Bilirubin Neg (Negative) 07/18/22 13:52 Urine Urobilinogen 1 mg/dL (Negative) H 07/18/22 13:52 Ur Leukocyte Esterase Negative (Negative) 07/18/22 13:52 Coronavirus 229E (PCR) Not detected (NOT DETECT) 07/18/22 11:38 SARS-CoV-2 (PCR) Not detected (NOT DETECT) 07/18/22 11:38 Discharge Plan Discharge Patient Disposition: Home Clinical Impression: Pneumonia, Chest pain, Dehydration, Transaminitis Condition: Stable Prescriptions: New amoxicillin-pot clavulanate 875-125 mg tablet 1 tab PO BID Qty: 20 0RF No Action (DME) supinator to the right ankle See Rx Instructions .Route .MEDSUPPLY Qty: 1 0RF Rx Instructions: As directed (DME) accomadative orthotic See Rx Instructions .Route .MEDSUPPLY Qty: 1 0RF Rx Instructions: As directed mecobalamin (vitamin B12) 5,000 mcg tablet,disintegrating 5,000 mcg PO DAILY benzonatate 100 mg capsule 100 mg PO BID PRN (Reason: cough) 14 Days Qty: 28 0RF dextromethorphan polistirex 30 mg/5 mL suspension,extended rel 12 hr 10 ml PO Q12H PRN (Reason: cough) Qty: 89 0RF duloxetine 20 mg capsule,delayed release(DR/EC) 20 mg PO BID 30 Days Qty: 60 2RF furosemide 20 mg tablet 40 mg PO DAILY PRN (Reason: edema) Qty: 60 5RF albuterol sulfate [Ventolin HFA] 90 mcg/actuation HFA aerosol inhaler 2 puff inhalation Q6H PRN (Reason: shortness of breath or wheezing) Qty: 8.5 5RF tizanidine 4 mg tablet 4 mg PO Q8H PRN (Reason: muscle spasticity) Qty: 90 2RF Rx Instructions: 340B fluorouracil 5 % cream 1 applic topical BID 42 Days Qty: 40 0RF Rx Instructions: Apply thin film to nasal tip twice daily for 6 weeks 340B potassium citrate 10 mEq (1,080 mg) tablet extended release 10 meq PO BID Qty: 60 12RF Rx Instructions: 340B levothyroxine 175 mcg tablet 175 mcg PO QAM 90 Days Qty: 90 1RF nitroglycerin 0.4 mg Tablet, Sublingual 0.4 mg SUBLINGUAL Q5M PRN (Reason: Chest Pain) potassium chloride 10 mEq tablet extended release 10 meq PO DAILY PRN (Reason: w/lasix) pramipexole 0.5 mg tablet 1 mg PO BID pantoprazole 40 mg tablet,delayed release (DR/EC) 40 mg PO QAM gabapentin 300 mg capsule 300 mg PO BID hydrocodone-acetaminophen 5-325 mg tablet 1 tab PO Q6H PRN (Reason: pain) Qty: 14 0RF ondansetron HCl 4 mg tablet 4 mg PO Q6H PRN (Reason: nausea and vomiting) Qty: 20 0RF Discharge Orders: Discharge ED (Routine); Ordered 07/18/22 Ordered By: Sammy Kolm Referrals: Re Nathan MD [Primary Care Provider] - Discharge Diet: Usual diet Discharge Activity: Increase activity as tolerated Patient Instructions: Chest Pain (ED), Bacterial Pneumonia (ED), Opioid Safety Activity Restrictions/Additional Instructions: Thank you for visiting the emergency department. You were seen and evaluated for chest pain as well as cough and fever. The most likely cause of your symptoms is pneumonia which will be treated with antibiotics. I would expect improvement in the next few days. Please follow-up with your primary care provider. Return to the emergency department for worsening symptoms, inability to tolerate medication, or anything else that you are concerned about a feel needs emergency department evaluation. Coding Level of Care Code ED Escort Blind for Bernie Fwd Exam Comprehensive
[2022-07-18 11:19] VITALS: BP 91/49; PULSE 73; RESP 93; TEMP 36.4; O2SAT 93
--- NOTE | 2022-07-18 11:30 | PC.NURSE ---
pt on bedside monitoring manager
--- NOTE | 2022-07-18 11:31 | XRR_ITS ---
PROCEDURE INFORMATION: Exam: XR Chest Exam date and time: 07/18/2022 11:38 AM Age: 67 years old Clinical indication: Shortness of breath; Additional info: Cough, SOB, cp TECHNIQUE: Imaging protocol: Radiologic exam of the chest. Views: 1 view. COMPARISON: CR XR chest 1V portable [id number] 07/16/2022 3:13 PM FINDINGS: Lungs: No consolidation. Streaky bibasilar atelectasis noted. Pleural spaces: Unremarkable. No pleural effusion. No pneumothorax. Heart/Mediastinum: Stable cardiomediastinal silhouette. Bones/joints: Unremarkable. XR/XR chest 1V portable [id number] IMPRESSION: Streaky bibasilar atelectasis. Pneumonia should be excluded clinically.
--- NOTE | 2022-07-18 11:32 | ECG_ITS ---
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 Measurements Intervals [place] Rate: 62 P: 59 NH: 159 QRS: -28 QRSD: 91 T: 7 QT: 372 QTc: 379 Interpretive Statements SINUS RHYTHM POSSIBLE LEFT ATRIAL ENLARGEMENT [-0.1mV P-WAVE IN V1/V2] BORDERLINE LEFT AXIS DEVIATION [QRS AXIS < -20] NONSPECIFIC ST & T-WAVE ABNORMALITY Compared to ECG 07/16/2022 21:15:54 T-wave abnormality now present Electronically Signed On 07-19-2022 8:58:58 FARM EQUIPMENT SERVICE TECHNICIAN by Ruby Rojo M.D. [id number]
[2022-07-18 11:43] LABS: Basophils # 0.1 10^3/uL (0.0-0.1); Basophils % 0.4 %; Eosinophils # 0.1 10^3/uL (0.0-0.8); Eosinophils % 0.4 %; Hematocrit 42.2 % (37.0-47.0); Hemoglobin 13.2 g/dL (11.5-15.3); Lymphocytes # 1.5 10^3/uL (0.8-4.8); Lymphocytes % 8.9 %; Mean Corpuscular HGB Conc 31.3 g/dL (30.0-36.0); Mean Corpuscular Hemoglobin 29.9 pg (28.0-34.0); Mean Corpuscular Volume 95.5 fl (81-99); Mean Platelet Volume 9.8 fL (7.4-10.4); Monocytes # 1.6 10^3/uL (0.2-0.9); Monocytes % 9.8 %; Neutrophils # 13.15 10^3/uL (1.8-7.7); Nucleated Red Blood Cells % 0 %; Platelet Count 269 10^3/cmm (130-400); Red Blood Count 4.42 10^6/uL (4.1-5.3); Red Cell Distribution Width 12.5 % (12.1-15.1); White Blood Count 16.5 10^3/uL (4.0-10.0)
[2022-07-18 11:45] VITALS: PULSE 68; RESP 16; O2SAT 95
[2022-07-18] MEDS: ipratropium-albuterol 3 mL Neb INHALATION (11:49)
[2022-07-18 11:53] VITALS: PULSE 68
[2022-07-18 12:00] VITALS: BP 98/50; PULSE 74; RESP 16; O2SAT 92
[2022-07-18 12:09] LABS: Lactic Sepsis W/Reflex 0.9 mmol/L (0.5-2.2)
[2022-07-18 12:11] LABS: Troponin(5th) Baseline 12 ng/L (0-10)
[2022-07-18 12:16] LABS: Alanine Aminotransferase 46 U/L (0-33); Albumin Level 3.7 g/dL (3.5-5.2); Alkaline Phosphatase 170 U/L (35-105); Aspartate Amino Transferase 40 U/L (0-32); Blood Urea Nitrogen 14 mg/dL (8-23); Calcium 9.1 mg/dL (8.5-10.5); Carbon Dioxide 29 mmol/L (22-29); Chloride 97 mmol/L (98-107); Globulin 3.4 g/dL (1.3-4.6); Glomerular Filtration Rate 71.1 mL/min (90-130); Glucose 163 mg/dL (65-115); NT Pro B Type Natriuretic Pept 547 pg/mL (0-125); Osmolality Calculated 282 mOsm/kg (285-295); Sodium 134 mmol/L (136-145); Total Bilirubin 0.7 mg/dL (0.15-1.2); Total Protein 7.1 g/dL (6.6-8.7)
[2022-07-18] MEDS: sodium chloride 0.9% 1,000 ML 999 ML IV (12:28)
[2022-07-18] MEDS: ampicillin-sulbactam 3 GM in sodium chloride 0.9% (plus) 50 ML IV (13:15)
--- NOTE | 2022-07-18 13:40 | ECG_ITS ---
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 Measurements Intervals [place] Rate: 78 P: 70 NV: 162 QRS: -30 QRSD: 90 T: 52 QT: 354 QTc: 404 Interpretive Statements SINUS RHYTHM BORDERLINE LEFT AXIS DEVIATION [QRS AXIS < -20] NONSPECIFIC T-WAVE ABNORMALITY Compared to ECG 07/18/2022 11:45:16 No significant changes Electronically Signed On 07-19-2022 9:25:17 C.O.D. AUDIT CLERK by Ruby Rojo M.D. [id number]
[2022-07-18 13:55] VITALS: BP 121/73; PULSE 84; RESP 16; O2SAT 95
[2022-07-18 14:00] LABS: Adenovirus Not Detected (NOT DETECT); Chlamydia Pneumoniae Not Detected (NOT DETECT); Coronavirus 229E,HKU1,NL63,OC4 Not Detected (NOT DETECT); Human Metapneumovirus Not Detected (NOT DETECT); Human Rhinovirus/Enterovirus Not Detected (NOT DETECT); Influenza A Not Detected (NOT DETECT); Influenza A H1 Not Detected (NOT DETECT); Influenza A H1-2009 Not Detected (NOT DETECT); Influenza A H3 Not Detected (NOT DETECT); Influenza B Not Detected (NOT DETECT); Mycoplasma Pneumoniae Not Detected (NOT DETECT); Parainfluenza Virus Type 1 Not Detected (NOT DETECT); Parainfluenza Virus Type 2 Not Detected (NOT DETECT); Parainfluenza Virus Type 3 Not Detected (NOT DETECT); Parainfluenza Virus Type 4 Not Detected (NOT DETECT); Respiratory Syncytial Virus A Not Detected (NOT DETECT); Respiratory Syncytial Virus B Not Detected (NOT DETECT); SARS-COV-2 Not Detected (NOT DETECT)
[2022-07-18 14:09] LABS: Add Urine Microscopic? NO; Charge for UA Resulting for Rev
[2022-07-18 14:22] LABS: Bilirubin Urine Neg (Negative); Blood Urine Neg (Negative); Glucose Urine UA Norm (Normal); Ketones Urine Negative (Negative); Leukocyte Esterase Urine Negative (Negative); Nitrate Urine Negative (Negative); Protein Urine Neg (Negative); Urine Appearance Clear (CLEAR); Urine Color Yellow (Yellow); Urobilinogen Urine 1 mg/dL (Negative); pH Urine 5 (5-7)
[2022-07-18] MEDS: HYDROcodone-acetaminophen 5-325 mg Tablet 1 TAB PO (14:37)
[2022-07-18 14:46] LABS: Troponin 5 2HR 10.42 ng/L (0-10)
[2022-07-18 14:57] LABS: Troponin 5 2HR Delta -1.58 ABS# (0-10)
[2022-07-18 15:14] VITALS: BP 132/70; PULSE 79; RESP 16; TEMP 36.7; O2SAT 96
== END 2022-07-18 15:25 | disposition home or self-care (01) ==
PROVIDERS: Emergency Provider Emergency Medicine; PCP Family Medicine
DX: J18.9 Pneumonia, unspecified organism (principal); E86.0 Dehydration; R74.01 Elevation of levels of liver transaminase levels; Z20.822 Contact with and (suspected) exposure to COVID-19; E11.9 Type 2 diabetes mellitus without complications; I10 Essential (primary) hypertension; R07.9 Chest pain, unspecified
CPT/HCPCS: 36415; 71045; 80053; 81003; 83605; 83880; 84484; 85025; 87040; 87635; 93005; 94640; 96365; 99285; J0295; J7030

== ENCOUNTER → 2022-07-20 12:54 | Outpatient (BNVA) | payer MEDICARE, SELFPAY | PROVIDERS: PCP Family Medicine; Visit Provider Family Medicine | DX: J18.9 Pneumonia, unspecified organism (principal); Z12.31 Encounter for screening mammogram for malignant neoplasm of breast | CPT/HCPCS: 85025 ==

== ENCOUNTER → 2022-08-13 10:49 | Outpatient (BNVA) | payer MEDICARE, SELFPAY | PROVIDERS: PCP Family Medicine; Visit Provider Family Medicine | DX: K04.7 Periapical abscess without sinus (principal); I10 Essential (primary) hypertension; E11.59 Type 2 diabetes mellitus with other circulatory complications; E03.9 Hypothyroidism, unspecified; E11.9 Type 2 diabetes mellitus without complications; J18.9 Pneumonia, unspecified organism | CPT/HCPCS: 80053; 83036; 84439; 84443; 84481; 85025 ==

== ENCOUNTER 2022-08-27 07:21 | Outpatient (CLI) | payer MEDICARE, SELFPAY ==
--- NOTE | 2022-08-27 08:08 | MM_ITS ---
WS: [id number] BILATERAL SCREENING DIGITAL TOMOSYNTHESIS MAMMOGRAM WITH CAD HISTORY: SCREEN COMPARISON: 05/05/2021, 11/21/2020, 07/31/2019 and 04/19/2018 Bilateral CC and MLO views with tomosynthesis and synthetic mammography submitted. Computer aided det ection analyzed. Breast composition: There are scattered areas of fibroglandular density. No suspicious masses, microc alcifications or architectural distortion. Scattered calcifications and asymmetries are stable. MM/[place] [id number] IMPRESSION: BI-RADS: 2-Benign FOLLOW UP: 1 Year Follow-up
== END 2022-08-27 07:22 | disposition home or self-care (01) ==
LOC: RAD 07:27
PROVIDERS: PCP Family Medicine; Visit Provider Family Medicine
DX: Z12.31 Encounter for screening mammogram for malignant neoplasm of breast (principal)
CPT/HCPCS: 77063; 77067; 85025

== ENCOUNTER 2022-08-27 08:49 | Emergency (ER) | payer MEDICARE, SELFPAY ==
[2022-08-27 09:06] VITALS: BP 146/74; PULSE 81; RESP 18; TEMP 36.7; O2SAT 97
--- NOTE | 2022-08-27 09:25 | ED_ITS ---
Documented by User: POOJA Garcia 08/27/22 13:14 HPI - Female Genitourinary General: Chief complaint: Urogenital-Female Stated complaint: possible kidney stones Time Seen by Provider: 08/27/22 09:02 Source: patient Mode of arrival: ambulatory Limitations: no limitations History of Present Illness: Patient is a very nice 67-year-old female presents to ED today with a complaint of right-sided back and flank pain that began about 2 to 3 days ago. She states pain has been fairly constant since onset with recurrent severe exacerbations. Patient states she has a fairly significant history of multiple stones on the left side requiring extraction/lithotripsy/ureter stenting. She states her pain currently feels like previous stones. She denies dysuria, frequency, urgency, or hematuria. She has not been running fevers. She has had a few episodes of nonbloody emesis that she feels is secondary to the pain. Bowel movements been normal. Patient states she has seen Dr. Burnett in the past for treatment and evaluation of her stones. MD elicited complaint: back pain and flank pain Pertinent past history: other (kidney/ureter stones) Onset (ago): day(s) Severity: severe Female Urogenital Radiation: R Flank Quality of pain: sharp Consistency: constant Vaginal discharge: none Vaginal bleeding: none Exacerbating factors: none Relieving factors: none Associated symptoms: Reports nausea; Deny abdominal pain or headache(s) Patient : No Review of Systems Const: Denies: fever(s), chills, body aches, fatigue or malaise Card: Denies: chest pain Resp: Denies: dyspnea GI: Reports: nausea and vomiting; Denies: abdominal pain, hematemesis or change in bowel habits : Reports: flank pain; Denies: difficulty voiding, dysuria, urinary frequency, urinary urgency, urinary hesitancy, dribbling or pelvic pain Musc: Reports: back pain (R back/flank); Denies: neck pain, extremity pain, extremity swelling, joint pain or joint swelling Skin/Breast: Denies: rash Neuro: Denies: headache(s), numbness in extremities, weakness in extremities, sensory changes or dizziness PFS ED PFSH: Medical History Arthritis of both knees Chronic knee pain after total replacement of both knee joints Diabetes mellitus Encounter for health education History of basal cell carcinoma History of revision of total replacement of left knee joint (~2017) Hypersensitivity reaction Hypertension Mechanical complication of prosthetic knee implant Morbid obesity Nickel allergy, current reaction Renal calculus, left Urinary tract infection Yeast vaginitis Surgical History History of bilateral knee replacement History of colonoscopy (~2017) History of esophagogastroduodenoscopy (EGD) (~2017) History of Gen fundoplication (~2010) History of total bilateral knee replacement S/P gastric bypass Status post laser lithotripsy of ureteral calculus Social History Smoking and tobacco status: never smoked Alcohol intake: never Marital status: Current occupational status: retired Female Reproductive History: Spontaneous abortions: No Physical Exam Const: COMMON NORMALS: patient oriented x3, no limitations, healthy appearing and well nourished GENERAL APPEARANCE: cooperative and in distress (appears uncomfortable secondary to pain) ORIENTATION/CONSCIOUSNESS: Yes awake, Yes oriented to person, Yes oriented to place and Yes oriented to time HENMT: COMMON NORMALS: normocephalic and atraumatic HEAD & SCALP: normal to inspection, normocephalic and atraumatic Resp: COMMON NORMALS: normal respiratory effort and clear to auscultation bilaterally AUSCULTATION: clear to auscultation bilaterally Cardio: COMMON NORMALS: regular rate and regular rhythm RATE: regular rate RHYTHM: regular rhythm GI: COMMON NORMALS: Normal to inspection, nondistended, normoactive bowel sounds present, Soft to palpation, non-tender, No hepatosplenomegaly present and no masses INSPECTION: Yes normal to inspection PALPATION: Yes Soft to palpation and Yes No hepatosplenomegaly present : BLADDER/KIDNEY EXAM: Yes CVA tenderness (significant R flank pain) on the right Back/Pelvis: COMMON NORMALS: thoracic and lumbar spine normal to inspection, no thoracic nor lumbar tenderness and thoraco-lumbar ROM normal GENERAL BACK: Yes CVA tenderness (significant R flank pain) LUMBAR SPINE/LOWER BACK: Yes paraspinal muscle tenderness (throughout R side of back) PELVIS: Yes buttocks normal SACROILIAC JOINTS: Yes SI joints normal SACRUM: no tenderness COCCYX: no tenderness Extremity: GENERAL: Yes normal exam except as noted and Yes edema (bilateral LE edema-chronic per patient) Neuro: JUSTINA COMA SCALE: document GCS findings Justina coma scale eye opening: Spontaneous Justina coma scale verbal response: Orientated Justina coma scale motor response: Obey commands Justina coma scale total score: 15 COMMON NORMALS: patient oriented x3, moves all extremities, no focal motor deficits and no sensory deficits noted SENSORIUM/ORIENTATION: Yes oriented to person, Yes oriented to place and Yes oriented to time Skin: COMMON NORMALS: no rashes or lesions noted GENERAL SKIN EXAM: no rashes or lesions noted Course Vital Signs: Vital signs: Vital Signs Temperature 98.1 F 08/27/22 09:06 Pulse Rate 81 08/27/22 09:06 Respiratory Rate 18 08/27/22 09:06 Blood Pressure 146/74 08/27/22 09:06 Pulse Oximetry 97 08/27/22 09:06 Oxygen Delivery Me thod 08/27/22 09:06 MDM - Female Medical Decision Making Patient is a very nice 67-year-old female for complaints of right flank pain that began 2 to 3 days ago. She has an extensive history of nephro and ureterolithiasis on the left and states her pain today felt very similar to previous stones that she has had. Her initial blood work was unremarkable. Her UA was normal. Decision to CT was made based on the degree of patient's discomfort. On CT scan her right kidney appears normal. No renal or ureter calculi noted. She did have marked constipation although I do not feel this is responsible for her discomfort. She had a dilated CBD that has not changed in size from previous scan on 12/2021. LFTs are normal. During her stay she began complaining of pain starting in her flank and wrapping around to her chest. EKG obtained which showed no ischemic changes. Troponin series were added which were normal. CXR normal. I had Dr. Zimmer also evaluate patient and he feels pain may be secondary to neuropathic etiology such as shingles. Decision was made to place patient on antivirals. Strict return ED precautions given otherwise I would like her to follow-up with her primary care provider soon as possible for further evaluation. Patient states she has pain and nausea medications at home. Lab Data 08/27/22 09:37 08/27/22 09:37 Radiology Impressions Abdomen/Pelvis CT 08/27/22 09:25 IMPRESSION: 1. Prior cholecystectomy. 2. Dilated common bile duct measures 14 mm. Common bile duct dilatation is similar diameter on 01/01/2022. No distal obstructing calcified common bile duct stone identified. 3. No RIGHT renal obstruction. 4. LEFT renal staghorn calculus with no obstruction. 5. Marked constipation. Greatest throughout the RIGHT abdomen. 6. Normal appendix. Chest X-Ray 08/27/22 10:49 IMPRESSION: No acute findings. Laboratory Results WBC 8.6 10^3/uL (4.0-10.0) 08/27/22 09:37 RBC 4.38 10^6/uL (4.1-5.3) 08/27/22 09:37 Hgb 13.1 g/dL (11.5-15.3) 08/27/22 09:37 Hct 42.1 % (37.0-47.0) 08/27/22 09:37 MCV 96.1 fl (81-99) 08/27/22 09:37 MCH 29.9 pg (28.0-34.0) 08/27/22 09:37 MCHC 31.1 g/dL (30.0-36.0) 08/27/22 09:37 RDW 13.0 % (12.1-15.1) 08/27/22 09:37 Plt Count 276 10^3/cmm (130-400) 08/27/22 09:37 MPV 9.6 fL (7.4-10.4) 08/27/22 09:37 Neut % (Auto) 68.1 % 08/27/22 09:37 Lymph % (Auto) 20.6 % 08/27/22 09:37 Dickens % (Auto) 8.1 % 08/27/22 09:37 Eos % (Auto) 2.1 % 08/27/22 09:37 Baso % (Auto) 0.6 % 08/27/22 09:37 Neut # (Auto) 5.88 10^3/uL (1.8-7.7) 08/27/22 09:37 Lymph # (Auto) 1.8 10^3/uL (0.8-4.8) 08/27/22 09:37 Dickens # (Auto) 0.7 10^3/uL (0.2-0.9) 08/27/22 09:37 Eos # (Auto) 0.2 10^3/uL (0.0-0.8) 08/27/22 09:37 Baso # (Auto) 0.1 10^3/uL (0.0-0.1) 08/27/22 09:37 Nucleated RBC % (auto) 0 % 08/27/22 09:37 Nucleated RBCs # 0.0 /100WBC 08/27/22 09:37 Sodium 139 mmol/L (136-145) 08/27/22 09:37 Potassium 3.9 mmol/L (3.5-5.1) 08/27/22 09:37 Chloride 102 mmol/L (98-107) 08/27/22 09:37 Carbon Dioxide 28 mmol/L (22-29) 08/27/22 09:37 Anion Gap 12.9 (5-19) 08/27/22 09:37 BUN 16 mg/dL (8-23) 08/27/22 09:37 Creatinine 0.6 mg/dL (0.5-0.9) 08/27/22 09:37 GFR Calculation 99.1 mL/min (90-130) 08/27/22 09:37 Glucose 120 mg/dL (65-115) H 08/27/22 09:37 Calculated Osmolality 290 mOsm/kg (285-295) 08/27/22 09:37 Calcium 9.0 mg/dL (8.5-10.5) 08/27/22 09:37 Total Bilirubin 0.4 mg/dL (0.15-1.2) 08/27/22 09:37 AST 14 U/L (0-32) 08/27/22 09:37 ALT 15 U/L (0-33) 08/27/22 09:37 Alkaline Phosphatase 96 U/L (35-105) 08/27/22 09:37 Troponin T Baseline 8 ng/L (0-10) 08/27/22 09:37 Troponin T 120 Minute 8.29 ng/L (0-10) 08/27/22 12:10 Delta Troponin T 0.29 ABS# (0-10) 08/27/22 12:10 Total Protein 6.6 g/dL (6.6-8.7) 08/27/22 09:37 Albumin 4.0 g/dL (3.5-5.2) 08/27/22 09:37 Globulin 2.6 g/dL (1.3-4.6) 08/27/22 09:37 Urine Color Yellow (Yellow) 08/27/22 09:17 Urine Appearance Clear (CLEAR) 08/27/22 09:17 Urine pH 6 (5-7) 08/27/22 09:17 Ur Specific Bro[place]mith 1.020 (1.005-1.030) 08/27/22 09:17 Urine Protein Neg (Negative) 08/27/22 09:17 Urine Glucose (UA) Norm (Normal) 08/27/22 09:17 Urine Ketones 1+ (Negative) H 08/27/22 09:17 Urine Blood Neg (Negative) 08/27/22 09:17 Urine Nitrate Negative (Negative) 08/27/22 09:17 Urine Bilirubin Neg (Negative) 08/27/22 09:17 Urine Urobilinogen Neg mg/dL (Negative) 08/27/22 09:17 Ur Leukocyte Esterase Negative (Negative) 08/27/22 09:17 Discharge Plan Discharge Patient Disposition: Home Clinical Impression: Neuropathic pain Condition: Stable Prescriptions: New Valtrex 1 gram tablet 1,000 mg PO Q8H 7 Days Qty: 21 0RF No Action (DME) supinator to the right ankle See Rx Instructions .Route .MEDSUPPLY Qty: 1 0RF Rx Instructions: As directed (DME) accomadative orthotic See Rx Instructions .Route .MEDSUPPLY Qty: 1 0RF Rx Instructions: As directed mecobalamin (vitamin B12) 5,000 mcg tablet,disintegrating 5,000 mcg PO DAILY furosemide 20 mg tablet 40 mg PO DAILY PRN (Reason: edema) Qty: 60 5RF albuterol sulfate [Ventolin HFA] 90 mcg/actuation HFA aerosol inhaler 2 puff inhalation Q6H PRN (Reason: shortness of breath or wheezing) Qty: 8.5 5RF tizanidine 4 mg tablet 4 mg PO Q8H PRN (Reason: muscle spasticity) Qty: 90 2RF Rx Instructions: 340B levothyroxine 150 mcg tablet 150 mcg PO QAM 90 Days Qty: 90 0RF Rx Instructions: dose change potassium citrate 10 mEq (1,080 mg) tablet extended release 10 meq PO BID Qty: 60 12RF Rx Instructions: 340B tamsulosin [Flomax] 0.4 mg capsule 0.4 mg PO DAILY Qty: 30 6RF oxycodone-acetaminophen [Percocet] 5-325 mg tablet 1 tab PO Q8H PRN (Reason: pain) 7 Days Qty: 20 0RF nitroglycerin 0.4 mg Tablet, Sublingual 0.4 mg SUBLINGUAL Q5M PRN (Reason: Chest Pain) potassium chloride 10 mEq tablet extended release 10 meq PO DAILY PRN (Reason: w/lasix) pantoprazole 40 mg tablet,delayed release (DR/EC) 40 mg PO QAM gabapentin 300 mg capsule 300 mg PO BID hydrocodone-acetaminophen 5-325 mg tablet 1 tab PO Q6H PRN (Reason: pain) Qty: 14 0RF pramipexole 0.5 mg tablet 1 mg PO BID MDD 4 tabs duloxetine 20 mg capsule,delayed release(DR/EC) 20 mg PO BID ondansetron HCl 4 mg tablet 4 mg PO Q6H PRN (Reason: nausea and vomiting) Qty: 20 0RF Discharge Orders: Discharge ED (Routine); Ordered 08/27/22 Ordered By: Fatmata Melendez Referrals: Re Nathan MD [Primary Care Provider] - Activity Restrictions/Additional Instructions: As we discussed your blood work today was unremarkable. Your urine shows no evidence for infection. Was no blood present in your urine. Your CT scan shows a normal right kidney with no stones present. You did have quite a bit of constipation that the radiologist commented on-I do not believe this is n ecessarily causing your discomfort. Your chest x-ray was normal. As me and Dr. Zimmer discussed with you-your pain could be secondary to neuropathic pain possibly from shingles. We are placing you on antiviral therapy at this time. I recommend you follow-up with your primary care provider in 2 to 3 days for re- evaluation. We discussed strict return to ED precautions to going into the weekend. Coding Level of Care Code ED Investment Consultant for [employer]wd Documented by User: Ad Zimmer DO 08/27/22 11:57 HPI - Female Genitourinary General: Chief complaint: Urogenital-Female Stated complaint: possible kidney stones Time Seen by Provider: 08/27/22 09:02 [facility] ED PFSH: Medical History Arthritis of both knees Chronic knee pain after total replacement of both knee joints Diabetes mellitus Encounter for health education History of basal cell carcinoma History of revision of total replacement of left knee joint (~2017) Hypersensitivity reaction Hypertension Mechanical complication of prosthetic knee implant Morbid obesity Nickel allergy, current reaction Renal calculus, left Urinary tract infection Yeast vaginitis Surgical History History of bilateral knee replacement History of colonoscopy (~2017) History of esophagogastroduodenoscopy (EGD) (~2017) History of Gen fundoplication (~2010) History of total bilateral knee replacement S/P gastric bypass Status post laser lithotripsy of ureteral calculus Social History Smoking and tobacco status: never smoked Alcohol intake: never Marital status: Current occupational status: retired Physical Exam Neuro: JUSTINA COMA SCALE: document GCS findings Justina coma scale total score: 15 Course Reevaluation(s): Reevaluation #1: This case was discussed with the advanced nurse practitioner and I was asked to see the patient as well. We did a focused interview and evaluation of this patient. The patient originally came to the emergency department because she has had approximately 4 days of what she thought was typical kidney stone pain in that it was sharp and come and go type pain predominantly on the right flank. There was no associated history of fever or chills, back injury etc. She no history of dysuria etc. She came to the emergency department because she was getting a mammogram today and felt like her symptoms were continuing and felt like she needed to be evaluated. Clinical examination reveals normal vital signs focused examination reveals normal-appearing chest back and flank. She does have tenderness to very light palpation of the skin and soft tissues of the right flank. None on the left. She has normal range of motion, no midline tenderness. There is no obvious skin rash noted at this time. Her chest is symmetrical and clear to auscultation and her cardiovascular Milo is regular without murmur. Peripheral pulses are equal and palpable in her calves are nontender no edema. Reviewed her current studies. Her CT scan does not reveal any evidence of significant pathology other than abdominal constipation. Her chest x-ray reviewed by me reveals no infiltrates with normal heart size etc. EKG reveals no evidence of acute ischemic changes. Certainly is unclear as to the etiology of her what appears to be neuropathic pain today however 1 wonders if this perhaps is tensional zoster with associated neuropathic and lancinating pain. We will go ahead and complete a troponin to ensure that no evidence of ongoing ischemia and given her duration of symptoms single biomarkers should be reassuring. This was discussed with patient as well as advanced nurse practitioner. If remainder of the work-up is reassuring symptomatic treatment would likely be the best plan with careful return precautions. Time: 11:57 Vital Signs: Vital signs: Vital Signs Temperature 98.1 F 08/27/22 09:06 Pulse Rate 81 08/27/22 09:06 Respiratory Rate 18 08/27/22 09:06 Blood Pressure 146/74 08/27/22 09:06 Pulse Oximetry 97 08/27/22 09:06 Oxygen Delivery Or thod 08/27/22 09:06 MDM - Female Lab Data 08/27/22 09:37 08/27/22 09:37 Radiology Impressions Abdomen/Pelvis CT 08/27/22 09:25 IMPRESSION: 1. Prior cholecystectomy. 2. Dilated common bile duct measures 14 mm. Common bile duct dilatation is similar diameter on 01/01/2022. No distal obstructing calcified common bile duct stone identified. 3. No RIGHT renal obstruction. 4. LEFT renal staghorn calculus with no obstruction. 5. Marked constipation. Greatest throughout the RIGHT abdomen. 6. Normal appendix. Chest X-Ray 08/27/22 10:49 IMPRESSION: No acute findings. Laboratory Results WBC 8.6 10^3/uL (4.0-10.0) 08/27/22 09:37 RBC 4.38 10^6/uL (4.1-5.3) 08/27/22 09:37 Hgb 13.1 g/dL (11.5-15.3) 08/27/22 09:37 Hct 42.1 % (37.0-47.0) 08/27/22 09:37 MCV 96.1 fl (81-99) 08/27/22 09:37 MCH 29.9 pg (28.0-34.0) 08/27/22 09:37 MCHC 31.1 g/dL (30.0-36.0) 08/27/22 09:37 RDW 13.0 % (12.1-15.1) 08/27/22 09:37 Plt Count 276 10^3/cmm (130-400) 08/27/22 09:37 MPV 9.6 fL (7.4-10.4) 08/27/22 09:37 Neut % (Auto) 68.1 % 08/27/22 09:37 Lymph % (Auto) 20.6 % 08/27/22 09:37 Dickens % (Auto) 8.1 % 08/27/22 09:37 Eos % (Auto) 2.1 % 08/27/22 09:37 Baso % (Auto) 0.6 % 08/27/22 09:37 Neut # (Auto) 5.88 10^3/uL (1.8-7.7) 08/27/22 09:37 Lymph # (Auto) 1.8 10^3/uL (0.8-4.8) 08/27/22 09:37 Dickens # (Auto) 0.7 10^3/uL (0.2-0.9) 08/27/22 09:37 Eos # (Auto) 0.2 10^3/uL (0.0-0.8) 08/27/22 09:37 Baso # (Auto) 0.1 10^3/uL (0.0-0.1) 08/27/22 09:37 Nucleated RBC % (auto) 0 % 08/27/22 09:37 Nucleated RBCs # 0.0 /100WBC 08/27/22 09:37 Sodium 139 mmol/L (136-145) 08/27/22 09:37 Potassium 3.9 mmol/L (3.5-5.1) 08/27/22 09:37 Chloride 102 mmol/L (98-107) 08/27/22 09:37 Carbon Dioxide 28 mmol/L (22-29) 08/27/22 09:37 Anion Gap 12.9 (5-19) 08/27/22 09:37 BUN 16 mg/dL (8-23) 08/27/22 09:37 Creatinine 0.6 mg/dL (0.5-0.9) 08/27/22 09:37 GFR Calculation 99.1 mL/min (90-130) 08/27/22 09:37 Glucose 120 mg/dL (65-115) H 08/27/22 09:37 Calculated Osmolality 290 mOsm/kg (285-295) 08/27/22 09:37 Calcium 9.0 mg/dL (8.5-10.5) 08/27/22 09:37 Total Bilirubin 0.4 mg/dL (0.15-1.2) 08/27/22 09:37 AST 14 U/L (0-32) 08/27/22 09:37 ALT 15 U/L (0-33) 08/27/22 09:37 Alkaline Phosphatase 96 U/L (35-105) 08/27/22 09:37 Troponin T Baseline 8 ng/L (0-10) 08/27/22 09:37 Troponin T 120 Minute 8.29 ng/L (0-10) 08/27/22 12:10 Delta Troponin T 0.29 ABS# (0-10) 08/27/22 12:10 Total Protein 6.6 g/dL (6.6-8.7) 08/27/22 09:37 Albumin 4.0 g/dL (3.5-5.2) 08/27/22 09:37 Globulin 2.6 g/dL (1.3-4.6) 08/27/22 09:37 Urine Color Yellow (Yellow) 08/27/22 09:17 Urine Appearance Clear (CLEAR) 08/27/22 09:17 Urine pH 6 (5-7) 08/27/22 09:17 Ur Specific [place] 1.020 (1.005-1.030) 08/27/22 09:17 Urine Protein Neg (Negative) 08/27/22 09:17 Urine Glucose (UA) Norm (Normal) 08/27/22 09:17 Urine Ketones 1+ (Negative) H 08/27/22 09:17 Urine Blood Neg (Negative) 08/27/22 09:17 Urine Nitrate Negative (Negative) 08/27/22 09:17 Urine Bilirubin Neg (Negative) 08/27/22 09:17 Urine Urobilinogen Neg mg/dL (Negative) 08/27/22 09:17 Ur Leukocyte Esterase Negative (Negative) 08/27/22 09:17 Discharge Plan Discharge Patient Disposition: Home Clinical Impression: Neuropathic pain Condition: Stable Prescriptions: New Valtrex 1 gram tablet 1,000 mg PO Q8H 7 Days Qty: 21 0RF No Action (DME) supinator to the right ankle See Rx Instructions .Route .MEDSUPPLY Qty: 1 0RF Rx Instructions: As directed (DME) accomadative orthotic See Rx Instructions .Route .MEDSUPPLY Qty: 1 0RF Rx Instructions: As directed mecobalamin (vitamin B12) 5,000 mcg tablet,disintegrating 5,000 mcg PO DAILY furosemide 20 mg tablet 40 mg PO DAILY PRN (Reason: edema) Qty: 60 5RF albuterol sulfate [Ventolin HFA] 90 mcg/actuation HFA aerosol inhaler 2 puff inhalation Q6H PRN (Reason: shortness of breath or wheezing) Qty: 8.5 5RF tizanidine 4 mg tablet 4 mg PO Q8H PRN (Reason: muscle spasticity) Qty: 90 2RF Rx Instructions: 340B levothyroxine 150 mcg tablet 150 mcg PO QAM 90 Days Qty: 90 0RF Rx Instructions: dose change potassium citrate 10 mEq (1,080 mg) tablet extended release 10 meq PO BID Qty: 60 12RF Rx Instructions: 340B tamsulosin [Flomax] 0.4 mg capsule 0.4 mg PO DAILY Qty: 30 6RF oxycodone-acetaminophen [Percocet] 5-325 mg tablet 1 tab PO Q8H PRN (Reason: pain) 7 Days Qty: 20 0RF nitroglycerin 0.4 mg Tablet, Sublingual 0.4 mg SUBLINGUAL Q5M PRN (Reason: Chest Pain) potassium chloride 10 mEq tablet extended release 10 meq PO DAILY PRN (Reason: w/lasix) pantoprazole 40 mg tablet,delayed release (DR/EC) 40 mg PO QAM gabapentin 300 mg capsule 300 mg PO BID hydrocodone-acetaminophen 5-325 mg tablet 1 tab PO Q6H PRN (Reason: pain) Qty: 14 0RF pramipexole 0.5 mg tablet 1 mg PO BID MDD 4 tabs duloxetine 20 mg capsule,delayed release(DR/EC) 20 mg PO BID ondansetron HCl 4 mg tablet 4 mg PO Q6H PRN (Reason: nausea and vomiting) Qty: 20 0RF Discharge Orders: Discharge ED (Routine); Ordered 08/27/22 Ordered By: Fatmata Melendez Referrals: Re Nathan MD [Primary Care Provider] - Activity Restrictions/Additional Instructions: As we discussed your blood work today was unremarkable. Your urine shows no evidence for infection. Was no blood present in your urine. Your CT scan shows a normal right kidney with no stones present. You did have quite a bit of constipation that the radiologist commented on-I do not believe this is necessarily causing your discomfort. Your chest x-ray was normal. As me and Dr. Zimmer discussed with you-your pain could be secondary to neuropathic pain possibly from shingles. We are placing you on antiviral therapy at this time. I recommend you follow-up with your primary care provider in 2 to 3 days for re-evaluation. We discussed strict return to ED precautions to going into the weekend. Coding Level of Care Code ED Investment Consultant for [employer] Colvin
--- NOTE | 2022-08-27 09:25 | CT_ITS ---
WS: [id number] CT ABDOMEN AND PELVIS NONCONTRAST HISTORY: R flank/back pain TECHNIQUE: Imaging performed through the abdomen and pelvis. Coronal and sagittal reformats are submi tted. All CT scans at [facility] use at least one of these dose optimization techniques: auto mated exposure control; mA and/or kV adjustment per patient size (includes targeted exams where dose is matched to clinical indication); or iterative reconstruction. DLP: 672.57 mGy.cm COMPARISON: 01/01/2022 Lower thorax: Lung bases are clear. Visualized heart is normal. Small hiatal hernia. Liver: Liver is normal size. Central bile duct is dilated measuring 14 mm in diameter. Similar findin g on 01/01/2022 prior to the cholecystectomy. No distal obstructing calcified stone identified. Cannot evaluate for intrahepatic duct dilatation without IV contrast. Gallbladder: Prior cholecystectomy. Pancreas: Atrophied pancreas. Diffuse atrophy of the pancreas. Spleen: Normal. Adrenal glands: Normal. No mass. Right kidney: Normal size kidney with no mass or hydronephrosis. Left kidney: Normal size kidney. Developing staghorn calculus in the mid to lower pole. No obstructio n. Aorta: Mild atherosclerosis abdominal aorta with no aneurysm. No free fluid, intraperitoneal air or significant lymphadenopathy. GI tract: Prior gastric bypass. Stomach is not distended. No small bowel obstruction. Mild fluid dist ention of the distal small bowel. There is marked fecal retention and constipation greatest throughou t the RIGHT colon. Abdominal wall: Negative. No hernia. Pelvis: Normal. Osseous structures: Degenerative LEFT curvature lumbar spine. CT/CT kidney stone [id number] IMPRESSION: 1. Prior cholecystectomy. 2. Dilated common bile duct measures 14 mm. Common bile duct dilatation is sim ilar diameter on 01/01/2022. No distal obstructing calcified common bile duct sto ne identified. 3. No RIGHT renal obstruction. 4. LEFT renal staghorn calculus with no obstruction. 5. Marked constipation. Greatest throughout the RIGHT abdomen. 6. Normal appendix.
[2022-08-27 09:50] LABS: Basophils # 0.1 10^3/uL (0.0-0.1); Basophils % 0.6 %; Eosinophils # 0.2 10^3/uL (0.0-0.8); Eosinophils % 2.1 %; Hematocrit 42.1 % (37.0-47.0); Hemoglobin 13.1 g/dL (11.5-15.3); Lymphocytes # 1.8 10^3/uL (0.8-4.8); Lymphocytes % 20.6 %; Mean Corpuscular HGB Conc 31.1 g/dL (30.0-36.0); Mean Corpuscular Hemoglobin 29.9 pg (28.0-34.0); Mean Corpuscular Volume 96.1 fl (81-99); Mean Platelet Volume 9.6 fL (7.4-10.4); Monocytes # 0.7 10^3/uL (0.2-0.9); Monocytes % 8.1 %; Neutrophils # 5.88 10^3/uL (1.8-7.7); Neutrophils % 68.1 %; Nucleated Red Blood Cells % 0 %; Platelet Count 276 10^3/cmm (130-400); Red Blood Count 4.38 10^6/uL (4.1-5.3); White Blood Count 8.6 10^3/uL (4.0-10.0)
[2022-08-27 09:53] LABS: Add Urine Microscopic? NO; Bilirubin Urine Neg (Negative); Blood Urine Neg (Negative); Glucose Urine UA Norm (Normal); Ketones Urine 1+ (Negative); Nitrate Urine Negative (Negative); Protein Urine Neg (Negative); Urine Appearance Clear (CLEAR); Urine Color Yellow (Yellow); pH Urine 6 (5-7)
[2022-08-27 09:54] LABS: Charge for UA Resulting for Rev; Leukocyte Esterase Urine Negative (Negative); Urobilinogen Urine Neg (Negative)
[2022-08-27 10:07] LABS: Alanine Aminotransferase 15 U/L (0-33); Alkaline Phosphatase 96 U/L (35-105); Anion Gap 12.9 (5-19); Aspartate Amino Transferase 14 U/L (0-32); Blood Urea Nitrogen 16 mg/dL (8-23); Carbon Dioxide 28 mmol/L (22-29); Chloride 102 mmol/L (98-107); Globulin 2.6 g/dL (1.3-4.6); Glomerular Filtration Rate 99.1 mL/min (90-130); Glucose 120 mg/dL (65-115); Osmolality Calculated 290 mOsm/kg (285-295); Potassium 3.9 mmol/L (3.5-5.1); Sodium 139 mmol/L (136-145); Total Bilirubin 0.4 mg/dL (0.15-1.2); Total Protein 6.6 g/dL (6.6-8.7)
[2022-08-27] MEDS: sodium chloride 0.9% 1,000 ML 999 ML IV (10:34)
[2022-08-27] MEDS: HYDROmorphone 1 mg/mL INJ 1 mL IVP (10:35)
[2022-08-27] MEDS: ondansetron 2 mg/ML SDV 2 mL 4 MG IVP (10:35)
--- NOTE | 2022-08-27 10:49 | XRR_ITS ---
PROCEDURE INFORMATION: Exam: XR Chest Exam date and time: 08/27/2022 11:05 AM Age: 67 years old Clinical indication: Shortness of breath; Additional info: Back/flank pain, SOB TECHNIQUE: Imaging protocol: Radiologic exam of the chest. Views: 1 view. COMPARISON: CR (CHEST, ) 07/18/2022 11:38 AM FINDINGS: Lungs: Unremarkable. No consolidation. Pleural spaces: Unremarkable. No pleural effusion. No pneumothorax. Heart/Mediastinum: Unremarkable. No cardiomegaly. Bones/joints: Unremarkable. XR/XR chest 1V portable [id number] IMPRESSION: No acute findings.
--- NOTE | 2022-08-27 11:34 | ECG_ITS ---
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 Measurements Intervals [place] Rate: 74 P: 71 NM: 168 QRS: -2 QRSD: 83 T: 41 QT: 350 QTc: 390 Interpretive Statements SINUS RHYTHM POSSIBLE LEFT ATRIAL ENLARGEMENT [-0.1mV P-WAVE IN V1/V2] LOW QRS VOLTAGE IN PRECORDIAL LEADS [QRS DEFLECTION < 1.0 mV IN CHEST LEADS] POSSIBLE RIGHT VENTRICULAR CONDUCTION DELAY [RSR (QR) IN V1/V2] Compared to ECG 07/18/2022 13:40:50 Low QRS voltage now present T-wave abnormality no longer present Electronically Signed On 08-27-2022 18:12:22 [employer] by Emil Lopez M.D. [id number]
[2022-08-27 12:05] LABS: Troponin(5th) Baseline 8 ng/L (0-10)
[2022-08-27] MEDS: ketorolac 30 mg/mL INJ 15 MG IVP (12:06)
[2022-08-27 12:53] LABS: Troponin 5 2HR 8.29 ng/L (0-10)
[2022-08-27 13:04] LABS: Troponin 5 2HR Delta 0.29 ABS# (0-10)
[2022-08-27 13:54] VITALS: BP 141/70; PULSE 76; RESP 18; O2SAT 96
== END 2022-08-27 13:55 | disposition home or self-care (01) ==
PROVIDERS: Emergency Provider Physician Assistant; PCP Family Medicine
DX: M79.2 Neuralgia and neuritis, unspecified (principal); I10 Essential (primary) hypertension
CPT/HCPCS: 36415; 71045; 74176; 80053; 81003; 84484; 85025; 93005; 96374; 96375; 99285; J1170; J1885; J2405; J7030

== ENCOUNTER → 2022-09-04 08:44 | Outpatient (BNVA) | payer MEDICARE, SELFPAY | PROVIDERS: PCP Family Medicine; Visit Provider Family Medicine | DX: R10.9 Unspecified abdominal pain (principal); E03.9 Hypothyroidism, unspecified; E11.59 Type 2 diabetes mellitus with other circulatory complications; I10 Essential (primary) hypertension; K59.00 Constipation, unspecified | CPT/HCPCS: 80053; 82977; 83690; 84443; 85025 ==

== ENCOUNTER → 2022-09-07 10:38 | Outpatient (BNVA) | payer MEDICARE, SELFPAY | PROVIDERS: PCP Family Medicine; Visit Provider Podiatrist Foot & Ankle Surgery | DX: L60.0 Ingrowing nail (principal); M71.9 Bursopathy, unspecified; M21.622 Bunionette of left foot; Q82.8 Other specified congenital malformations of skin; M67.472 Ganglion, left ankle and foot | CPT/HCPCS: 17110; 99213 ==

== ENCOUNTER → 2022-10-08 14:16 | Outpatient (BNVA) | payer MEDICARE, SELFPAY | PROVIDERS: PCP Family Medicine; Visit Provider Student in an Organized Health Care Education/Training Program | DX: M25.561 Pain in right knee (principal); M25.562 Pain in left knee; G89.29 Other chronic pain; Z96.653 Presence of artificial knee joint, bilateral | CPT/HCPCS: 73560; 73565; 99204 ==

== ENCOUNTER → 2022-10-14 13:29 | Outpatient (BNVA) | payer MEDICARE, SELFPAY | PROVIDERS: PCP Family Medicine; Visit Provider Family Medicine | DX: E03.9 Hypothyroidism, unspecified (principal); R22.43 Localized swelling, mass and lump, lower limb, bilateral | CPT/HCPCS: 85025; 85651; 86140 ==

== ENCOUNTER → 2022-12-16 08:24 | Outpatient (BNVA) | payer MEDICARE, SELFPAY | PROVIDERS: PCP Family Medicine; Visit Provider Podiatrist Foot & Ankle Surgery | DX: L60.0 Ingrowing nail (principal); L60.8 Other nail disorders; M71.9 Bursopathy, unspecified; M21.622 Bunionette of left foot; Q82.8 Other specified congenital malformations of skin; M67.40 Ganglion, unspecified site; M20.41 Other hammer toe(s) (acquired), right foot; M20.42 Other hammer toe(s) (acquired), left foot | CPT/HCPCS: 11730; 99214 ==

== ENCOUNTER → 2022-12-30 11:13 | Outpatient (BNVA) | payer MEDICARE, SELFPAY | PROVIDERS: PCP Family Medicine; Visit Provider Family Medicine | DX: G25.81 Restless legs syndrome (principal); M51.36 Other intervertebral disc degeneration, lumbar region; N20.0 Calculus of kidney; K21.9 Gastro-esophageal reflux disease without esophagitis; E03.9 Hypothyroidism, unspecified; M79.2 Neuralgia and neuritis, unspecified; B02.23 Postherpetic polyneuropathy; I10 Essential (primary) hypertension; E11.59 Type 2 diabetes mellitus with other circulatory complications; E11.9 Type 2 diabetes mellitus without complications; Z13.6 Encounter for screening for cardiovascular disorders; Z13.220 Encounter for screening for lipoid disorders | CPT/HCPCS: 72100; 73502; 80053; 80061; 83036; 84439; 84443; 84481; 85025 ==

== ENCOUNTER 2023-01-11 06:00 | Outpatient (RCR) | payer MEDICARE, SELFPAY | END 2023-01-25 23:59 | disposition home or self-care (01) | LOC: MPT 06:00 | PROVIDERS: Visit Provider Family Medicine | DX: M25.552 Pain in left hip (principal) | CPT/HCPCS: 97110; 97140; 97162 ==

== ENCOUNTER → 2023-02-18 08:18 | Outpatient (BNVA) | payer MEDICARE, SELFPAY | PROVIDERS: Visit Provider Nurse Practitioner Family | DX: I96 Gangrene, not elsewhere classified (principal); L97.822 Non-pressure chronic ulcer of other part of left lower leg with fat layer exposed; L03.116 Cellulitis of left lower limb | CPT/HCPCS: 11042; 99213; 99214; A6212 ==

== ENCOUNTER → 2023-02-24 11:10 | Outpatient (BNVA) | payer MEDICARE, SELFPAY | PROVIDERS: Visit Provider Family Medicine | DX: N20.1 Calculus of ureter (principal); F32.A Depression, unspecified; F43.21 Adjustment disorder with depressed mood; R39.9 Unspecified symptoms and signs involving the genitourinary system; L73.9 Follicular disorder, unspecified; M25.552 Pain in left hip; F32.1 Major depressive disorder, single episode, moderate; M51.36 Other intervertebral disc degeneration, lumbar region | CPT/HCPCS: 81000 ==

== ENCOUNTER → 2023-02-25 08:42 | Outpatient (BNVA) | payer MEDICARE, SELFPAY | PROVIDERS: Visit Provider Nurse Practitioner Family | DX: L97.822 Non-pressure chronic ulcer of other part of left lower leg with fat layer exposed (principal); I96 Gangrene, not elsewhere classified; L89.892 Pressure ulcer of other site, stage 2; L03.116 Cellulitis of left lower limb | CPT/HCPCS: 97597; A6210 ==

== ENCOUNTER 2023-02-26 06:00 | Outpatient (RCR) | payer MEDICARE, SELFPAY | END 2023-03-27 23:59 | disposition home or self-care (01) | LOC: MPT 06:00 | PROVIDERS: Visit Provider Family Medicine | DX: M25.552 Pain in left hip (principal) | CPT/HCPCS: 97110; 97140 ==

== ENCOUNTER → 2023-03-04 08:44 | Outpatient (BNVA) | payer MEDICARE, SELFPAY | PROVIDERS: Visit Provider Nurse Practitioner Family | DX: I96 Gangrene, not elsewhere classified (principal); L97.822 Non-pressure chronic ulcer of other part of left lower leg with fat layer exposed; L97.812 Non-pressure chronic ulcer of other part of right lower leg with fat layer exposed; L89.892 Pressure ulcer of other site, stage 2 | CPT/HCPCS: 97597; A6210; A6212 ==

== ENCOUNTER → 2023-03-25 08:49 | Outpatient (BNVA) | payer MEDICARE, SELFPAY | PROVIDERS: Visit Provider Podiatrist Foot & Ankle Surgery | DX: L60.0 Ingrowing nail (principal) | CPT/HCPCS: 11750 ==

== ENCOUNTER 2023-03-28 06:00 | Outpatient (RCR) | payer MEDICARE, SELFPAY | END 2023-04-27 23:59 | disposition home or self-care (01) | LOC: MPT 06:00 | PROVIDERS: Visit Provider Family Medicine | DX: M25.552 Pain in left hip (principal) | CPT/HCPCS: 97110; 97140 ==

== ENCOUNTER 2023-04-28 06:00 | Outpatient (RCR) | payer MEDICARE, SELFPAY | END 2023-05-11 16:21 | disposition home or self-care (01) | LOC: MPT 06:00 | PROVIDERS: PCP Family Medicine; Visit Provider Family Medicine | DX: M25.552 Pain in left hip (principal) | CPT/HCPCS: 97110; 97140 ==